=== PATIENT | male | born 1995 | race African-American/Black ===

== ENCOUNTER 2018-02-26 02:37 | Emergency (ER) | payer SELFPAY ==
[2018-02-26 03:43] LABS: Absolute Lymphocytes (CBC) 3.6 K/uL (0.7-4.9); Absolute Monocytes 0.6 K/uL (0.1-1.3); Absolute Neutrophil 3.8 K/uL (1.8-8.0); Basophils % 0.6 % (0-1.3); Eosinophils % 0.9 % (0-4.4); Hematocrit 41.8 % (39.6-49.0); Lymphocytes % 44.4 % (15.3-44.8); MCH 28.9 pg (27.0-35.0); MCV 88.2 fL (80-100); MPV 10.8 fL (7.6-11.3); Monocytes % 7.7 % (3.3-12.3); RBC Red Blood Cell Count 4.74 M/uL (4.33-5.43)
[2018-02-26 03:45] LABS: Protime INR 0.97
[2018-02-26 03:59] LABS: CKMB Creatine Kinase MB 0.9 ng/ml (0.3-4.0)
[2018-02-26 04:01] LABS: Bicarbonate 29 mEq/L (21-31); Potassium 3.8 mEq/L (3.6-5.0); Sodium Level 132 mEq/L (135-145)
[2018-02-26 04:02] LABS: Albumin 3.6 g/dL (3.2-5.5); Alkaline Phosphatase 112 IU/L (42-121); BUN Blood Urea Nitrogen 11 mg/dL (6-20); Bilirubin Direct 0.2 mg/dL (0-0.2); Magnesium 1.8 mg/dL (1.8-2.5); Protein, Total 7.4 g/dL (6.0-8.3)
[2018-02-26 04:03] LABS: ALT/SGPT 41 IU/L (10-60); AST/SGOT 24 IU/L (10-42); Creatine Phosphokinase 102 IU/L (22-269); Glucose Level 485 mg/dL (65-120)
[2018-02-26] MEDS ORDERED: INSULIN -REGULAR HUMAN 50 UNIT/0.5 ML ML ONE (04:18)
--- NOTE | 2018-02-26 06:17 | ER ---
Nurse's Notes [facility] Name: Enriqueta Hearn Age: 22 yrs Sex: Male : 1995 Arrival Date: 02/26/2018 Time: 02:38 Bed 5 Private MD: Diagnosis: Chest pain, unspecified;Chest pain on breathing Presentation: 02/26 02:39 Presenting complaint: Patient states: Chest pain to center of chest. pt c/o SOB, no ak1 resp distress noted in ER5. 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 pt stated chest pain started around 0100. Transition of care: patient was not received from another setting of care. Onset of symptoms was February 26, 2018. Initial Sepsis Screen: Does the patient meet any 2 criteria? No. Patient's initial sepsis screen is negative. Does the patient have a suspected source of infection? No. Patient's initial sepsis screen is negative. Care prior to arrival: None. 02:39 Method Of Arrival: EMS: [facility] ak1 02:39 Acuity: HARESH 3 ak1 Triage Assessment: 02:43 General: Appears in no apparent distress. Behavior is calm, cooperative. Pain: ak1 Complains of pain in chest. EENT: No signs and/or symptoms were reported regarding the EENT system. Neuro: No deficits noted. Cardiovascular: Reports chest pain, shortness of breath. Respiratory: Reports shortness of breath at rest Airway Breath sounds are clear. GI: No signs and/or symptoms were reported involving the gastrointestinal system. : No signs and/or symptoms were reported regarding the genitourinary system. Derm: No signs and/or symptoms reported regarding the dermatologic system. Musculoskeletal: No signs and/or symptoms reported regarding the musculoskeletal system. Historical: - Allergies: 02:43 No Known Allergies; ak1 - Home Meds: 02:43 Metformin Oral [Active]; lisinopril Oral [Active]; Glipizide Oral [Active]; ak1 - PMHx: 02:43 Diabetes - NIDDM; Hypertension; Seizures; ak1 - PSHx: 02:43 left foot sx hardware; ak1 - Immunization history:: Adult Immunizations unknown. - Social history:: Smoking status: Patient/guardian denies using tobacco, Patient/guardian denies using alcohol, street drugs, The patient lives with family. - Family history:: not pertinent. Screenin:45 Abuse screen: Denies threats or abuse. Denies injuries from another. Nutritional ak1 screening: No deficits noted. Tuberculosis screening: No symptoms or risk factors identified. Fall Risk None identified. Assessment: 02:45 Pain: Pain does not radiate. Pain began 2 hours ago. ak1 02:46 Reassessment: Patient appears in no apparent distress at this time. No changes from ak1 previously documented assessment. Patient is alert, oriented x 3, equal unlabored respirations, skin warm/dry/pink. see triage assessment. 04:56 Reassessment: Patient appears in no apparent distress at this time. pt appears to be ak1 sleeping, eyes closed, resp even and unlabored, skin warm and dry. will continue to monitor. 06:11 Reassessment: Patient appears in no apparent distress at this time. No changes from ak1 previously documented assessment. Vital Signs: 02:39 BP 128 / 78; Pulse 73; Resp 16; Temp 98.4(O); Pulse Ox 98% on R/A; Weight 129.27 kg ak1 (R); Height 6 ft. 1 in. (185.42 cm) (R); Pain 6/10; 04:55 BP 110 / 65; Pulse 70; Resp 16; Pulse Ox 99% on R/A; Pain 0/10; ak1 06:10 BP 107 / 61; Pulse 84; Resp 16; Pulse Ox 99% on R/A; Pain 0/10; ak1 02:39 Body Mass Index 37.60 (129.27 kg, 185.42 cm) ak1 ED Course: 02:38 Patient arrived in ED. ds1 02:39 Paola Carvalho, RN is Primary Nurse. ak1 02:39 Griselda Coker MD is Attending Physician. ma2 02:41 Triage completed. ak1 02:43 Arm band placed on Patient placed in an exam room, on a stretcher, on pulse oximetry, ak1 Patient notified of wait time. 02:44 No provider procedures requiring assistance completed. Inserted saline lock: 20 gauge ak1 in right antecubital area, using aseptic technique. ,using aseptic technique. placed by Fiona Rubalcava RN Blood collected. Patient maintains SpO2 saturation greater than 95% on room air. 02:45 Patient has correct armband on for positive identification. Placed in gown. Bed in low ak1 position. Call light in reach. Side rails up X 1. Pulse ox on. NIBP on. 02:55 X-ray completed. Portable x-ray completed in exam room. Patient tolerated procedure kw well. 02:55 XRAY Chest (1 view) In Process Unspecified. EDMS 04:03 Notified ED physician of a critical lab result(s). Glucose 485. lp1 05:48 Repeat lab(s) drawn. by me, sent to lab. ak1 06:30 IV discontinued, intact, bleeding controlled, No redness/swelling at site. Pressure ak1 dressing applied. Administered Medications: 04:19 Drug: Insulin Regular Human 8 units {Co-Signature: chuyita (Fiona Mcneil RN).} Route: IVP; ak1 Site: right antecubital; 04:52 Follow up: Response: No adverse reaction ak1 05:09 Follow up: Response: Blood sugar is lowered; Blood sugar is lowered, ERP notified ak1 Point of Care Testing: Blood Glucose: 02:46 Blood Glucose: 420 mg/dL; ak1 04:25 Blood Glucose: 420 mg/dL; lp1 04:55 Blood Glucose: 337 mg/dL; ak1 Ranges: Outcome: 06:16 Discharge ordered by . ma2 06:29 Discharged to home ambulatory. ak1 06:29 Condition: good 06:29 Discharge instructions given to patient, Instructed on discharge instructions, follow up and referral plans. no drinking with medication, no driving heavy equipment, medication usage, Demonstrated understanding of instructions, follow-up care, medications, Prescriptions given X 1. 06:36 Patient left the ED. ak1 Signatures: Dispatcher [employer] [facility] Alexa Yoo Lyndsay Trinh Laura, RN RN lp1 Paola Carvalho RN RN ro1 Griselda Coker MD MD ma2 Laura Pena RN lp1
--- NOTE | 2018-02-26 06:17 | EDPHYS ---
Physician Documentation [facility] Name: Enriqueta Hearn Age: 22 yrs Sex: Male : 1995 Arrival Date: 02/26/2018 Time: 02:38 Bed 5 Private MD: ED Physician Griselda Coker HPI: 02/26 03:30 This 22 yrs old Black Male presents to ER via EMS with complaints of Chest Pain. ma2 03:30 The patient or guardian reports chest pain that is located primarily in the substernal ma2 area. The pain radiates to Associated signs and symptoms: Pertinent positives: Pertinent negatives: abdominal pain, cough, diaphoresis, headache, shortness of breath, syncope, vomiting. Duration: The patient or guardian reports a single episode, that is now resolved. Severity of pain: At its worst the pain was mild. The patient has not experienced similar symptoms in the past. had hx of cardiomyopathy when he was 5 yrs old that is resolved here with chest pain x 2 hrs that is been constant and worse with deep breath . Historical: - Allergies: 02:43 No Known Allergies; ak1 - Home Meds: 02:43 Metformin Oral [Active]; lisinopril Oral [Active]; Glipizide Oral [Active]; ak1 - PMHx: 02:43 Diabetes - NIDDM; Hypertension; Seizures; ak1 - PSHx: 02:43 left foot sx hardware; ak1 - Immunization history:: Adult Immunizations unknown. - Social history:: Smoking status: Patient/guardian denies using tobacco, Patient/guardian denies using alcohol, street drugs, The patient lives with family. - Family history:: not pertinent. ROS: 03:30 Constitutional: Negative for fever, chills, and weight loss. ma2 03:30 Cardiovascular: Positive for chest pain. 03:30 All other systems are negative. Exam: 03:30 Constitutional: This is a well developed, well nourished patient who is awake, alert, ma2 and in no acute distress. Head/Face: Normocephalic, atraumatic. Chest/axilla: Normal chest wall appearance and motion. Nontender with no deformity. No lesions are appreciated. Cardiovascular: Regular rate and rhythm with a normal S1 and S2. No gallops, murmurs, or rubs. Normal PMI, no JVD. No pulse deficits. Respiratory: Lungs have equal breath sounds bilaterally, clear to auscultation and percussion. No rales, rhonchi or wheezes noted. No increased work of breathing, no retractions or nasal flaring. Abdomen/GI: Soft, non-tender, with normal bowel sounds. No distension or tympany. No guarding or rebound. No evidence of tenderness throughout. MS/ Extremity: Pulses equal, no cyanosis. Neurovascular intact. Full, normal range of motion. Neuro: Awake and alert, GCS 15, oriented to person, place, time, and situation. Cranial nerves II-XII grossly intact. Motor strength 5/5 in all extremities. Sensory grossly intact. Cerebellar exam normal. Normal gait. Vital Signs: 02:39 BP 128 / 78; Pulse 73; Resp 16; Temp 98.4(O); Pulse Ox 98% on R/A; Weight 129.27 kg ak1 (R); Height 6 ft. 1 in. (185.42 cm) (R); Pain 6/10; 04:55 BP 110 / 65; Pulse 70; Resp 16; Pulse Ox 99% on R/A; Pain 0/10; ak1 06:10 BP 107 / 61; Pulse 84; Resp 16; Pulse Ox 99% on R/A; Pain 0/10; ak1 02:39 Body Mass Index 37.60 (129.27 kg, 185.42 cm) ak1 MDM: 02:40 Patient medically screened. ma2 03:30 Differential diagnosis: anxiety, chest wall pain, costochondritis, gastroesophageal ma2 reflux disease (GERD), unlikely aortic dissection given CXR with no widend mediastinum and CP is pleuretic. 06:15 HEART Score: History: Slightly Suspicious (0), ECG: Non specific repolarization ma2 disturbance / LBTB / PM (1), Age: < or = 45 years (0), Troponin: < or = 1 x Normal Limit (0). MOHAMUD Risk Score: TOTAL SCORE = 1. Data reviewed: vital signs, nurses notes, EMS record, penitentiary records, lab test result(s), EKG, radiologic studies. Counseling: I had a detailed discussion with the patient and/or guardian regarding: the historical points, exam findings, and any diagnostic results supporting the discharge/admit diagnosis, the presence of at least one elevated blood pressure reading (>120/80) during this emergency department visit, the need for outpatient follow up. 02/26 02:40 Order name: Basic Metabolic Panel; Complete Time: 04:39 02/26 02:40 Order name: BNP; Complete Time: 04:39 02/26 02:40 Order name: CBC with Diff; Complete Time: 04:39 02/26 02:40 Order name: Ckmb; Complete Time: 04:39 02/26 02:40 Order name: CPK; Complete Time: 04:39 02/26 02:40 Order name: LFT's; Complete Time: 04:39 02/26 02:40 Order name: Magnesium; Complete Time: 04:39 02/26 02:40 Order name: PT-INR; Complete Time: 04:39 02/26 02:40 Order name: Ptt, Activated; Complete Time: 04:39 02/26 02:40 Order name: Troponin (emerg Dept Use Only); Complete Time: 04:39 02/26 02:40 Order name: XRAY Chest (1 view) 02/26 02:40 Order name: EKG; Complete Time: 02:41 02/26 05:10 Order name: Troponin (emerg Dept Use Only) [facility] 02/26 02:40 Order name: Cardiac monitoring; Complete Time: 02:51 02/26 02:40 Order name: EKG - Nurse/Tech; Complete Time: 03:00 02/26 02:40 Order name: IV Saline Lock; Complete Time: 02:51 02/26 02:40 Order name: Labs collected and sent; Complete Time: 02:51 02/26 02:40 Order name: O2 Per Protocol; Complete Time: 02:51 02/26 02:40 Order name: O2 Sat Monitoring; Complete Time: 02:51 ma Administered Medications: 04:19 Drug: Insulin Regular Human 8 units {Co-Signature: [email or web address] (Fiona Mcneil RN).} Route: IVP; ak1 Site: right antecubital; 04:52 Follow up: Response: No adverse reaction ak1 05:09 Follow up: Response: Blood sugar is lowered; Blood sugar is lowered, ERP notified ak1 Point of Care Testing: Blood Glucose: 02:46 Blood Glucose: 420 mg/dL; ak1 04:25 Blood Glucose: 420 mg/dL; lp1 04:55 Blood Glucose: 337 mg/dL; ak1 Ranges: Critical Glucose Levels:Adult <50 mg/dl or >400 mg/dl <40 mg/dl or >180 mg/dl Disposition: 02/26/18 06:16 Discharged to Home. Impression: Chest pain, unspecified, Chest pain on breathing. - Condition is Stable. - Prescriptions for Tylenol- Codeine #3 300-30 mg Oral Tablet - take 2 tablet by ORAL route every 6 hours As needed; 30 tablet. - Work release form, Medication Reconciliation Form, Thank You Letter, Antibiotic Education, Prescription Opioid Use form. - Follow up: Private Physician; When: Tomorrow; Reason: Continuance of care. - Problem is new. - Symptoms have improved. Signatures: Dispatcher [employer] Paola Garcia RN RN ak1 Griselda Coker MD MD ma2 Fiona Mcneil RN lp1 Corrections: (The following items were deleted from the chart) 06:29 02:40 Urine Dipstick-Ancillary ordered. [facility] ak1 06:36 06:16 02/26/2018 06:16 Discharged to Home. Impression: Chest pain, unspecified; Chest ak1 pain on breathing. Condition is Stable. Forms are Medication Reconciliation Form, Thank You Letter, Antibiotic Education, Prescription Opioid Use. Follow up: Private Physician; When: Tomorrow; Reason: Continuance of care. Problem is new. Symptoms have improved. ma2
--- NOTE | 2018-02-26 06:53 | EKG ---
Test Date: 2018-02-26 Test Time: 02:58:57 Chest Painting Leader: EFRAIN MEASUREMENT RESULTS: Intervals: Rate: 69 AL: 152 QRSD: 122 QT: 416 QTc: 445 [place]: P: 32 AL: 152 QRS: 80 T: 23 INTERPRETIVE STATEMENTS: Normal sinus rhythm Nonspecific intraventricular conduction delay Borderline ECG Compared to ECG 03/03/2016 01:44:45 Intraventricular conduction delay now present Incomplete right bundle-branch block no longer present ST (T wave) deviation no longer present Myocardial infarct finding no longer present Electronically Signed On 02-26-18 06:53:21 CDT by Balbir Wilkinson
--- NOTE | 2018-02-26 08:15 | RAD REPORT ---
EXAM DESCRIPTION: Jesus Single View02/26/2018 2:57 am CLINICAL HISTORY: Chest pain COMPARISON: 2016 FINDINGS: The lungs appear clear of acute infiltrate. The heart is normal size IMPRESSION: No acute abnormalities displayed
== END 2018-02-26 06:36 | disposition home or self-care (01) ==
LOC: ER 02:37
DX: R07.1 Chest pain on breathing (principal); I10 Essential (primary) hypertension; E11.9 Type 2 diabetes mellitus without complications; Z79.4 Long term (current) use of insulin
CPT/HCPCS: 36415; 71045; 80048; 80076; 82550; 82553; 82962; 83735; 83880; 84484; 85025; 85610; 85730; 93005; 96374; 99285

== ENCOUNTER 2018-09-16 18:41 | Emergency (ER) | payer SELFPAY ==
[2018-09-16] MEDS ORDERED: KETOROLAC 30 MG/ML INJ ONE (19:51)
[2018-09-16 20:24] LABS: Absolute Lymphocytes (CBC) 3.3 K/uL (0.7-4.9); Absolute Monocytes 0.9 K/uL (0.1-1.3); Absolute Neutrophil 5.9 K/uL (1.8-8.0); Eosinophils % 0.3 % (0-4.4); Hematocrit 41.7 % (39.6-49.0); Lymphocytes % 32.4 % (15.3-44.8); MCH 29.9 pg (27.0-35.0); MCV 87.5 fL (80-100); MPV 9.9 fL (7.6-11.3); Monocytes % 8.9 % (3.3-12.3); RBC Red Blood Cell Count 4.76 M/uL (4.33-5.43)
[2018-09-16 20:24] LABS: Urine Blood NEGATIVE (NEG); Urine Glucose 2+ (NEG); Urine Protein NEGATIVE (NEG); Urine pH 5.5 (5.0-7.0)
[2018-09-16] MEDS ORDERED: INSULIN -REGULAR HUMAN 50 UNIT/0.5 ML ML ONE (20:43)
[2018-09-16 20:47] LABS: BUN Blood Urea Nitrogen 12 mg/dL (7-18); Bicarbonate 27 mmol/L (21-32); Glucose Level 325 mg/dL (74-106); Potassium 4.6 mmol/L (3.5-5.1); Sodium Level 136 mmol/L (136-145)
[2018-09-16 21:04] LABS: Urine Bacteria <20 /HPF (NONE SEEN); Urine Culture Reflex Order NOT NEEDED; Urine RBC <5 /HPF (NONE SEEN)
--- NOTE | 2018-09-16 21:14 | ER ---
Nurse's Notes [facility] Name: Enriqueta Hearn Age: 22 yrs Sex: Male : 1995 Arrival Date: 09/16/2018 Time: 18:44 Bed 10 Private MD: None, None Diagnosis: Low back pain;Diabetes mellitus due to underlying condition with hyperglycemia Presentation: 09/16 19:03 Presenting complaint: Patient states: "For the past 2 days I've been having these deep aj1 pain in my back. I haven't had these in 3 years or so. If I move a certain way it comes back and it wont go away for hours" Denies injury. Transition of care: patient was not received from another setting of care. Onset of symptoms was September 14, 2018. Risk Assessment: Do you want to hurt yourself or someone else? Patient reports no desire to harm self or others. Initial Sepsis Screen: Does the patient meet any 2 criteria? No. Patient's initial sepsis screen is negative. Does the patient have a suspected source of infection? No. Patient's initial sepsis screen is negative. Care prior to arrival: None. 19:03 Method Of Arrival: Ambulatory aj1 19:03 Acuity: HARESH 4 aj1 Triage Assessment: 19:05 General: Appears in no apparent distress. uncomfortable, Behavior is calm, cooperative, aj1 appropriate for age. Pain: Complains of pain in back Pain currently is 7 out of 10 on a pain scale. Neuro: Level of Consciousness is awake, alert, obeys commands. Cardiovascular: Patient's skin is warm and dry. Respiratory: Airway is patent Respiratory effort is even, unlabored, Respiratory pattern is regular, symmetrical. Musculoskeletal: Range of motion: intact in all extremities. Historical: - Allergies: 19:05 No Known Allergies; aj1 - Home Meds: 19:05 None [Active]; aj1 - PMHx: 19:05 Diabetes - NIDDM; Hypertension; Seizures; aj1 - Immunization history:: Flu vaccine is up to date. - Social history:: Smoking status: Patient/guardian denies using tobacco. - Ebola Screening: : Patient denies travel to an Ebola-affected area in the 21 days before illness onset. Screenin:49 Abuse screen: none noted. Nutritional screening: No deficits noted. Tuberculosis jl3 screening: No symptoms or risk factors identified. Fall Risk None identified. Assessment: 19:39 General: Appears uncomfortable, Behavior is calm, cooperative. General: Pt states jlCecy played basketball earlier in the day, Was walking home and back started hurting with pain radiating to knees. Walked into ER. Pain: Complains of pain in back. Neuro: No deficits noted. Neuro: Level of Consciousness is awake, alert, obeys commands, Oriented to person, place, time, situation, Licensed Funeral Director are equal bilaterally Moves all extremities. Full function Gait is steady, Speech is normal, Facial symmetry appears normal, Pupils are PERRLA, Intact. Cardiovascular: No deficits noted. Respiratory: No deficits noted. GI: No deficits noted. EENT: No deficits noted. Vital Signs: 19:05 BP 135 / 90; Pulse 95; Resp 20; Temp 97.5; Pulse Ox 99% on R/A; Weight 106.59 kg (R); aj1 Height 6 ft. 1 in. (185.42 cm) (R); Pain 7/10; 19:34 BP 133 / 83; Pulse 78; Resp 18; Pulse Ox 98% on R/A; mt 20:42 BP 142 / 86; Pulse 78; Resp 18; Pulse Ox 98% on R/A; mt 19:05 Body Mass Index 31.00 (106.59 kg, 185.42 cm) aj1 ED Course: 18:44 Patient arrived in ED. mr 18:45 None, None is Private Physician. mr 19:04 Triage completed. aj1 19:05 Arm band placed on Patient placed in waiting room, Patient notified of wait time. aj1 19:24 Andre Tobias PA is PHCP. cp 19:24 Andre Shelley MD is Attending Physician. cp 19:39 Luis Todd, CRIS is Primary Nurse. jl3 20:10 Inserted saline lock: 20 gauge in right antecubital area, using aseptic technique. mt Blood collected. 22:49 No provider procedures requiring assistance completed. IV discontinued. jl3 22:50 Patient has correct armband on for positive identification. jl3 Administered Medications: 19:55 Drug: TORadol 60 mg Route: IM; Site: right gluteus; jl3 20:17 Follow up: Response: No adverse reaction; Pain is decreased jl3 20:39 Drug: NovoLIN R 10 units {Co-Signature: bb (Marya gNuyen RN).} {Note: Per FSBS 302.} jl3 Route: Sub-Q; Site: left upper arm; 22:51 Follow up: Response: No adverse reaction jl3 Point of Care Testing: Blood Glucose: 20:10 Blood Glucose: 302 mg/dL; tn Ranges: Outcome: 21:13 Discharge ordered by . jb 22:50 Discharged to home ambulatory. jl3 22:50 Condition: stable 22:50 Discharge instructions given to patient, Prescriptions given X 3. 22:51 Patient left the ED. jl3 Signatures: Susu Alvarez, RN RN aj1 Jaylon, Emy mr PeytonLuis RN RN jl3 Andre Tobias PA PA cp Thompson, Moriah tn Marya sosa
--- NOTE | 2018-09-16 21:14 | EDPHYS ---
Physician Documentation [facility] Name: Enriqueta Hearn Age: 22 yrs Sex: Male : 1995 Arrival Date: 09/16/2018 Time: 18:44 Bed 10 Private MD: None, None ED Physician Andre Shelley HPI: 09/16 19:35 This 22 yrs old Black Male presents to ER via Ambulatory with complaints of Back Pain. cp 19:35 The patient presents with pain that is acute, with no known mechanism of injury. The cp symptoms are located in the low back. Onset: The symptoms/episode began/occurred 2 day(s) ago. The pain does not radiate. Associated signs and symptoms: Pertinent negatives: abdominal pain, chest pain, constipation, dysuria, fever, hematuria, incontinence, numbness, tingling, urinary retention, weakness. The problem was sustained from unknown cause. Modifying factors: the patient symptoms are aggravated by movement. Severity of symptoms: in the emergency department the symptoms are unchanged, despite home interventions. The patient has experienced similar episodes in the past, a few times. Historical: - Allergies: 19:05 No Known Allergies; aj1 - Home Meds: 19:05 None [Active]; aj1 - PMHx: 19:05 Diabetes - NIDDM; Hypertension; Seizures; aj1 - Immunization history:: Flu vaccine is up to date. - Social history:: Smoking status: Patient/guardian denies using tobacco. - Ebola Screening: : Patient denies travel to an Ebola-affected area in the 21 days before illness onset. ROS: 19:40 Constitutional: Negative for body aches, chills, fever, poor PO intake. cp 19:40 Eyes: Negative for injury, pain, redness, and discharge. cp 19:40 ENT: Negative for ear pain, sore throat, difficulty swallowing, difficulty handling secretions. 19:40 Cardiovascular: Negative for chest pain, edema, palpitations. 19:40 Respiratory: Negative for cough, shortness of breath, wheezing. 19:40 Abdomen/GI: Negative for abdominal pain, nausea, vomiting, and diarrhea. 19:40 Back: Positive for pain with movement, of the low back area, Negative for injury or acute deformity, decreased range of motion, radiated pain. 19:40 : Negative for urinary symptoms, difficulty urinating, testicular pain 19:40 MS/extremity: Negative for injury or acute deformity, decreased range of motion, pain, paresthesias, swelling. 19:40 Skin: Negative for cellulitis, rash. 19:40 Neuro: Negative for dizziness, numbness, tingling, weakness. 19:40 All other systems are negative. Exam: 19:48 Constitutional: The patient appears in no acute distress, alert, awake, cp non-diaphoretic, non-toxic, well developed, well nourished, overweight 19:48 Head/Face: Normocephalic, atraumatic. cp 19:48 Eyes: Periorbital structures: appear normal, Conjunctiva: normal, no exudate, no injection, Sclera: no appreciated abnormality, Lids and lashes: appear normal, bilaterally. 19:48 ENT: External ear(s): are unremarkable, Nose: is normal, Mouth: is normal, Posterior pharynx: is normal, airway is patent, no erythema, no exudate. 19:48 Neck: ROM/movement: is normal, is supple, without pain, no range of motions limitations, no nuchal rigidity. 19:48 Chest/axilla: Inspection: normal, Palpation: is normal, no crepitus, no tenderness. 19:48 Cardiovascular: Rate: normal, Rhythm: regular, Heart sounds: murmur, not appreciated, Edema: is not appreciated. 19:48 Respiratory: the patient does not display signs of respiratory distress, Respirations: normal, no use of accessory muscles, no retractions, no splinting, no tachypnea, labored breathing, is not present, Breath sounds: are clear throughout, no decreased breath sounds, no stridor, no wheezing. 19:48 Abdomen/GI: Inspection: abdomen appears normal, Bowel sounds: active, all quadrants, Palpation: abdomen is soft and non-tender, in all quadrants. 19:48 Back: pain, that is mild, of the low back area, ROM is painful, with flexion, muscle spasm, is not present, Straight leg raises: of both lower extremities does not illicit pain. 19:48 Skin: cellulitis, is not appreciated, no rash present. 19:48 Neuro: Orientation: to person, place \T\ time. Mentation: is normal, Cerebellar function: is grossly normal, Motor: moves all fours, strength is normal, Sensation: is normal, Gait: is steady, Deep tendon reflexes are 2+ (normal) in the right patellar, right Achilles, left patellar and left Achilles. Vital Signs: 19:05 BP 135 / 90; Pulse 95; Resp 20; Temp 97.5; Pulse Ox 99% on R/A; Weight 106.59 kg (R); aj1 Height 6 ft. 1 in. (185.42 cm) (R); Pain 7/10; 19:34 BP 133 / 83; Pulse 78; Resp 18; Pulse Ox 98% on R/A; mt 20:42 BP 142 / 86; Pulse 78; Resp 18; Pulse Ox 98% on R/A; mt 19:05 Body Mass Index 31.00 (106.59 kg, 185.42 cm) aj1 MDM: 19:25 Patient medically screened. robert 20:00 Differential diagnosis: Cholelithiasis Pyelonephritis ruptured disc, sprain, cp Ureterolithiasis. 21:10 Data reviewed: vital signs, nurses notes, lab test result(s), and as a result, I will cp discharge patient. 21:10 Counseling: I had a detailed discussion with the patient and/or guardian regarding: the cp historical points, exam findings, and any diagnostic results supporting the discharge/admit diagnosis, lab results, the need for outpatient follow up, for definitive care, a family practitioner, to return to the emergency department if symptoms worsen or persist or if there are any questions or concerns that arise at home. Response to treatment: the patient's symptoms have markedly improved after treatment, VSS. Labs reviewed and discussed with patient concerning elevated glucose. Patient reports he has not been taking prescribed meds for diabetes. Will discharge to home for continued monitoring. 09/16 19: Order name: Urine Microscopic Only; Complete Time: 21:06 09/16 19:56 Order name: Urine Dipstick--Ancillary (enter results); Complete Time: 20:34 ar5 09/16 19:57 Order name: BMP; Complete Time: 21:06 09/16 21:06 Interpretation: Normal except: GLUC 325. 09/16 19:57 Order name: CBC with Diff; Complete Time: 20:34 09/16 19:25 Order name: Urine Dipstick-Ancillary (obtain specimen); Complete Time: 19:52 09/16 19:57 Order name: Accucheck Blood Glucose; Complete Time: 20:10 cp Administered Medications: 19:55 Drug: TORadol 60 mg Route: IM; Site: right gluteus; jl3 20:17 Follow up: Response: No adverse reaction; Pain is decreased jl3 20:39 Drug: NovoLIN R 10 units {Co-Signature: ian (Marya Nguyen RN).} {Note: Per FSBS 302.} jl3 Route: Sub-Q; Site: left upper arm; 22:51 Follow up: Response: No adverse reaction jl3 Point of Care Testing: Blood Glucose: 20:10 Blood Glucose: 302 mg/dL; mt Ranges: Critical Glucose Levels:Adult <50 mg/dl or >400 mg/dl <40 mg/dl or >180 mg/dl Disposition: 09/16/18 21:13 Discharged to Home. Impression: Low back pain, Diabetes mellitus due to underlying condition with hyperglycemia. - Condition is Stable. - Discharge Instructions: Form - Return To Work, Back Pain, Adult, Blood Glucose Monitoring, Adult, Diabetes Mellitus and Food, Back Exercises, [id number]. - Prescriptions for Anaprox DS 550 mg Oral Tablet - take 1 tablet by ORAL route every 12 hours As needed; 20 tablet. Metformin 500 mg Oral Tablet - take 1 tablet by ORAL route once daily for 7 days Then take 1 tablet with morning meals AND evening meals; 60 tablet. Cyclobenzaprine 10 mg Oral Tablet - take 1 tablet by ORAL route every 8 hours As needed no driving while taking medication; 20 tablet. - Family Work Release, Medication Reconciliation Form, Thank You Letter, Antibiotic Education, Prescription Opioid Use, Work release form form. - Follow up: Private Physician; When: 2 - 3 days; Reason: Recheck today's complaints. - Problem is new. - Symptoms have improved. Addendum: 09/18/2018 07:17 Co-signature as Attending Physician, Andre Shelley MD I agree with the assessment and c waldron plan of care. Signatures: Dispatcher [employer] Susu Enriquez RN RN aj1 Andre Shelley MD MD cha Lowman, John, RN RN jl3 Andre Tobias PA PA cp Marya sosa Corrections: (The following items were deleted from the chart) 09/16 22:51 21:13 09/16/2018 21:13 Discharged to Home. Impression: Low back pain; Diabetes mellitus jl3 due to underlying condition with hyperglycemia. Condition is Stable. Forms are Medication Reconciliation Form, Thank You Letter, Antibiotic Education, Prescription Opioid Use. Follow up: Private Physician; When: 2 - 3 days; Reason: Recheck today's complaints. Problem is new. Symptoms have improved. cp
== END 2018-09-16 22:51 | disposition home or self-care (01) ==
LOC: ER 18:41
DX: M54.5 Low back pain (principal); E11.65 Type 2 diabetes mellitus with hyperglycemia
CPT/HCPCS: 36415; 80048; 81003; 81015; 82962; 85025; 96372; 99284

== ENCOUNTER 2019-01-15 20:19 | Emergency (ER) | payer SELFPAY ==
--- NOTE | 2019-01-15 21:33 | EDPHYS ---
Physician Documentation [facility] Name: Enriqueta Hearn Age: 23 yrs Sex: Male : 1995 Arrival Date: 01/15/2019 Time: 20:24 Bed 14 Private MD: ED Physician Junaid Kilgore HPI: 01/15 21:25 This 23 yrs old Black Male presents to ER via Ambulatory with complaints of Eye pkl Swelling. 21:25 The patient is experiencing burning, redness, itching. Onset: The symptoms/episode pkl began/occurred 2 day(s) ago. Historical: - Allergies: 21:00 No Known Allergies; lp1 - Home Meds: 21:00 None [Active]; lp1 - PMHx: 21:00 Diabetes - NIDDM; Hypertension; Seizures; lp1 - PSHx: 21:00 None; lp1 - Immunization history:: Adult Immunizations up to date. - Social history:: Smoking status: Patient/guardian denies using tobacco. - Ebola Screening: : No symptoms or risks identified at this time. ROS: 21:25 ENT: Negative for injury, pain, and discharge. pkl 21:25 Eyes: Positive for itching, redness, swelling. 21:25 Neck: Negative for stiffness. 21:25 Cardiovascular: Negative for chest pain. 21:25 Respiratory: Negative for acute changes. 21:25 Abdomen/GI: Negative for abdominal pain, nausea, vomiting, and diarrhea. 21:25 Back: Negative for acute changes. 21:25 : Negative for urinary symptoms. 21:25 MS/extremity: Negative for acute changes. 21:25 Skin: Negative for rash. 21:25 Neuro: Negative for altered mental status. Exam: 21:28 Head/Face: Normocephalic, atraumatic. pkl 21:28 Eyes: Periorbital structures: swelling, that is mild, on the , Pupils: no acute changes, normal size, Conjunctiva: injected, in the right eye. 21:28 ENT: Exam is negative for acute changes. 21:28 Neck: Exam negative for acute changes. 21:28 Chest/axilla: Exam negative for acute changes. 21:28 Cardiovascular: Rate: normal, Rhythm: regular. 21:28 Respiratory: the patient does not display signs of respiratory distress, Respirations: normal, Breath sounds: are clear throughout. 21:28 Abdomen/GI: Exam negative for acute changes. 21:28 Back: Exam negative for acute changes. 21:28 : Exam negative for acute changes. 21:28 Musculoskeletal/extremity: Exam is negative for acute changes. 21:28 Skin: Exam negative for rash. 21:28 Neuro: Orientation: is normal, Mentation: is normal, Cranial nerves: grossly normal, Motor: is normal. Vital Signs: 20:59 BP 129 / 86; Pulse 80; Resp 18; Temp 98.5(O); Pulse Ox 98% on R/A; Weight 129.27 kg; lp1 Height 6 ft. 1 in. (185.42 cm); Pain 6/10; 20:59 Body Mass Index 37.60 (129.27 kg, 185.42 cm) lp1 Visual Acuity: 22:05 Left Eye Visual acuity 20/50, Pupil size 3 mm, Normal, React To Light, Reactive To jd3 Accomodation; Right Eye Visual acuity 20/50, Pupil size 3 mm, Normal, React To Light, Reactive To Accomodation; Both Eyes Visual acuity 20/25; Without Lenses; MDM: 21:17 Patient medically screened. pk 21:28 Data reviewed: vital signs, nurses notes. pkl 01/15 21:28 Order name: Visual Acuity; Complete Time: 22:07 pk Administered Medications: No medications were administered Disposition: 01/15/19 21:32 Discharged to Home. Impression: Conjunctivitis right eye. - Condition is Stable. - Medication Reconciliation Form, Thank You Letter, Antibiotic Education, Prescription Opioid Use, Work release form form. - Follow up: Ren Ashley MD; When: 2 - 3 days; Reason: Re-evaluation by your physician. - Problem is new. - Symptoms are unchanged. Signatures: Junaid Kilgore MD MD pkl Fiona Mcneil RN RN lp1 Lawrence Emerson, CRIS RN jd3 Corrections: (The following items were deleted from the chart) 22:07 21:32 01/15/2019 21:32 Discharged to Home. Impression: Conjunctivitis right eye. jd3 Condition is Stable. Forms are Medication Reconciliation Form, Thank You Letter, Antibiotic Education, Prescription Opioid Use. Follow up: Ren Ashley; When: 2 - 3 days; Reason: Re-evaluation by your physician. Problem is new. Symptoms are unchanged. pkl
--- NOTE | 2019-01-15 21:33 | ER ---
Nurse's Notes [facility] Name: Enriqueta Hearn Age: 23 yrs Sex: Male : 1995 Arrival Date: 01/15/2019 Time: 20:24 Bed 14 Private MD: Diagnosis: Conjunctivitis right eye Presentation: 01/15 20:59 Presenting complaint: Patient states: Redness to right eye for 2 days; Denies any lp1 trauma; Complaint of burning and itching to right eye. Transition of care: patient was not received from another setting of care. Onset of symptoms was January 14, 2019. Risk Assessment: Do you want to hurt yourself or someone else? Patient reports no desire to harm self or others. Initial Sepsis Screen: Does the patient meet any 2 criteria? No. Patient's initial sepsis screen is negative. Does the patient have a suspected source of infection? No. Patient's initial sepsis screen is negative. Care prior to arrival: None. 20:59 Method Of Arrival: Ambulatory lp1 20:59 Acuity: HARESH 5 lp1 Historical: - Allergies: 21:00 No Known Allergies; lp1 - Home Meds: 21:00 None [Active]; lp1 - PMHx: 21:00 Diabetes - NIDDM; Hypertension; Seizures; lp1 - PSHx: 21:00 None; lp1 - Immunization history:: Adult Immunizations up to date. - Social history:: Smoking status: Patient/guardian denies using tobacco. - Ebola Screening: : No symptoms or risks identified at this time. Screenin:00 Abuse screen: Denies threats or abuse. Denies injuries from another. Nutritional lp1 screening: No deficits noted. Tuberculosis screening: No symptoms or risk factors identified. Fall Risk None identified. Assessment: 21:13 General: Appears in no apparent distress. uncomfortable, Behavior is calm, cooperative, jd3 appropriate for age. Pain: Complains of pain in right eye Quality of pain is described as aching. Neuro: Level of Consciousness is awake, alert, obeys commands, Oriented to person, place, time, situation, Appropriate for age Pupils are PERRLA. Cardiovascular: Denies chest pain, Capillary refill < 3 seconds Patient's skin is warm and dry. Respiratory: Airway is patent Respiratory effort is even, unlabored, Respiratory pattern is regular, symmetrical. GI: No signs and/or symptoms were reported involving the gastrointestinal system. : No signs and/or symptoms were reported regarding the genitourinary system. EENT: Sclera/Cornea are reddened in right eye. Derm: Skin is intact, Skin is dry, Skin is normal, Skin temperature is warm. Musculoskeletal: Circulation, motion, and sensation intact. Range of motion: intact in all extremities. 22:05 Reassessment: Patient appears in no apparent distress at this time. Patient and/or jd3 family updated on plan of care and expected duration. Pain level reassessed. Patient is alert, oriented x 3, equal unlabored respirations, skin warm/dry/pink. Vital Signs: 20:59 BP 129 / 86; Pulse 80; Resp 18; Temp 98.5(O); Pulse Ox 98% on R/A; Weight 129.27 kg; lp1 Height 6 ft. 1 in. (185.42 cm); Pain 6/10; 20:59 Body Mass Index 37.60 (129.27 kg, 185.42 cm) lp1 Visual Acuity: 22:05 Left Eye Visual acuity 20/50, Pupil size 3 mm, Normal, React To Light, Reactive To jd3 Accomodation; Right Eye Visual acuity 20/50, Pupil size 3 mm, Normal, React To Light, Reactive To Accomodation; Both Eyes Visual acuity 20/25; Without Lenses; ED Course: 20:24 Patient arrived in ED. am2 20:59 Triage completed. lp1 21:00 Arm band placed on left wrist. lp1 21:11 Lawrence Emerson RN is Primary Nurse. jd3 21:14 Patient has correct armband on for positive identification. Bed in low position. Call jd3 light in reach. Side rails up X 1. 21:17 Junaid Kilgore MD is Attending Physician. pkl 21:31 Ren Ashley MD is Referral Physician. pkl 22:05 No provider procedures requiring assistance completed. Patient did not have IV access jd3 during this emergency room visit. Administered Medications: No medications were administered Outcome: 21:32 Discharge ordered by . pkl 22:06 Discharged to home ambulatory. jd3 22:06 Condition: stable 22:06 Discharge instructions given to patient, Instructed on discharge instructions, follow up and referral plans. Demonstrated understanding of instructions, follow-up care. 22:07 Patient left the ED. jd3 Signatures: Junaid Kilgore MD MD pkFiona Lilly RN RN lp1 Minal Real Jonathon, RN RN jd3
== END 2019-01-15 22:07 | disposition home or self-care (01) ==
LOC: ER 20:19
DX: H10.9 Unspecified conjunctivitis (principal); E11.9 Type 2 diabetes mellitus without complications; I10 Essential (primary) hypertension
CPT/HCPCS: 99282

== ENCOUNTER 2019-06-02 18:24 | Emergency (ER) | payer SELFPAY ==
[2019-06-02] MEDS ORDERED: DIPHENHYDRAMINE 50 MG/ML VIAL ONE (19:19)
[2019-06-02] MEDS ORDERED: METOCLOPRAMIDE 10 MG/2mL INJ ONE (19:19)
[2019-06-02] MEDS ORDERED: NA CHLORIDE 0.9% 1,000 ML ONE (19:19)
--- NOTE | 2019-06-02 21:16 | ER ---
Nurse's Notes [facility] Name: Enriqueta Hearn Age: 23 yrs Sex: Male : 1995 Arrival Date: 06/02/2019 Time: 18:26 Bed 19 Private MD: None, None Diagnosis: Migraine Presentation: 06/02 18:30 Presenting complaint: Patient states: for the last three days I have been getting la1 headaches and I have had one for the last 40 minutes. Transition of care: patient was not received from another setting of care. Onset of symptoms was June 02, 2019. Risk Assessment: Do you want to hurt yourself or someone else? Patient reports no desire to harm self or others. Initial Sepsis Screen: Does the patient meet any 2 criteria? No. Patient's initial sepsis screen is negative. Does the patient have a suspected source of infection? No. Patient's initial sepsis screen is negative. Care prior to arrival: None. 18:30 Method Of Arrival: Ambulatory la1 18:30 Acuity: HARESH 3 la1 Triage Assessment: 18:45 Headache History: The patient has had previous headaches and this one is similar to tr5 previous episodes. General: Appears uncomfortable, Behavior is calm, cooperative. Pain: Complains of pain in forehead Pain currently is 8 out of 10 on a pain scale. Quality of pain is described as sharp, Also complains of no other associated symptoms. Pain: Pain began gradually, Is continuous, Alleviated by rest, Aggravated by. EENT: No signs and/or symptoms were reported regarding the EENT system. Neuro: Level of Consciousness is awake, alert, Oriented to person, place, time, Superintendent Storage Area are equal bilaterally. Cardiovascular: Heart tones present Bruits absent Capillary refill < 3 seconds Pulses are all present. Edema is absent. Respiratory: Airway is patent Trachea midline Respiratory effort is even, unlabored, Respiratory pattern is regular, symmetrical, Breath sounds are clear bilaterally. GI: No signs and/or symptoms were reported involving the gastrointestinal system. : No signs and/or symptoms were reported regarding the genitourinary system. Derm: No signs and/or symptoms reported regarding the dermatologic system. Musculoskeletal: Capillary refill < 3 seconds, Range of motion: intact in all extremities. Historical: - Allergies: 18:31 No Known Allergies; la1 - PMHx: 18:31 Diabetes - NIDDM; Hypertension; Seizures; la1 - Immunization history:: Adult Immunizations up to date. - Social history:: Smoking status: Patient/guardian denies using tobacco. - Ebola Screening: : No symptoms or risks identified at this time. Screenin:37 Abuse screen: Denies threats or abuse. Nutritional screening: No deficits noted. em Tuberculosis screening: No symptoms or risk factors identified. Fall Risk None identified. Assessment: 18:45 General: Appears in no apparent distress. comfortable, Behavior is calm, cooperative, em Denies fever. Pain: Complains of pain in right side of face Pain currently is 8 out of 10 on a pain scale. Pain began 2-3 days ago. Neuro: Level of Consciousness is awake, alert, obeys commands, Oriented to person, place, time, situation, Reports blurred vision headache Denies weakness dizziness, headache. Cardiovascular: Capillary refill < 3 seconds Patient's skin is warm and dry. Respiratory: Airway is patent Respiratory effort is even, unlabored, Respiratory pattern is regular, symmetrical. GI: Patient currently denies nausea, vomiting. Derm: Skin is intact, is healthy with good turgor, Skin is pink, warm \T\ dry. Musculoskeletal: Capillary refill < 3 seconds, Range of motion: intact in all extremities. 19:28 Reassessment: Patient and/or family updated on plan of care and expected duration. Pain tr5 level reassessed. Patient is alert, oriented x 3, equal unlabored respirations, skin warm/dry/pink. 20:41 Reassessment: Patient and/or family updated on plan of care and expected duration. Pain tr5 level reassessed. Patient is alert, oriented x 3, equal unlabored respirations, skin warm/dry/pink. Patient states feeling better. 21:17 Reassessment: Patient and/or family updated on plan of care and expected duration. Pain tr5 level reassessed. Patient is alert, oriented x 3, equal unlabored respirations, skin warm/dry/pink. Patient states symptoms have improved. Vital Signs: 18:31 BP 128 / 75; Pulse 74; Resp 16; Temp 97.6; Pulse Ox 98% on R/A; Weight 129.27 kg; la1 Height 6 ft. 2 in. (187.96 cm); 19:28 BP 125 / 76; Pulse 70; Resp 16; Pulse Ox 100% on R/A; tr5 20:30 BP 128 / 74; Pulse 72; Resp 16; Pulse Ox 100% on R/A; tr5 18:31 Body Mass Index 36.59 (129.27 kg, 187.96 cm) la1 ED Course: 18:26 Patient arrived in ED. ag5 18:26 None, None is Private Physician. ag5 18:30 [facility] Rainey [facility] 18:30 Javier Abreu MD is Attending Physician. [facility] 18:31 Triage completed. la1 18:32 Arm band placed on right wrist. la1 18:37 Nikolai Hernandez LVN is Primary Nurse. em 18:37 Patient has correct armband on for positive identification. Bed in low position. Call em light in reach. 18:41 Andre Shelley MD is Attending Physician. jmm 19:15 Inserted saline lock: 22 gauge in right antecubital area, using aseptic technique. tr5 19:28 Door closed. Noise minimized. tr5 21:28 No provider procedures requiring assistance completed. IV discontinued. tr5 Administered Medications: 19:26 Drug: Reglan 10 mg Route: IVP; Site: right antecubital; tr5 20:41 Follow up: Response: No adverse reaction tr5 19:26 Drug: Benadryl 12.5 mg Route: IVP; Site: right antecubital; tr5 20:41 Follow up: Response: No adverse reaction tr5 19:27 Drug: NS 0.9% 1000 ml Route: IV; Rate: 1 bolus; Site: right antecubital; tr5 20:41 Follow up: Response: No adverse reaction; IV Status: Completed infusion; IV Intake: tr5 1000ml Intake: 20:41 IV: 1000ml; Total: 1000ml. tr5 Outcome: 21:15 Discharge ordered by . [facility] 21:28 Discharged to home ambulatory. tr5 21:28 Condition: stable 21:28 Discharge instructions given to patient, Instructed on discharge instructions, follow up and referral plans. medication usage, Demonstrated understanding of instructions, follow-up care, medications, Prescriptions given X 1. 21:29 Patient left the ED. tr5 Signatures: Oscar Rainey PA PA [facility] Nikolai Hernandez LVN [employer] Pravin Gardner, RN RN la1 Israel Lea5 Kenroy Greene, RN RN tr5
--- NOTE | 2019-06-02 21:16 | EDPHYS ---
Physician Documentation [facility] Name: Enriqueta Hearn Age: 23 yrs Sex: Male : 1995 Arrival Date: 06/02/2019 Time: 18:26 Bed 19 Private MD: None, None ED Physician Andre Shelley HPI: 06/02 18:41 This 23 yrs old Black Male presents to ER via Ambulatory with complaints of Headache. jmm 18:41 The patient complains of pain to the forehead and right adventist. Onset: The jmm symptoms/episode began/occurred gradually, 3 day(s) ago. Associated signs and symptoms: Pertinent negatives: fever, neck stiffness, paresthesias, sinus congestion, sinus tenderness, vision changes, vision loss, vomiting, weakness. Headache History: The patient has had previous headaches and this one is similar to previous episodes. This is a 23 year old male with a history of htn, DM, that presents to the ED with complaints of right sided headache beginning 3 days ago. Patient has similar headaches monthly. Patient has had ongoing headaches since the ago of 14 which have been similar. Patient unable to work due to pain and requests a work excuse. Denies any weakness or fever, . Historical: - Allergies: 18:31 No Known Allergies; la1 - PMHx: 18:31 Diabetes - NIDDM; Hypertension; Seizures; la1 - Immunization history:: Adult Immunizations up to date. - Social history:: Smoking status: Patient/guardian denies using tobacco. - Ebola Screening: : No symptoms or risks identified at this time. ROS: 18:41 Constitutional: Negative for fever, chills, and weight loss, Cardiovascular: Negative jmm for chest pain, palpitations, and edema, Respiratory: Negative for shortness of breath, cough, wheezing, and pleuritic chest pain, Abdomen/GI: Negative for abdominal pain, nausea, vomiting, diarrhea, and constipation. 18:41 Neuro: Positive for headache. 18:41 All other systems are negative. Exam: 18:41 Constitutional: This is a well developed, well nourished patient who is awake, alert, jmm and in no acute distress. Head/Face: atraumatic. Eyes: EOMI, no conjunctival erythema appreciated ENT: Moist Mucus Membranes Neck: Trachea midline, Supple Chest/axilla: Normal chest wall appearance and motion. Cardiovascular: Regular rate and rhythm. No edema appreciated Respiratory: Normal respirations, no respiratory distress appreciated Abdomen/GI: Non distended, soft Skin: General appearance color normal MS/ Extremity: Moves all extremities, no obvious deformities appreciated, no edema noted to the lower extremities 18:41 Neuro: Orientation: is normal, Mentation: is normal, Memory: is normal. 18:41 Psych: Behavior/mood is pleasant, cooperative. Vital Signs: 18:31 BP 128 / 75; Pulse 74; Resp 16; Temp 97.6; Pulse Ox 98% on R/A; Weight 129.27 kg; la1 Height 6 ft. 2 in. (187.96 cm); 19:28 BP 125 / 76; Pulse 70; Resp 16; Pulse Ox 100% on R/A; tr5 20:30 BP 128 / 74; Pulse 72; Resp 16; Pulse Ox 100% on R/A; tr5 18:31 Body Mass Index 36.59 (129.27 kg, 187.96 cm) la1 MDM: 18:41 Patient medically screened. [facility] 21:14 Data reviewed: vital signs, nurses notes. Counseling: I had a detailed discussion with mariah the patient and/or guardian regarding: the historical points, exam findings, and any diagnostic results supporting the discharge/admit diagnosis, the need for outpatient follow up, to return to the emergency department if symptoms worsen or persist or if there are any questions or concerns that arise at home. 21:14 ED course: Patient is alert and non toxic in appearance. No focal deficit appreciated. jmm I do not suspect SAH or meningitis. Similar headaches in the past. Gradual onset. Patient advised to follow up with pcp but otherwise given strict return precautions. Patient understood and agrees with the plan of care. . 06/02 18:48 Order name: Saline Lock; Complete Time: 19:27 [facility] Administered Medications: 19:26 Drug: Reglan 10 mg Route: IVP; Site: right antecubital; tr5 20:41 Follow up: Response: No adverse reaction tr5 :26 Drug: Benadryl 12.5 mg Route: IVP; Site: right antecubital; tr5 20:41 Follow up: Response: No adverse reaction tr5 19:27 Drug: NS 0.9% 1000 ml Route: IV; Rate: 1 bolus; Site: right antecubital; tr5 20:41 Follow up: Response: No adverse reaction; IV Status: Completed infusion; IV Intake: tr5 1000ml Disposition: 06/03 09:36 Co-signature as Attending Physician, Andre Shelley MD I agree with the assessment and [facility] plan of care. Disposition: 06/02/19 21:15 Discharged to Home. Impression: Migraine. - Condition is Stable. - Discharge Instructions: Migraine Headache. - Prescriptions for Fiorinal 50- 325-40 mg Oral Capsule - take 1 capsule by ORAL route every 4 hours As needed - not to exceed 6 capsules per day; 20 capsule. - Work release form, Medication Reconciliation Form, Thank You Letter, Antibiotic Education, Prescription Opioid Use form. - Follow up: Private Physician; When: 2 - 3 days; Reason: Recheck today's complaints, Continuance of care, Re-evaluation by your physician. Signatures: Andre Shelley MD MD cha Mickail, Joel, PA PA jmm Attema, Lee, RN RN laKenroy Laureano RN RN tr5 Corrections: (The following items were deleted from the chart) 06/02 21:29 21:15 06/02/2019 21:15 Discharged to Home. Impression: Migraine. Condition is Stable. tr5 Forms are Medication Reconciliation Form, Thank You Letter, Antibiotic Education, Prescription Opioid Use. Follow up: Private Physician; When: 2 - 3 days; Reason: Recheck today's complaints, Continuance of care, Re-evaluation by your physician. mariah
== END 2019-06-02 21:29 | disposition home or self-care (01) ==
LOC: ER 18:24
DX: G43.909 Migraine, unspecified, not intractable, without status migrainosus (principal); I10 Essential (primary) hypertension; E11.9 Type 2 diabetes mellitus without complications
CPT/HCPCS: 96361; 96374; 96375; 99283; J2765; J7030

== ENCOUNTER 2019-07-15 06:29 | Emergency (ER) | payer SELFPAY ==
--- NOTE | 2019-07-15 07:07 | ER ---
Nurse's Notes [facility] Name: Enriqueta Hearn Age: 23 yrs Sex: Male : 1995 Arrival Date: 07/15/2019 Time: 06:31 Bed 6 Private MD: Diagnosis: Dental caries Presentation: 07/15 06:52 Presenting complaint: Patient states: he has a toothache on right lower jaw since bb yesterday has not taken any medication. Transition of care: patient was not received from another setting of care. Onset of symptoms was July 14, 2019. Risk Assessment: Do you want to hurt yourself or someone else? Patient reports no desire to harm self or others. Initial Sepsis Screen: Does the patient meet any 2 criteria? No. Patient's initial sepsis screen is negative. Does the patient have a suspected source of infection? No. Patient's initial sepsis screen is negative. Care prior to arrival: None. 06:52 Method Of Arrival: Ambulatory bb 06:52 Acuity: HARESH 5 bb Triage Assessment: 06:54 General: Appears in no apparent distress. Pain: Complains of pain in right lower jaw bb Pain currently is 8 out of 10 on a pain scale. Pain began 1 day ago. EENT: Reports pain in right jaw. Neuro: Level of Consciousness is awake, alert, obeys commands, Oriented to person, place, time, situation. Cardiovascular: No deficits noted. Respiratory: Airway is patent Respiratory effort is even, unlabored. GI: No signs and/or symptoms were reported involving the gastrointestinal system. Derm: Skin is dry, Skin is normal, Skin temperature is warm. Musculoskeletal: Circulation, motion, and sensation intact. Historical: - Allergies: 06:54 No Known Allergies; bb - Home Meds: 06:54 None [Active]; bb - PMHx: 06:54 Diabetes - NIDDM; Hypertension; Seizures; bb - PSHx: 06:54 foot surgery; bb - Immunization history:: Adult Immunizations up to date. - Social history:: Smoking status: Patient/guardian denies using tobacco. - Ebola Screening: : No symptoms or risks identified at this time. Screenin:56 Abuse screen: Denies threats or abuse. Nutritional screening: No deficits noted. bb Tuberculosis screening: No symptoms or risk factors identified. Fall Risk None identified. Assessment: 06:56 Reassessment: No changes from previously documented assessment. see triage assessment. bb Vital Signs: 06:54 BP 120 / 87; Pulse 80; Resp 16 S; Temp 98.1(O); Pulse Ox 99% on R/A; Weight 129.27 kg bb (R); Height 6 ft. 1 in. (185.42 cm) (R); Pain 8/10; 06:54 Body Mass Index 37.60 (129.27 kg, 185.42 cm) bb ED Course: 06:31 Patient arrived in ED. ds1 06:32 Oscar Rainey PA is PHCP. [facility] 06:32 Andre Shelley MD is Attending Physician. [facility] 06:53 Triage completed. bb 06:54 Arm band placed on Patient placed in an exam room, on a stretcher, on pulse oximetry. bb 06:56 Patient has correct armband on for positive identification. Call light in reach. Pulse bb ox on. NIBP on. 06:56 No provider procedures requiring assistance completed. Patient did not have IV access bb during this emergency room visit. 07:10 Chantel Salazar, RN is Primary Nurse. jl7 Administered Medications: No medications were administered Outcome: 07:06 Discharge ordered by . [facility] 07:10 Discharged to home ambulatory, with family. sg 07:10 Condition: good 07:10 Discharge instructions given to patient, Instructed on discharge instructions, follow up and referral plans. safety practices, Demonstrated understanding of instructions, follow-up care, Prescriptions given X 2. 07:15 Patient left the ED. sg Signatures: Bridger Pulliam, RN RN Oscar Serna PA PA Alexa Saleem ds1 Marya Nguyen RN RN bb Chantel Salazar RN RN jl7
--- NOTE | 2019-07-15 07:08 | EDPHYS ---
Physician Documentation [facility] Name: Enriqueta Hearn Age: 23 yrs Sex: Male : 1995 Arrival Date: 07/15/2019 Time: 06:31 Bed 6 Private MD: ED Physician Andre Shelley HPI: 07/15 07:01 This 23 yrs old Black Male presents to ER via Ambulatory with complaints of Toothache. [facility] 07:01 The patient presents with pain. Onset: The symptoms/episode began/occurred gradually, jmm today. Duration: The symptoms are continuous. Modifying factors: The symptoms are alleviated by nothing, the symptoms are aggravated by nothing. Associated signs and symptoms: Pertinent negatives: fever. The patient has experienced a previous episode, approximately 3 weeks ago. This is a 23 year old male with a history of htn, DM, seizures that presents to the ED with complaints of left upper molar dental pain beginning earlier today. Patient states having a similar episode 3 weeks prior. Patient denies fever or chills. . Historical: - Allergies: 06:54 No Known Allergies; bb - Home Meds: 06:54 None [Active]; bb - PMHx: 06:54 Diabetes - NIDDM; Hypertension; Seizures; bb - PSHx: 06:54 foot surgery; bb - Immunization history:: Adult Immunizations up to date. - Social history:: Smoking status: Patient/guardian denies using tobacco. - Ebola Screening: : No symptoms or risks identified at this time. ROS: 07:01 Constitutional: Negative for fever, chills, and weight loss, Cardiovascular: Negative jm for chest pain, palpitations, and edema, Respiratory: Negative for shortness of breath, cough, wheezing, and pleuritic chest pain. 07:01 Back: Negative for injury and pain, MS/Extremity: Negative for injury and deformity. 07:01 ENT: Positive for dental pain. 07:01 All other systems are negative. Exam: 07:01 Constitutional: This is a well developed, well nourished patient who is awake, alert, jmm and in no acute distress. Head/Face: atraumatic. Eyes: EOMI, no conjunctival erythema appreciated 07:01 Neck: Trachea midline, Supple Chest/axilla: Normal chest wall appearance and motion. Cardiovascular: Regular rate and rhythm. No edema appreciated Respiratory: Normal respirations, no respiratory distress appreciated Abdomen/GI: Non distended, soft Back: Normal ROM Skin: General appearance color normal MS/ Extremity: Moves all extremities, no obvious deformities appreciated, no edema noted to the lower extremities Neuro: Awake and alert, normal gait Psych: Behavior is normal, Mood is normal, Patient is cooperative and pleasant 07:01 ENT: Dental exam: dental caries, that is moderate, specifically in the upper left second molar (#15). Vital Signs: 06:54 BP 120 / 87; Pulse 80; Resp 16 S; Temp 98.1(O); Pulse Ox 99% on R/A; Weight 129.27 kg bb (R); Height 6 ft. 1 in. (185.42 cm) (R); Pain 8/10; 06:54 Body Mass Index 37.60 (129.27 kg, 185.42 cm) bb MDM: 06:50 Patient medically screened. robert 07:01 Data reviewed: vital signs, nurses notes. Counseling: I had a detailed discussion with mariah the patient and/or guardian regarding: the historical points, exam findings, and any diagnostic results supporting the discharge/admit diagnosis, the need for outpatient follow up, to return to the emergency department if symptoms worsen or persist or if there are any questions or concerns that arise at home. ED course: Patient is alert and non toxic in appearance in the ED. Patient advised to follow up with dentist. Patient was otherwise given strict return precautions. Patient understood and agrees with the plan of re. . Administered Medications: No medications were administered Disposition: 09:16 Co-signature as Attending Physician, Andre Shleley MD I agree with the assessment and [facility] plan of care. Disposition: 07/15/19 07:06 Discharged to Home. Impression: Dental caries. - Condition is Stable. - Discharge Instructions: Dental Pain. - Prescriptions for Amoxicillin 875 mg Oral Tablet - take 1 tablet by ORAL route every 12 hours for 10 days; 20 tablet. Ibuprofen 800 mg Oral Tablet - take 1 tablet by ORAL route every 12 hours As needed take with food; 20 tablet. - Work release form, Medication Reconciliation Form, Thank You Letter, Antibiotic Education, Prescription Opioid Use form. - Follow up: Private Physician; When: 2 - 3 days; Reason: Recheck today's complaints, Continuance of care, Re-evaluation by your physician. Signatures: Bridger Pulliam RN RN Andre Morgan MD MD cha Mickail, Joel, PA PA jmm Ballard, Brenda, RN RN bb Corrections: (The following items were deleted from the chart) 07:15 07:06 07/15/2019 07:06 Discharged to Home. Impression: Dental caries. Condition is sg Stable. Forms are Medication Reconciliation Form, Thank You Letter, Antibiotic Education, Prescription Opioid Use. Follow up: Private Physician; When: 2 - 3 days; Reason: Recheck today's complaints, Continuance of care, Re-evaluation by your physician. mariah
[2019-07-15 07:20] VITALS: BP 120/87; TEMP 98.1; O2SAT 99
== END 2019-07-15 07:15 | disposition home or self-care (01) ==
LOC: ER 06:29
DX: K02.9 Dental caries, unspecified (principal); I10 Essential (primary) hypertension; E11.9 Type 2 diabetes mellitus without complications
CPT/HCPCS: 99283

== ENCOUNTER 2019-07-31 09:29 | Emergency (ER) | payer SELFPAY ==
--- NOTE | 2019-07-31 10:14 | ER ---
Nurse's Notes [facility] Name: Enriqueta Hearn Age: 23 yrs Sex: Male : 1995 Arrival Date: 07/31/2019 Time: 09:31 Bed 16 Private MD: Diagnosis: Dental caries Presentation: 07/31 09:39 Presenting complaint: Patient states: left side upper and lower tooth pain, swelling jl7 noted to left cheek. Transition of care: patient was not received from another setting of care. Onset of symptoms was July 29, 2019. Risk Assessment: Do you want to hurt yourself or someone else? Patient reports no desire to harm self or others. Initial Sepsis Screen: Does the patient meet any 2 criteria? No. Patient's initial sepsis screen is negative. Does the patient have a suspected source of infection? No. Patient's initial sepsis screen is negative. Care prior to arrival: None. 09:39 Method Of Arrival: Ambulatory jl7 09:39 Acuity: HARESH 4 jl7 Triage Assessment: 09:43 General: Appears in no apparent distress. uncomfortable, Behavior is calm, cooperative, jl7 appropriate for age. Pain: Complains of pain in left side of face/teeth Pain currently is 6 out of 10 on a pain scale. Quality of pain is described as throbbing, Pain began 2-3 days ago. Is continuous. EENT: Reports pain in mouth. Neuro: Level of Consciousness is awake, alert, obeys commands, Oriented to person, place, time, situation. Cardiovascular: Patient's skin is warm and dry. Respiratory: Airway is patent Respiratory effort is even, unlabored, Respiratory pattern is regular, symmetrical. Derm: Skin is dry, Skin is normal, Skin temperature is warm. Historical: - Allergies: 09:43 No Known Allergies; jl7 - Home Meds: :43 Metformin Oral [Active]; BP med [Active]; jl7 - PMHx: :43 Diabetes - NIDDM; Hypertension; Seizures; jl7 - PSHx: 09:43 foot surgery; jl7 - Immunization history:: Adult Immunizations unknown. - Social history:: Smoking status: Patient/guardian denies using tobacco. - Ebola Screening: : No symptoms or risks identified at this time. Screenin:00 Abuse screen: Denies threats or abuse. Denies injuries from another. Nutritional jl7 screening: No deficits noted. Tuberculosis screening: No symptoms or risk factors identified. Fall Risk None identified. Assessment: 10:00 General: see triage assessment. jl7 Vital Signs: 09:43 BP 123 / 83; Pulse 75; Resp 16 S; Temp 98.2(O); Pulse Ox 98% on R/A; Weight 129.27 kg jl7 (R); Height 6 ft. 1 in. (185.42 cm) (R); Pain 6/10; 10:24 BP 110 / 80; Pulse 74; Resp 16 S; Pulse Ox 100% on R/A; jl7 09:43 Body Mass Index 37.60 (129.27 kg, 185.42 cm) jl7 ED Course: 09:31 Patient arrived in ED. as 09:33 Chantel Salazar, RN is Primary Nurse. jl7 09:38 David Grant PA is PHCP. jr8 09:38 Andre Shelley MD is Attending Physician. jr8 09:40 Triage completed. jl7 09:43 Arm band placed on right wrist. jl7 10:00 Patient has correct armband on for positive identification. Bed in low position. Call jl7 light in reach. Side rails up X 1. Pulse ox on. NIBP on. 10:25 No provider procedures requiring assistance completed. Patient did not have IV access jl7 during this emergency room visit. Administered Medications: No medications were administered Outcome: 10:13 Discharge ordered by . jr8 10:25 Discharged to home ambulatory. jl7 10:25 Condition: stable 10:25 Discharge instructions given to patient, Instructed on discharge instructions, follow up and referral plans. medication usage, Demonstrated understanding of instructions, follow-up care, medications, Prescriptions given X 2. 10:25 Patient left the ED. jl7 Signatures: Nell Moyer as David Grant PA PA jr8 Chantel Salazar, RN RN jl7
--- NOTE | 2019-07-31 10:14 | EDPHYS ---
Physician Documentation [facility] Name: Enriqueta Hearn Age: 23 yrs Sex: Male : 1995 Arrival Date: 07/31/2019 Time: 09:31 Bed 16 Private MD: ED Physician Andre Shelley HPI: 07/31 10:15 This 23 yrs old Black Male presents to ER via Ambulatory with complaints of Toothache. jr8 10:15 The patient presents with broken tooth/teeth, pain. Onset: The symptoms/episode jr8 began/occurred 2 day(s) ago. Pt with ongoing dental pain, has had problem in the past, has plan to be seen at dental office. ABX have helped in the past. Historical: - Allergies: 09:43 No Known Allergies; jl7 - Home Meds: :43 Metformin Oral [Active]; BP med [Active]; jl7 - PMHx: 09:43 Diabetes - NIDDM; Hypertension; Seizures; jl7 - PSHx: 09:43 foot surgery; jl7 - Immunization history:: Adult Immunizations unknown. - Social history:: Smoking status: Patient/guardian denies using tobacco. - Ebola Screening: : No symptoms or risks identified at this time. ROS: 10:15 Constitutional: Negative for fever, chills, and weight loss, Eyes: Negative for injury, jr8 pain, redness, and discharge, Neck: Negative for injury, pain, and swelling, Cardiovascular: Negative for chest pain, palpitations, and edema, Respiratory: Negative for shortness of breath, cough, wheezing, and pleuritic chest pain, Abdomen/GI: Negative for abdominal pain, nausea, vomiting, diarrhea, and constipation, MS/Extremity: Negative for injury and deformity, Neuro: Negative for headache, weakness, numbness, tingling, and seizure. 10:15 ENT: Positive for dental pain. Exam: 10:16 Constitutional: This is a well developed, well nourished patient who is awake, alert, jr8 and in no acute distress. Head/Face: Normocephalic, atraumatic. Eyes: Pupils equal round and reactive to light, extra-ocular motions intact. Lids and lashes normal. Conjunctiva and sclera are non-icteric and not injected. Cornea within normal limits. Periorbital areas with no swelling, redness, or edema. Neck: Trachea midline, no thyromegaly or masses palpated, and no cervical lymphadenopathy. Supple, full range of motion without nuchal rigidity, or vertebral point tenderness. No Meningismus. Chest/axilla: Normal chest wall appearance and motion. Nontender with no deformity. No lesions are appreciated. Cardiovascular: Regular rate and rhythm with a normal S1 and S2. No gallops, murmurs, or rubs. Normal PMI, no JVD. No pulse deficits. Respiratory: Lungs have equal breath sounds bilaterally, clear to auscultation and percussion. No rales, rhonchi or wheezes noted. No increased work of breathing, no retractions or nasal flaring. Abdomen/GI: Soft, non-tender, with normal bowel sounds. No distension or tympany. No guarding or rebound. No evidence of tenderness throughout. MS/ Extremity: Pulses equal, no cyanosis. Neurovascular intact. Full, normal range of motion. Neuro: Awake and alert, GCS 15, oriented to person, place, time, and situation. Cranial nerves II-XII grossly intact. Motor strength 5/5 in all extremities. Sensory grossly intact. Cerebellar exam normal. Normal gait. 10:16 ENT: Dental exam: abscess, is not appreciated, cellulitis, is not appreciated, dental caries, that is mild, gum swelling, not appreciated. Vital Signs: 09:43 BP 123 / 83; Pulse 75; Resp 16 S; Temp 98.2(O); Pulse Ox 98% on R/A; Weight 129.27 kg jl7 (R); Height 6 ft. 1 in. (185.42 cm) (R); Pain 6/10; 10:24 BP 110 / 80; Pulse 74; Resp 16 S; Pulse Ox 100% on R/A; jl7 09:43 Body Mass Index 37.60 (129.27 kg, 185.42 cm) jl7 MDM: 09:39 Patient medically screened. robert 10:12 Data reviewed: vital signs, nurses notes. Data interpreted: Pulse oximetry: on room air jr8 is 98 %. Interpretation: normal. Counseling: I had a detailed discussion with the patient and/or guardian regarding: the historical points, exam findings, and any diagnostic results supporting the discharge/admit diagnosis. ED course: Pt to see dentist, given info for dental school. Will be placed on amoxicillin and anti-inflammatories. . Administered Medications: No medications were administered Disposition: 08/01 06:48 Co-signature as Attending Physician, Andre Shelley MD I agree with the assessment and [facility] plan of care. Disposition: 07/31/19 10:13 Discharged to Home. Impression: Dental caries. - Condition is Stable. - Discharge Instructions: Dental Caries, Adult. - Prescriptions for Amoxicillin 875 mg Oral Tablet - take 1 tablet by ORAL route every 12 hours for 7 days; 14 tablet. Ibuprofen 600 mg Oral Tablet - take 1 tablet by ORAL route every 6 hours As needed take with food; 30 tablet. - Medication Reconciliation Form, Thank You Letter, Antibiotic Education, Work release form form. - Follow up: Private Physician; When: As needed; Reason: Recheck today's complaints, Re-evaluation by your physician. - Problem is new. - Symptoms are unchanged. Signatures: Andre Shelley MD MD cha Roszak, Josh, PA PA jr8 Chantel Salazar RN RN jl7 Corrections: (The following items were deleted from the chart) 07/31 10:25 10:13 07/31/2019 10:13 Discharged to Home. Impression: Dental caries. Condition is jl7 Stable. Forms are Medication Reconciliation Form, Thank You Letter, Antibiotic Education, Prescription Opioid Use. Follow up: Private Physician; When: As needed; Reason: Recheck today's complaints, Re-evaluation by your physician. Problem is new. Symptoms are unchanged. jr8
[2019-07-31 10:30] VITALS: TEMP 98.2
[2019-07-31 10:31] VITALS: BP 110/80; O2SAT 100
== END 2019-07-31 10:25 | disposition home or self-care (01) ==
LOC: ER 09:29
DX: K02.9 Dental caries, unspecified (principal); E11.9 Type 2 diabetes mellitus without complications
CPT/HCPCS: 99283

== ENCOUNTER 2019-10-29 16:57 | Emergency (ER) | payer SELFPAY ==
--- NOTE | 2019-10-29 17:48 | ER ---
Nurse's Notes [facility] Name: Enriqueta Hearn Age: 24 yrs Sex: Male : 1995 Arrival Date: 10/29/2019 Time: 17:01 Bed 12 Private MD: None, None Diagnosis: Dental caries Presentation: 10/29 17:16 Presenting complaint: Patient states: pain to left upper molar that began yesterday. aa5 Transition of care: patient was not received from another setting of care. Onset of symptoms was October 2019. Risk Assessment: Do you want to hurt yourself or someone else? Patient reports no desire to harm self or others. Initial Sepsis Screen: Does the patient meet any 2 criteria? No. Patient's initial sepsis screen is negative. Does the patient have a suspected source of infection? No. Patient's initial sepsis screen is negative. Care prior to arrival: None. 17:16 Acuity: HARESH 5 aa5 17:16 Method Of Arrival: Ambulatory aa5 Historical: - Allergies: 17:17 No Known Allergies; aa5 - PMHx: 17:17 Diabetes - NIDDM; Hypertension; Seizures; aa5 - PSHx: 17:17 foot surgery; aa5 - Immunization history:: Adult Immunizations up to date. - Social history:: Smoking status: Patient/guardian denies using tobacco. - Ebola Screening: : No symptoms or risks identified at this time. Screenin:20 Abuse screen: Denies threats or abuse. Nutritional screening: No deficits noted. aa5 Tuberculosis screening: No symptoms or risk factors identified. Fall Risk None identified. Assessment: 17:20 General: Appears comfortable, Behavior is calm, cooperative. Pain: Complains of pain in aa5 upper left second molar (#15). Neuro: Level of Consciousness is awake, alert, obeys commands, Oriented to person, place, time, situation. Cardiovascular: Patient's skin is warm and dry. Respiratory: Airway is patent Respiratory effort is even, unlabored, Respiratory pattern is regular, symmetrical. GI: No signs and/or symptoms were reported involving the gastrointestinal system. : No signs and/or symptoms were reported regarding the genitourinary system. EENT: Reports pain in upper left second molar (#15). Derm: Skin is dry, Skin is normal, Skin temperature is warm. Musculoskeletal: Range of motion: intact in all extremities. Vital Signs: 17:17 BP 122 / 78; Pulse 72; Resp 16 S; Temp 98.0(TE); Pulse Ox 100% on R/A; Weight 117.93 kg aa5 (R); Height 6 ft. 1 in. (185.42 cm) (R); Pain 6/10; 17:17 Body Mass Index 34.30 (117.93 kg, 185.42 cm) aa5 ED Course: 17:01 Patient arrived in ED. mr 17:01 None, None is Private Physician. mr 17:17 Triage completed. aa5 17:17 Arm band placed on. aa5 17:17 Patient has correct armband on for positive identification. aa5 17:18 [facility] 17:18 Cosmo Khan MD is Attending Physician. [facility] 17:52 No provider procedures requiring assistance completed. Patient did not have IV access aa5 during this emergency room visit. Administered Medications: No medications were administered Outcome: 17:47 Discharge ordered by MD. [facility] 17:52 Discharged to home ambulatory. aa5 17:52 Condition: stable 17:52 Discharge instructions given to patient, Instructed on discharge instructions, follow up and referral plans. medication usage, Demonstrated understanding of instructions, follow-up care, medications, Prescriptions given X 1. 17:53 Patient left the ED. iw Signatures: Oscar Rainey PA PA jmm Rivera, Mary Roxann Kaiser, RN CRIS Lynn Koroma RN RN aa5
--- NOTE | 2019-10-29 17:49 | EDPHYS ---
Physician Documentation [facility] Name: Enriqueta Hearn Age: 24 yrs Sex: Male : 1995 Arrival Date: 10/29/2019 Time: 17:01 Bed 12 Private MD: None, None ED Physician Cosmo Khan HPI: 10/29 17:41 This 24 yrs old Black Male presents to ER via Ambulatory with complaints of Toothache. jmm 17:41 The patient presents with pain. Onset: The symptoms/episode began/occurred gradually, 1 jmm month(s) ago. Duration: The symptoms are continuous. Modifying factors: The symptoms are alleviated by nothing, the symptoms are aggravated by chewing, cold fluids, food. Associated signs and symptoms: Pertinent negatives: chills, dysphagia, redness in area, swelling. The patient has experienced similar episodes in the past. Historical: - Allergies: 17:17 No Known Allergies; aa5 - PMHx: 17:17 Diabetes - NIDDM; Hypertension; Seizures; aa5 - PSHx: 17:17 foot surgery; aa5 - Immunization history:: Adult Immunizations up to date. - Social history:: Smoking status: Patient/guardian denies using tobacco. - Ebola Screening: : No symptoms or risks identified at this time. ROS: 17:41 Constitutional: Negative for fever, chills, and weight loss, Cardiovascular: Negative jmm for chest pain, palpitations, and edema, Respiratory: Negative for shortness of breath, cough, wheezing, and pleuritic chest pain. 17:41 ENT: Positive for dental pain. 17:41 All other systems are negative. Exam: 17:41 Constitutional: This is a well developed, well nourished patient who is awake, alert, jmm and in no acute distress. Head/Face: atraumatic. Eyes: EOMI, no conjunctival erythema appreciated 17:41 Neck: Trachea midline, Supple Chest/axilla: Normal chest wall appearance and motion. Cardiovascular: Regular rate and rhythm. No edema appreciated Respiratory: Normal respirations, no respiratory distress appreciated Abdomen/GI: Non distended, soft Back: Normal ROM Skin: General appearance color normal MS/ Extremity: Moves all extremities, no obvious deformities appreciated, no edema noted to the lower extremities Neuro: Awake and alert, normal gait Psych: Behavior is normal, Mood is normal, Patient is cooperative and pleasant 17:41 ENT: Dental exam: dental caries, that is moderate, specifically in the upper left second molar (#15). Vital Signs: 17:17 BP 122 / 78; Pulse 72; Resp 16 S; Temp 98.0(TE); Pulse Ox 100% on R/A; Weight 117.93 kg aa5 (R); Height 6 ft. 1 in. (185.42 cm) (R); Pain 6/10; 17:17 Body Mass Index 34.30 (117.93 kg, 185.42 cm) aa5 MDM: 17:40 Patient medically screened. [facility] 17:47 Data reviewed: vital signs, nurses notes. Counseling: I had a detailed discussion with mariah the patient and/or guardian regarding: the historical points, exam findings, and any diagnostic results supporting the discharge/admit diagnosis, the need for outpatient follow up, to return to the emergency department if symptoms worsen or persist or if there are any questions or concerns that arise at home. Administered Medications: No medications were administered Disposition: 10/30 06:44 Co-signature as Attending Physician, Cosmo Khan MD I agree with the assessment and tw4 plan of care. Disposition: 10/29/19 17:47 Discharged to Home. Impression: Dental caries. - Condition is Stable. - Discharge Instructions: Dental Pain. - Prescriptions for Amoxicillin 875 mg Oral Tablet - take 1 tablet by ORAL route every 12 hours for 10 days; 20 tablet. - Work release form, Medication Reconciliation Form, Thank You Letter, Antibiotic Education, Prescription Opioid Use form. - Follow up: Private Physician; When: 2 - 3 days; Reason: Recheck today's complaints, Continuance of care, Re-evaluation by your physician. Signatures: Oscar Rainey PA PA [facility] Roxann Kaiser RN RN Lynn Koroma RN RN aa5 Cosmo Khan MD MD tw4 Corrections: (The following items were deleted from the chart) 10/29 17:53 17:47 10/29/2019 17:47 Discharged to Home. Impression: Dental caries. Condition is iw Stable. Forms are Medication Reconciliation Form, Thank You Letter, Antibiotic Education, Prescription Opioid Use. Follow up: Private Physician; When: 2 - 3 days; Reason: Recheck today's complaints, Continuance of care, Re-evaluation by your physician. mariah
[2019-10-29 18:18] VITALS: BP 122/78; TEMP 98; O2SAT 100
== END 2019-10-29 17:53 | disposition home or self-care (01) ==
LOC: ER 16:57
DX: K02.9 Dental caries, unspecified (principal)
CPT/HCPCS: 99282

== ENCOUNTER 2019-11-17 18:42 | Emergency (ER) | payer SELFPAY ==
[2019-11-17] MEDS ORDERED: NA CHLORIDE 0.9% 1,000 ML ONE (19:52)
[2019-11-17 20:17] LABS: Absolute Lymphocytes (CBC) 3.2 K/uL (0.7-4.9); Basophils % 1.1 % (0-1.3); Hematocrit 44.5 % (39.6-49.0); Lymphocytes % 30.6 % (15.3-44.8); MPV 9.8 fL (7.6-11.3); RBC Red Blood Cell Count 5.04 M/uL (4.33-5.43)
[2019-11-17 20:35] LABS: ALT/SGPT 37 U/L (12-78); AST/SGOT 19 U/L (15-37); Albumin 3.6 g/dL (3.4-5.0); Alkaline Phosphatase 94 U/L (45-117); BUN Blood Urea Nitrogen 11 mg/dL (7-18); Bicarbonate 28 mmol/L (21-32); Bilirubin Direct < 0.1 mg/dL (0-0.2); Bilirubin Total 0.6 mg/dL (0.2-1.0); Glucose Level 325 mg/dL (74-106); Protein, Total 7.9 g/dL (6.4-8.2); Sodium Level 138 mmol/L (136-145)
--- NOTE | 2019-11-17 21:22 | ER ---
Nurse's Notes [facility] Name: Enriqueta Hearn Age: 24 yrs Sex: Male : 1995 Arrival Date: 11/17/2019 Time: 18:46 Bed 14 Private MD: Diagnosis: Hyperglycemia, unspecified Presentation: 11/17 19:28 Presenting complaint: Patient states: i have headache today, blurred vision 2 days ago. mg2 my BGL 2 days ago was above 300. Transition of care: patient was not received from another setting of care. Onset of symptoms was November 15, 2019. Risk Assessment: Do you want to hurt yourself or someone else? Patient reports no desire to harm self or others. Initial Sepsis Screen: Does the patient meet any 2 criteria? No. Patient's initial sepsis screen is negative. Does the patient have a suspected source of infection? No. Patient's initial sepsis screen is negative. Care prior to arrival: None. 19:28 Method Of Arrival: Ambulatory mg2 19:28 Acuity: HARESH 3 mg2 Historical: - Allergies: 19:31 No Known Allergies; mg2 - Home Meds: 19:31 Metformin Oral [Active]; mg2 - PMHx: 19:31 Diabetes - NIDDM; Hypertension; Seizures; mg2 - PSHx: 19:31 foor surgery; mg2 - Immunization history:: Flu vaccine is up to date. - Coronavirus screen:: The patient has NOT traveled to [place], [place], or [place] in the past 14 days. Proceed with normal triage process as indicated. The patient has NOT had contact with known/suspected case of Coronavirus? Proceed with normal triage procedures. - Social history:: Smoking status: Patient denies any tobacco usage or history of. Patient/guardian denies using alcohol, street drugs, IV drugs. - Ebola Screening: : No symptoms or risks identified at this time. Screenin:58 Abuse screen: Denies threats or abuse. Denies injuries from another. Nutritional mg2 screening: No deficits noted. Tuberculosis screening: No symptoms or risk factors identified. Fall Risk IV access (20 points). Assessment: 20:30 General: Appears in no apparent distress. comfortable, Behavior is calm, cooperative. mg2 Pain: Complains of pain in head-occipital. Neuro: Level of Consciousness is awake, alert, obeys commands, Oriented to person, place, time, situation, Reports blurred vision headache. Cardiovascular: No deficits noted. Respiratory: Airway is patent Respiratory effort is even, unlabored, Respiratory pattern is regular, symmetrical. GI: No signs and/or symptoms were reported involving the gastrointestinal system. : No signs and/or symptoms were reported regarding the genitourinary system. EENT: No signs and/or symptoms were reported regarding the EENT system. Derm: Skin is intact, is healthy with good turgor, Skin is pink, warm \T\ dry. normal. Musculoskeletal: Circulation, motion, and sensation intact. Capillary refill < 3 seconds. 21:00 Reassessment: Patient appears in no apparent distress at this time. Patient and/or mg2 family updated on plan of care and expected duration. Pain level reassessed. Patient is alert, oriented x 3, equal unlabored respirations, skin warm/dry/pink. Vital Signs: 19:29 BP 121 / 81; Pulse 83; Resp 18; Temp 98; Pulse Ox 100% on R/A; Weight 121.11 kg; Height mg2 6 ft. 1 in. (185.42 cm); Pain 6/10; 20:56 BP 119 / 76; Pulse 80; Resp 18; Temp 98; Pulse Ox 100% on R/A; mg2 19:29 Body Mass Index 35.23 (121.11 kg, 185.42 cm) mg2 ED Course: 18:46 Patient arrived in ED. ag5 19:28 Dario Del Angel, CRIS is Primary Nurse. mg2 19:29 Triage completed. mg2 19:32 Arm band placed on. mg2 19:35 Claus Corbin NP is PHCP. pm1 19:36 Augustin King MD is Attending Physician. pm1 19:50 Inserted saline lock: 20 gauge in right forearm, using aseptic technique. Blood mg2 collected. 20:59 Patient has correct armband on for positive identification. Door closed. Warm blanket mg2 given. 20:59 No provider procedures requiring assistance completed. mg2 21:37 IV discontinued, intact, bleeding controlled, No redness/swelling at site. Pressure mg2 dressing applied. Administered Medications: 19:50 Drug: NS 0.9% 1000 ml Route: IV; Rate: 1000 ml; Site: right forearm; mg2 20:56 Follow up: Response: No adverse reaction; IV Status: Completed infusion; IV Intake: mg2 1000ml Intake: 20:56 IV: 1000ml; Total: 1000ml. mg2 Outcome: 21:21 Discharge ordered by . pm1 21:37 Discharged to home ambulatory, with family. mg2 21:37 Condition: stable 21:37 Discharge instructions given to patient, family, Instructed on discharge instructions, follow up and referral plans. Demonstrated understanding of instructions, follow-up care. 21:39 Patient left the ED. mg2 Signatures: Claus Corbin NP ORGANIZATIONAL DEVELOPMENT CONSULTANT pm1 Dario Del Angel RN RN mg2 Israel Lea ag5
--- NOTE | 2019-11-17 21:22 | EDPHYS ---
Physician Documentation [facility] Name: Enriqueta Hearn Age: 24 yrs Sex: Male : 1995 Arrival Date: 11/17/2019 Time: 18:46 Bed 14 Private MD: ED Physician Augustin King HPI: 11/17 19:45 This 24 yrs old Black Male presents to ER via Ambulatory with complaints of High Blood pm1 Pressure, High Blood Sugar. 19:45 The patient has elevated blood pressure and discovered this at home. Onset: The pm1 symptoms/episode began/occurred 2 day(s) ago. Modifying factors:. Associated signs and symptoms: Pertinent positives: headache, hyperglycemia and blurred vision, Pertinent negatives: chest pain, dizziness, nausea, vomiting. Severity of symptoms: in the emergency department the blood pressure is improved. The patient has not experienced similar symptoms in the past. The patient has not recently seen a physician. Patient reports high blood sugar 2 days ago with blurred vision. Patient does not check his sugars regularly. Presenting today with complaints of headache and high blood pressure that have improved. Patient currently does not have any blurry vision. Resolved 2 days ago. Historical: - Allergies: 19:31 No Known Allergies; mg2 - Home Meds: 19:31 Metformin Oral [Active]; mg2 - PMHx: 19:31 Diabetes - NIDDM; Hypertension; Seizures; mg2 - PSHx: 19:31 foor surgery; mg2 - Immunization history:: Flu vaccine is up to date. - Coronavirus screen:: The patient has NOT traveled to [place], [place], or [place] in the past 14 days. Proceed with normal triage process as indicated. The patient has NOT had contact with known/suspected case of Coronavirus? Proceed with normal triage procedures. - Social history:: Smoking status: Patient denies any tobacco usage or history of. Patient/guardian denies using alcohol, street drugs, IV drugs. - Ebola Screening: : No symptoms or risks identified at this time. ROS: 19:45 Constitutional: Negative for fever, chills, and weight loss. pm1 19:45 ENT: Negative for injury, pain, and discharge, Neck: Negative for injury, pain, and swelling, Cardiovascular: Negative for chest pain, palpitations, and edema, Respiratory: Negative for shortness of breath, cough, wheezing, and pleuritic chest pain, Abdomen/GI: Negative for abdominal pain, nausea, vomiting, diarrhea, and constipation, Back: Negative for injury and pain, MS/Extremity: Negative for injury and deformity, Skin: Negative for injury, rash, and discoloration. 19:45 Eyes: Positive for blurry vision, resolved, Negative for itching, pain. 19:45 Neuro: Positive for headache, Negative for altered mental status, dizziness, numbness, tingling, weakness. Exam: 19:45 Constitutional: This is a well developed, well nourished patient who is awake, alert, pm1 and in no acute distress. Head/Face: Normocephalic, atraumatic. Eyes: Pupils equal round and reactive to light, extra-ocular motions intact. Lids and lashes normal. Conjunctiva and sclera are non-icteric and not injected. Cornea within normal limits. Periorbital areas with no swelling, redness, or edema. ENT: Nares patent. No nasal discharge, no septal abnormalities noted. Tympanic membranes are normal and external auditory canals are clear. Oropharynx with no redness, swelling, or masses, exudates, or evidence of obstruction, uvula midline. Mucous membranes moist. Neck: Trachea midline, no thyromegaly or masses palpated, and no cervical lymphadenopathy. Supple, full range of motion without nuchal rigidity, or vertebral point tenderness. No Meningismus. Chest/axilla: Normal chest wall appearance and motion. Nontender with no deformity. No lesions are appreciated. Cardiovascular: Regular rate and rhythm with a normal S1 and S2. No gallops, murmurs, or rubs. Normal PMI, no JVD. No pulse deficits. Respiratory: Lungs have equal breath sounds bilaterally, clear to auscultation and percussion. No rales, rhonchi or wheezes noted. No increased work of breathing, no retractions or nasal flaring. 19:45 Back: No spinal tenderness. No costovertebral tenderness. Full range of motion. Skin: Warm, dry with normal turgor. Normal color with no rashes, no lesions, and no evidence of cellulitis. MS/ Extremity: Pulses equal, no cyanosis. Neurovascular intact. Full, normal range of motion. 19:45 Abdomen/GI: Inspection: obese Bowel sounds: normal, Palpation: abdomen is soft and non-tender, in all quadrants. 19:45 Neuro: Orientation: is normal, Mentation: is normal, Motor: is normal, moves all fours. Vital Signs: 19:29 BP 121 / 81; Pulse 83; Resp 18; Temp 98; Pulse Ox 100% on R/A; Weight 121.11 kg; Height mg2 6 ft. 1 in. (185.42 cm); Pain 6/10; 20:56 BP 119 / 76; Pulse 80; Resp 18; Temp 98; Pulse Ox 100% on R/A; mg2 19:29 Body Mass Index 35.23 (121.11 kg, 185.42 cm) mg2 MDM: 19:54 Patient medically screened. pm1 21:20 Data reviewed: vital signs. Data interpreted: Pulse oximetry: on room air is 100 %. pm1 Interpretation: normal. Counseling: I had a detailed discussion with the patient and/or guardian regarding: the historical points, exam findings, and any diagnostic results supporting the discharge/admit diagnosis, lab results, the need for outpatient follow up, a family practitioner, diabetes education and management, to return to the emergency department if symptoms worsen or persist or if there are any questions or concerns that arise at home. 11/17 19:39 Order name: Basic Metabolic Panel; Complete Time: 20:38 pm1 11/17 19:39 Order name: CBC with Diff; Complete Time: 20:38 pm1 11/17 19:39 Order name: Hepatic Function; Complete Time: 20:38 pm1 11/17 19:49 Order name: Glucose, Ancillary Testing; Complete Time: 19:57 EDMS 11/17 21:31 Order name: Glucose, Ancillary Testing; Complete Time: 22:35 EDMS 11/17 19:39 Order name: IV Saline Lock; Complete Time: 19:50 pm1 11/17 19:39 Order name: Labs collected and sent; Complete Time: 19:50 pm1 11/17 21:19 Order name: Finger Stick; Complete Time: 21:20 pm1 Administered Medications: 19:50 Drug: NS 0.9% 1000 ml Route: IV; Rate: 1000 ml; Site: right forearm; mg2 20:56 Follow up: Response: No adverse reaction; IV Status: Completed infusion; IV Intake: mg2 1000ml Disposition: 11/18 02:44 Co-signature as Attending Physician, Augustin King MD. rn Disposition: 11/17/19 21:21 Discharged to Home. Impression: Hyperglycemia, unspecified. - Condition is Stable. - Discharge Instructions: Hyperglycemia, Blood Glucose Monitoring, Adult. - Medication Reconciliation Form, Thank You Letter, Antibiotic Education, Prescription Opioid Use, Work release form form. - Follow up: Emergency Department; When: As needed; Reason: Worsening of condition. Follow up: Private Physician; When: 2 - 3 days; Reason: Recheck today's complaints, Continuance of care, Re-evaluation by your physician. - Problem is new. - Symptoms have improved. Signatures: Dispatcher [employer] EDMS Augustin King MD MD rn Claus Corbin, GRAPHIC ILLUSTRATOR GRAPHIC ILLUSTRATOR pm1 Dario Del Angel RN RN mg2 Corrections: (The following items were deleted from the chart) 11/17 21:39 21:21 11/17/2019 21:21 Discharged to Home. Impression: Hyperglycemia, unspecified. mg2 Condition is Stable. Forms are Medication Reconciliation Form, Thank You Letter, Antibiotic Education, Prescription Opioid Use. Follow up: Emergency Department; When: As needed; Reason: Worsening of condition. Follow up: Private Physician; When: 2 - 3 days; Reason: Recheck today's complaints, Continuance of care, Re-evaluation by your physician. Problem is new. Symptoms have improved. pm1
[2019-11-17 21:50] VITALS: TEMP 98; O2SAT 100
[2019-11-17 21:52] VITALS: BP 119/76
== END 2019-11-17 21:39 | disposition home or self-care (01) ==
LOC: ER 18:42
DX: E11.65 Type 2 diabetes mellitus with hyperglycemia (principal)
CPT/HCPCS: 36415; 80048; 80076; 82947; 85025; 96360; 99283; J7030

== ENCOUNTER 2019-12-15 21:44 | Emergency (ER) | payer SELFPAY ==
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
== END 2019-12-15 23:14 | disposition home or self-care (01) ==
LOC: ER 21:44
DX: Z04.1 Encounter for examination and observation following transport accident (principal); V59.40XA Driver of pick-up truck or van injured in collision with unspecified motor vehicles in traffic accident, initial encounter
CPT/HCPCS: 99281

== ENCOUNTER 2019-12-30 22:00 | Emergency (ER) | payer SELFPAY ==
[2019-12-30] MEDS ORDERED: ASPIRIN 81 MG CHEWABLE TABLET ONE (23:48)
[2019-12-30 23:53] LABS: Absolute Lymphocytes (CBC) 3.6 K/uL (0.7-4.9); Basophils % 0.7 % (0-1.3); Lymphocytes % 42.8 % (15.3-44.8); MPV 9.9 fL (7.6-11.3); RBC Red Blood Cell Count 4.89 M/uL (4.33-5.43)
[2019-12-30 23:56] LABS: Protime INR 1.04
[2019-12-31 00:39] LABS: Barbiturates NEGATIVE (NEGATIVE); Benzodiazepines NEGATIVE (NEGATIVE); Cocaine NEGATIVE (NEGATIVE); METHAMPHETAM NEGATIVE (NEGATIVE); Methadone NEGATIVE (NEGATIVE); Opiates NEGATIVE (NEGATIVE); Phencyclidine NEGATIVE (NEGATIVE); THC Cannibis NEGATIVE (NEGATIVE)
[2019-12-31 00:49] LABS: Urine Blood NEGATIVE (NEG); Urine Glucose 2+ (NEG); Urine Protein NEGATIVE (NEG); Urine pH 5.5 (5.0-7.0)
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
--- NOTE | 2019-12-31 01:27 | EDPHYS ---
Physician Documentation [facility] Name: Enriqueta Hearn Age: 24 yrs Sex: Male : 1995 Arrival Date: 12/30/2019 Time: 22:07 Bed 6 Private MD: ED Physician Cosmo Khan HPI: 12/29 23:10 This 24 yrs old Black Male presents to ER via Ambulatory with complaints of Chest Pain. snw 23:10 Onset: The symptoms/episode began/occurred suddenly, this am. Associated signs and snw symptoms: Pertinent negatives: abdominal pain, congestion, cough, fever, vomiting, diaphoresis. The patient has experienced similar episodes in the past, multiple times, and the symptoms today are exactly the same, to when the patient was apparently diagnosed with anxiety attack. The patient has not recently seen a physician. Historical: - Allergies: 22:39 No Known Allergies; bb - Home Meds: 22:39 None [Active]; bb - PMHx: 22:39 Diabetes - NIDDM; Hypertension; Seizures; bb - PSHx: 22:39 None; bb - Immunization history:: Adult Immunizations up to date. - Social history:: Smoking status: Patient denies any tobacco usage or history of. ROS: 23:09 Constitutional: Negative for fever, chills, and weight loss, Eyes: Negative for injury, snw pain, redness, and discharge, ENT: Negative for injury, pain, and discharge, Neck: Negative for injury, pain, and swelling, Respiratory: Negative for shortness of breath, cough, wheezing, and pleuritic chest pain, Abdomen/GI: Negative for abdominal pain, nausea, vomiting, diarrhea, and constipation, Back: Negative for injury and pain, : Negative for injury, bleeding, discharge, and swelling, MS/Extremity: Negative for injury and deformity, Skin: Negative for injury, rash, and discoloration, Neuro: Negative for headache, weakness, numbness, tingling, and seizure. 23:09 Cardiovascular: Positive for chest pain, Negative for edema, orthopnea, paroxysmal nocturnal dyspnea, acute changes. 23:09 Psych: Positive for anxiety, pt thinks he just had anxiety. Has had similar s/s x multiple episodes, none in about a year so pt was frightened.. Exam: 23:09 Constitutional: This is a well developed, well nourished patient who is awake, alert, snw and in no acute distress. Head/Face: Normocephalic, atraumatic. Eyes: Pupils equal round and reactive to light, extra-ocular motions intact. Lids and lashes normal. Conjunctiva and sclera are non-icteric and not injected. Cornea within normal limits. Periorbital areas with no swelling, redness, or edema. ENT: Nares patent. No nasal discharge, no septal abnormalities noted. Tympanic membranes are normal and external auditory canals are clear. Oropharynx with no redness, swelling, or masses, exudates, or evidence of obstruction, uvula midline. Mucous membranes moist. Neck: Trachea midline, no thyromegaly or masses palpated, and no cervical lymphadenopathy. Supple, full range of motion without nuchal rigidity, or vertebral point tenderness. No Meningismus. Chest/axilla: Normal chest wall appearance and motion. Nontender with no deformity. No lesions are appreciated. Cardiovascular: Regular rate and rhythm with a normal S1 and S2. No gallops, murmurs, or rubs. Normal PMI, no JVD. No pulse deficits. Respiratory: Lungs have equal breath sounds bilaterally, clear to auscultation and percussion. No rales, rhonchi or wheezes noted. No increased work of breathing, no retractions or nasal flaring. Abdomen/GI: Soft, non-tender, with normal bowel sounds. No distension or tympany. No guarding or rebound. No evidence of tenderness throughout. Back: No spinal tenderness. No costovertebral tenderness. Full range of motion. Skin: Warm, dry with normal turgor. Normal color with no rashes, no lesions, and no evidence of cellulitis. MS/ Extremity: Pulses equal, no cyanosis. Neurovascular intact. Full, normal range of motion. Neuro: Awake and alert, GCS 15, oriented to person, place, time, and situation. Cranial nerves II-XII grossly intact. Motor strength 5/5 in all extremities. Sensory grossly intact. Cerebellar exam normal. Normal gait. Psych: Awake, alert, with orientation to person, place and time. Behavior, mood, and affect are within normal limits. 23:20 ECG was reviewed by the Attending Physician. snw Vital Signs: 22:36 BP 121 / 78; Pulse 83; Resp 16 S; Temp 98.4(O); Pulse Ox 99% on R/A; Weight 125.19 kg bb (R); Height 6 ft. 1 in. (185.42 cm) (R); Pain 05/01; 22:50 BP 122 / 77; Pulse 66; Resp 17; Temp 97.7; Pulse Ox 100% on R/A; sg 12/30 00:00 BP 126 / 72; Pulse 68; Resp 17; Pulse Ox 100% on R/A; sg 01:43 BP 121 / 78; Pulse 68; Resp 18; Pulse Ox 100% on R/A; tl2 12/29 22:36 Body Mass Index 36.41 (125.19 kg, 185.42 cm) bb MDM: 12/29 23:04 Patient medically screened. snw 23:23 Data reviewed: vital signs, nurses notes. Data interpreted: Pulse oximetry: on room air snw is 99 %. Interpretation: normal. Counseling: I had a detailed discussion with the patient and/or guardian regarding: the historical points, exam findings, and any diagnostic results supporting the discharge/admit diagnosis. 12/30 01:09 Response to treatment: pt remains in no distress, lab has requested repeated lab draws snw x 2, pt without complaint, VSS. Last EKG at this facility very similar to today's EKG morphology. 12/29 23:24 Order name: CBC with Diff; Complete Time: 23:59 snw 12/29 23:24 Order name: PT-INR; Complete Time: 23:59 snw 12/29 22:41 Order name: Chest Pa And Lat (2 Views) XRAY snw 12/29 23:08 Order name: EKG; Complete Time: 23:09 snw 12/29 23:08 Order name: EKG - Nurse/Tech; Complete Time: 23:12 snw 12/29 23:24 Order name: UDS; Complete Time: 00:41 snw 12/30 00:18 Order name: Urine Dipstick--Ancillary (enter results); Complete Time: 00:54 mt 12/30 01:37 Order name: Troponin (Emerg Dept Use Only) EDMS 12/29 23:24 Order name: Cardiac monitoring; Complete Time: 23:26 snw 12/29 23:24 Order name: IV Saline Lock; Complete Time: 23:38 snw 12/29 23:24 Order name: Labs collected and sent; Complete Time: 23:38 snw 12/29 23:24 Order name: O2 Per Protocol; Complete Time: 23:26 snw 12/29 23:24 Order name: O2 Sat Monitoring; Complete Time: 23:27 snw Administered Medications: 12/29 23:45 Drug: Aspirin Chewable Tablet 324 mg Route: PO; Disposition: 12/30 07:04 Co-signature as Attending Physician, Cosmo Khan MD I agree with the assessment and tw4 plan of care. Disposition: 12/31/19 01:26 Discharged to Home. Impression: Chest pain, unspecified, Anxiety disorder, unspecified. - Condition is Stable. - Discharge Instructions: Panic Attacks, Nonspecific Chest Pain, Aspirin and Your Heart, Generalized Anxiety Disorder, Fat and Cholesterol Restricted Diet, [id number]. - Prescriptions for Protonix 40 mg Oral Tablet - take 1 tablet by ORAL route once daily; 30 tablet. - Work release form, Medication Reconciliation Form, Thank You Letter, Antibiotic Education, Prescription Opioid Use form. - Follow up: Emergency Department; When: As needed; Reason: Worsening of condition. Follow up: Private Physician; When: 1 - 2 days; Reason: Recheck today's complaints, Continuance of care, Re-evaluation by your physician. Signatures: Dispatcher [employer] [facility] Bridger Pulliam RN RN sg Alexia Vincent, HAND BUFFER-C HAND BUFFER-Csnw Marya Nguyen RN RN bb Knox, Taylor, RN RN tl2 Cosmo Khan MD MD tw4 Corrections: (The following items were deleted from the chart) 01:37 12/29 23:25 TROPONIN (EMERG DEPT USE ONLY)+[id number].[email or web address].BRZ ordered. [facility] 12/30 01:47 01:26 12/31/2019 01:26 Discharged to Home. Impression: Chest pain, unspecified; Anxiety tl2 disorder, unspecified. Condition is Stable. Forms are Medication Reconciliation Form, Thank You Letter, Antibiotic Education, Prescription Opioid Use. Follow up: Emergency Department; When: As needed; Reason: Worsening of condition. Follow up: Private Physician; When: 1 - 2 days; Reason: Recheck today's complaints, Continuance of care, Re-evaluation by your physician. snw
[2019-12-31 02:25] VITALS: BP 121/78; TEMP 98.4
[2019-12-31 02:27] VITALS: O2SAT 100
--- NOTE | 2019-12-31 07:59 | RAD REPORT ---
EXAM DESCRIPTION: Jesus Matthews (2 Views)12/30/2019 10:52 pm CLINICAL HISTORY: Cough COMPARISON: 2018 FINDINGS: The lungs appear clear of acute infiltrate. The heart is normal size IMPRESSION: No acute abnormalities displayed
--- NOTE | 2019-12-31 12:13 | EKG ---
Test Date: 2019-12-30 Test Time: 22:21:08 Telemarketer Supervisor: GITA MEASUREMENT RESULTS: Intervals: Rate: 73 NH: 142 QRSD: 112 QT: 398 QTc: 438 Morton: P: 41 NH: 142 QRS: 67 T: 10 INTERPRETIVE STATEMENTS: Normal sinus rhythm Incomplete right bundle branch block early repolarization Abnormal ECG Compared to ECG 02/26/2018 02:58:57 [facility] Electronically Signed On 12-31-19 12:13:17 CDT by Balbir Wilkinson
== END 2019-12-31 01:47 | disposition home or self-care (01) ==
LOC: ER 22:00
DX: R07.9 Chest pain, unspecified (principal); F41.9 Anxiety disorder, unspecified
CPT/HCPCS: 71046; 80307; 81003; 84484; 85025; 85610; 93005; 99284

== ENCOUNTER 2020-01-28 14:33 | Emergency (ER) | payer SELFPAY ==
[2020-01-28 16:39] VITALS: BP 139/84; TEMP 98.4; O2SAT 97
== END 2020-01-28 16:33 | disposition left against medical advice (07) ==
LOC: ER 14:33
DX: E11.65 Type 2 diabetes mellitus with hyperglycemia (principal); I10 Essential (primary) hypertension
CPT/HCPCS: 81003; 82947; 93005; 99281

== ENCOUNTER 2020-10-16 12:27 | Emergency (ER) | payer SELFPAY ==
--- OUTSIDE RECORDS SUMMARY | 2020-10-16 12:28 | XMS REPORT | Continuity of Care Document ---
:1995 Author Organization [facility] t Address [address] [place] [address] Care Team Providers Name Role Phone Aviva Solomon Attending Clinician Problems This patient has no known problems. Allergies, Adverse Reactions, Alerts This patient has no known allergies or adverse reactions. Medications This patient has no known medications. Procedures This patient has no known procedures. Encounters Start End Encounter Admission Attending Care Care Encounter Source Date/Time Date/Time Type Type Clinicians Facility Department ID 2019-05-30 2019-05-30 Emergency Azalea Johnson [facility] [id number] 16:02:51 17:01:00 [facility] Wing [id number] [place] [id number] [place] [phone] [id number] Results This patient has no known results.
[2020-10-16] MEDS ORDERED: FLUORESCEIN SODIUM 1 MG/WRAP ONE (13:57)
[2020-10-16] MEDS ORDERED: TETRACAINE HCL 0.5% 4ML OPTH ONE (13:57)
--- NOTE | 2020-10-16 14:12 | ER ---
Nurse's Notes [facility] Name: Enriqueta Hearn Age: 25 yrs Sex: Male : 1995 Arrival Date: 10/16/2020 Time: 12:27 Bed 20 Private MD: Diagnosis: Injury of conjunctiva and corneal abrasion without foreign body, left eye Presentation: 10/16 13:20 Chief complaint: Patient states: Left eye irritation for 1 day. Had migraine yesterday ll1 that resolved today. No fever. Coronavirus screen: Client denies travel out of the [place] in the last 14 days. At this time, the client does not indicate any symptoms associated with coronavirus-19. Ebola Screen: Patient denies travel to an Ebola-affected area in the 21 days before illness onset. Initial Sepsis Screen: Does the patient meet any 2 criteria? No. Patient's initial sepsis screen is negative. Does the patient have a suspected source of infection? Yes: Other: eye pain. Risk Assessment: Do you want to hurt yourself or someone else? Patient reports no desire to harm self or others. Onset of symptoms was October 16, 2020. 13:20 Method Of Arrival: Ambulatory ll1 13:20 Acuity: HARESH 4 ll1 Historical: - Allergies: 13:20 No Known Allergies; ll1 - PMHx: 13:20 Diabetes - NIDDM; Hypertension; Seizures; ll1 - PSHx: 13:20 None; ll1 - Immunization history:: Flu vaccine is not up to date. - Social history:: Smoking status: Patient denies any tobacco usage or history of. Screenin:30 Abuse screen: Denies threats or abuse. Nutritional screening: No deficits noted. aa5 Tuberculosis screening: No symptoms or risk factors identified. Fall Risk None identified. Assessment: 13:30 General: Appears comfortable, Behavior is calm, cooperative. Pain: Denies pain. Neuro: aa5 Level of Consciousness is awake, alert, obeys commands, Oriented to person, place, time, situation. Cardiovascular: Patient's skin is warm and dry. Respiratory: Airway is patent Respiratory effort is even, unlabored, Respiratory pattern is regular, symmetrical. GI: No signs and/or symptoms were reported involving the gastrointestinal system. : No signs and/or symptoms were reported regarding the genitourinary system. EENT: Reports irritation to left eye . Derm: Skin is dry, Skin is normal, Skin temperature is warm. Musculoskeletal: Range of motion: intact in all extremities. 14:20 Reassessment: Awaiting Ofloxacin from the pharmacy. . aa5 14:20 Neuro: Level of Consciousness is awake, alert, obeys commands, Oriented to person, aa5 place, time, situation. Respiratory: Airway is patent Respiratory effort is even, unlabored, Respiratory pattern is regular, symmetrical. Derm: Skin is dry, Skin is normal, Skin temperature is warm. Vital Signs: 13:20 BP 141 / 97; Pulse 82; Resp 17; Temp 98.3; Pulse Ox 100% ; Weight 129.27 kg; Height 6 ll1 ft. 1 in. (185.42 cm); Pain 9/10; 13:20 Body Mass Index 37.60 (129.27 kg, 185.42 cm) ll1 Visual Acuity: 13:49 Left Eye Visual acuity 20/50, ; Right Eye Visual acuity 20/20, ; Both Eyes Visual ll1 acuity 20/20; Without Lenses; ED Course: 12:27 Patient arrived in ED. ag5 13:19 Arm band placed on Patient placed in an exam room, on a stretcher. ll1 13:22 Triage completed. ll1 13:23 Lynn Koroma, RN is Primary Nurse. aa5 13:30 Patient has correct armband on for positive identification. Bed in low position. Call aa5 light in reach. Adult w/ patient. 13:32 Claus Corbin NP is PHCP. pm1 13:32 Varun Jordan MD is Attending Physician. pm1 14:05 Assist provider with eye exam of left eye. using fluorescein stain, Performed by aa5 Claus Corbin NP Patient tolerated well. 14:35 Patient did not have IV access during this emergency room visit. aa5 Administered Medications: 14:00 Drug: Tetracaine Drops 0.5 % 1 drops {Note: administered by HOME SCHOOL LIAISON OFFICER.} Route: Ophthalmic; aa5 Site: left eye; 14:15 CANCELLED (Physician Discretion): Tobramycin Drops (0.3 %) 2 drops Ophthalmic once pm1 14:20 Not Given (Physician Discretion): Vigamox 0.5 % 1 drops Ophthalmic once pm1 14:30 Drug: [place] 5 mg-325 mg 1 tabs Route: PO; aa5 14:35 Follow up: Response: No adverse reaction aa5 14:35 Drug: Ofloxacin Drops 0.3 % 1 drops Route: Ophthalmic; Site: left eye; aa5 Outcome: 14:12 Discharge ordered by . pm1 14:40 Discharged to home ambulatory, with family. aa5 14:40 Condition: stable 14:40 Discharge instructions given to patient, Instructed on discharge instructions, follow up and referral plans. medication usage, Demonstrated understanding of instructions, follow-up care, medications, Prescriptions given X 2. 14:42 Patient left the ED. aa5 Signatures: Lynn Koroma, RN RN aa5 Claus Corbin NP HOME SCHOOL LIAISON OFFICER pm1 Israel Lea ag5 Nishi Mendiola, RN RN ll1 Corrections: (The following items were deleted from the chart) 14:11 14:00 Assist provider with eye exam of left eye. using fluorescein stain, Performed by aa5 Claus Corbin NP Patient tolerated well. aa5 19:31 14:48 Patient left the ED. aa5 aa5
--- NOTE | 2020-10-16 14:13 | EDPHYS ---
Physician Documentation [facility] Name: Enriqueta Hearn Age: 25 yrs Sex: Male : 1995 Arrival Date: 10/16/2020 Time: 12:27 Bed 20 Private MD: ED Physician Varun Jordan HPI: 10/16 13:40 This 25 yrs old Black Male presents to ER via Ambulatory with complaints of Left Eye pm1 Swelling. 13:40 The patient is experiencing pain, redness, Swelling eyelids, to the left eye, caused by pm1 rubbing. Onset: The symptoms/episode began/occurred yesterday. Duration: the symptoms are continuous. Aggravated by nothing. Alleviated by closing eye. Associated signs and symptoms: Pertinent negatives: inability to see. Patient does not utilize any form of vision correction. Severity of symptoms: in the emergency department the symptoms are worse. The patient has not experienced similar symptoms in the past. Patient with left sided migraine yesterday. He was rubbing his left eye yesterday when he had the left sided migraine. His migraine resolved and then his eye pain started. Historical: - Allergies: 13:20 No Known Allergies; ll1 - PMHx: 13:20 Diabetes - NIDDM; Hypertension; Seizures; ll1 - PSHx: 13:20 None; ll1 - Immunization history:: Flu vaccine is not up to date. - Social history:: Smoking status: Patient denies any tobacco usage or history of. ROS: 14:11 Constitutional: Negative for fever, chills, and weight loss. pm1 14:11 Cardiovascular: Negative for chest pain, palpitations, and edema, Respiratory: Negative for shortness of breath, cough, wheezing, and pleuritic chest pain, Skin: Negative for injury, rash, and discoloration, Neuro: Negative for headache, weakness, numbness, tingling, and seizure. 14:11 Eyes: Positive for pain, tearing, Negative for discharge, foreign body sensation, vision loss. Exam: 14:11 Constitutional: This is a well developed, well nourished patient who is awake, alert, pm1 and in no acute distress. Head/Face: Normocephalic, atraumatic. 14:11 Skin: Warm, dry with normal turgor. Normal color with no rashes, no lesions, and no evidence of cellulitis. MS/ Extremity: Pulses equal, no cyanosis. Neurovascular intact. Full, normal range of motion. 14:11 Eyes: Periorbital structures: appear normal, Pupils: no acute changes, Extraocular movements: intact throughout, Conjunctiva: injected, Corneas: abrasion, that is small, at 12 o'clock, foreign body, is not appreciated, a fluorescein strip employed to appreciate the findings, Anterior chamber: no acute changes, Lids and lashes: appear normal. 14:11 Cardiovascular: Exam negative for acute changes, Rate: normal, Rhythm: regular, Pulses: no pulse deficits are appreciated. 14:11 Respiratory: Exam negative for acute changes, respiratory distress, shortness of breath. 14:11 Neuro: Exam negative for acute changes, Orientation: is normal, Mentation: is normal, Motor: is normal, moves all fours. Vital Signs: 13:20 BP 141 / 97; Pulse 82; Resp 17; Temp 98.3; Pulse Ox 100% ; Weight 129.27 kg; Height 6 ll1 ft. 1 in. (185.42 cm); Pain 9/10; 13:20 Body Mass Index 37.60 (129.27 kg, 185.42 cm) ll1 Visual Acuity: 13:49 Left Eye Visual acuity 20/50, ; Right Eye Visual acuity 20/20, ; Both Eyes Visual ll1 acuity 20/20; Without Lenses; MDM: 13:32 Patient medically screened. pm1 13:39 Data reviewed: vital signs. Data interpreted: Pulse oximetry: on room air is 100 %. pm1 Interpretation: normal. 14:11 Counseling: I had a detailed discussion with the patient and/or guardian regarding: the pm1 historical points, exam findings, and any diagnostic results supporting the discharge/admit diagnosis, the need for outpatient follow up, an opthalmologist, to return to the emergency department if symptoms worsen or persist or if there are any questions or concerns that arise at home. 10/16 13:38 Order name: Visual Acuity; Complete Time: 13:49 pm1 10/16 13:38 Order name: Eye Tray; Complete Time: 13:44 pm1 10/16 13:38 Order name: Fluoresene Opth strip; Complete Time: 13:44 pm1 Administered Medications: 14:00 Drug: Tetracaine Drops 0.5 % 1 drops {Note: administered by PUPPET MASTER.} Route: Ophthalmic; aa5 Site: left eye; 14:15 CANCELLED (Physician Discretion): Tobramycin Drops (0.3 %) 2 drops Ophthalmic once pm1 14:20 Not Given (Physician Discretion): Vigamox 0.5 % 1 drops Ophthalmic once pm1 14:30 Drug: [place] 5 mg-325 mg 1 tabs Route: PO; aa5 14:35 Follow up: Response: No adverse reaction aa5 14:35 Drug: Ofloxacin Drops 0.3 % 1 drops Route: Ophthalmic; Site: left eye; aa5 Disposition: 18:05 Co-signature as Attending Physician, Varun Jordan MD I agree with the assessment and kdr plan of care. Disposition: 10/16/20 14:12 Discharged to Home. Impression: Injury of conjunctiva and corneal abrasion without foreign body, left eye. - Condition is Stable. - Discharge Instructions: Corneal Abrasion. - Prescriptions for Tylenol- Codeine #3 300-30 mg Oral Tablet - take 2 tablets by ORAL route every 6 hours As needed; 20 tablet. ofloxacin 0.3 % Ophthalmic drops - instill 2 drop by OPHTHALMIC route 4 times per day for 7 days; 1 unit. - Work release form, Medication Reconciliation Form, Thank You Letter, Antibiotic Education, Prescription Opioid Use form. - Follow up: Emergency Department; When: As needed; Reason: Worsening of condition. Follow up: Private Physician; When: 2 - 3 days; Reason: Recheck today's complaints, Continuance of care, Re-evaluation by your physician. - Problem is new. - Symptoms have improved. Signatures: Varun Jordan MD MD [facility] Lynn Koroma RN RN aa5 Claus Corbin NP PUPPET MASTER pm1 Nishi Mendiola, CRIS RN ll1 Corrections: (The following items were deleted from the chart) 14:15 14:13 Tobramycin Drops (0.3 %) 2 drops Ophthalmic once ordered. pm1 pm1 14:48 14:12 10/16/2020 14:12 Discharged to Home. Impression: Injury of conjunctiva and aa5 corneal abrasion without foreign body, left eye. Condition is Stable. Forms are Medication Reconciliation Form, Thank You Letter, Antibiotic Education, Prescription Opioid Use. Follow up: Emergency Department; When: As needed; Reason: Worsening of condition. Follow up: Private Physician; When: 2 - 3 days; Reason: Recheck today's complaints, Continuance of care, Re-evaluation by your physician. Problem is new. Symptoms have improved. pm1
[2020-10-16] MEDS ORDERED: OFLOXACIN OPH 0.3%-5 ML BTL OTIC ONE (14:30)
[2020-10-16] MEDS ORDERED: HYDROCODONE/APAP 5/325 MG TAB ONE (14:38)
[2020-10-16 14:53] VITALS: BP 141/97; TEMP 98.3; O2SAT 100
== END 2020-10-16 14:48 | disposition home or self-care (01) ==
LOC: ER 12:27
DX: S05.02XA Injury of conjunctiva and corneal abrasion without foreign body, left eye, initial encounter (principal); I10 Essential (primary) hypertension
CPT/HCPCS: 99283

== ENCOUNTER 2021-02-08 18:07 | Emergency (ER) | payer SELFPAY ==
--- OUTSIDE RECORDS SUMMARY | 2021-02-08 18:10 | XMS REPORT | Continuity of Care Document ---
:1995 Author Organization [facility] t Address [address] [place] [address] Care Team Providers Name Role Phone Aviva [...] Department ID 2019-05-30 2019-05-30 Emergency Azalea Johnson [facility] [id number] 16:02:51 17:01:00 [facility] Wing [id number] [place] [id number] [place] [phone] [id number] Results This patient has no known results.
--- NOTE | 2021-02-08 18:31 | ER ---
Nurse's Notes [facility] Name: Enriqueta Hearn Age: 25 yrs Sex: Male : 1995 Arrival Date: 02/08/2021 Time: 18:08 Bed Waiting Private MD: Diagnosis: Cracked tooth;DNETAL PAIN Presentation: 02/08 18:20 Chief complaint: Patient states: L upper jaw tooth pain for 1 day. Needs a note for ll1 work. No fever. Coronavirus screen: Client denies travel out of the [place] in the last 14 days. At this time, the client does not indicate any symptoms associated with coronavirus-19. Ebola Screen: Patient denies travel to an Ebola-affected area in the 21 days before illness onset. Initial Sepsis Screen: Does the patient meet any 2 criteria? No. Patient's initial sepsis screen is negative. Does the patient have a suspected source of infection? Yes: Other: tooth. Risk Assessment: Do you want to hurt yourself or someone else? Patient reports no desire to harm self or others. Onset of symptoms was February 08, 2021. 18:20 Method Of Arrival: Ambulatory ll1 18:20 Acuity: HARESH 4 ll1 Triage Assessment: 18:24 General: Appears in no apparent distress. Behavior is calm, cooperative, appropriate ll1 for age. General: had Left upper jaw tooth pain earlier today. Had to leave work and would like a work excuse. . Pain: Denies pain. EENT: non tender jaw area. Reports pain since L upper jaw. Neuro: No deficits noted. Cardiovascular: No deficits noted. Respiratory: No deficits noted. Historical: - Allergies: 18:21 No Known Allergies; ll1 - PMHx: 18:21 Diabetes - NIDDM; Hypertension; Seizures; ll1 - PSHx: 18:21 None; ll1 - Immunization history:: Flu vaccine is up to date. - Social history:: Smoking status: Patient denies any tobacco usage or history of. Screenin:25 Abuse screen: Denies threats or abuse. Nutritional screening: No deficits noted. ll1 Tuberculosis screening: No symptoms or risk factors identified. Fall Risk None identified. Total Hawthorne Fall Scale indicates No Risk (0-24 pts). Vital Signs: 18:20 BP 124 / 74; Pulse 92; Resp 17; Temp 98.2; Pulse Ox 98% ; Pain 0/10; ll1 ED Course: 18:08 Patient arrived in ED. ds1 18:21 Triage completed. ll1 18:21 Arm band placed on. ll1 18:25 Cosmo Khan MD is Attending Physician. tw4 18:26 Patient has correct armband on for positive identification. Bed in low position. Call ll1 light in reach. Cardiac monitoring not applicable on this patient. 18:26 No provider procedures requiring assistance completed. Patient did not have IV access ll1 during this emergency room visit. Administered Medications: No medications were administered Outcome: 18:26 Medical screen evaluation completed per provider. Patient declined treatment. ll1 18:26 Condition: stable 18:26 Instructed on follow up and referral plans. 18:30 Discharge ordered by . tw4 18:35 Patient left the ED. ll1 Signatures: Alexa Yoo ds1 Cosmo Khan MD MD tw4 Nishi Mendiola, RN RN 1
--- NOTE | 2021-02-08 18:31 | EDPHYS ---
Physician Documentation [facility] Name: Enriqueta Hearn Age: 25 yrs Sex: Male : 1995 Arrival Date: 02/08/2021 Time: 18:08 Bed Waiting Private MD: TOÑO Physician Cosmo Khan HPI: 02/08 18:25 This 25 yrs old Black Male presents to ER via Ambulatory with complaints of Toothache. tw4 18:25 The patient presents with pain. The problem is located in the upper left first molar, tw4 upper left second molar and upper left third molar. Onset: The symptoms/episode began/occurred today. Duration: The symptoms are intermittent. Modifying factors: The symptoms are alleviated by nothing, the symptoms are aggravated by nothing. The patient has not experienced similar symptoms in the past. Historical: - Allergies: 18:21 No Known Allergies; ll1 - PMHx: 18:21 Diabetes - NIDDM; Hypertension; Seizures; ll1 - PSHx: 18:21 None; ll1 - Immunization history:: Flu vaccine is up to date. - Social history:: Smoking status: Patient denies any tobacco usage or history of. ROS: 18:25 Constitutional: Negative for fever, chills, and weight loss, Eyes: Negative for injury, tw4 pain, redness, and discharge. 18:25 Cardiovascular: Negative for chest pain, palpitations, and edema, Respiratory: Negative for shortness of breath, cough, wheezing, and pleuritic chest pain, Abdomen/GI: Negative for abdominal pain, nausea, vomiting, diarrhea, and constipation, Back: Negative for injury and pain. 18:25 ENT: Positive for dental pain, Negative for foreign body sensation. Exam: 18:25 Constitutional: This is a well developed, well nourished patient who is awake, alert, tw4 and in no acute distress. Head/Face: Normocephalic, atraumatic. Eyes: Pupils equal round and reactive to light, extra-ocular motions intact. Lids and lashes normal. Conjunctiva and sclera are non-icteric and not injected. Cornea within normal limits. Periorbital areas with no swelling, redness, or edema. 18:25 ENT: Posterior pharynx: is normal, Dental exam: dental caries. Vital Signs: 18:20 BP 124 / 74; Pulse 92; Resp 17; Temp 98.2; Pulse Ox 98% ; Pain 0/10; ll1 MDM: 18:25 Differential diagnosis: dental caries. Data reviewed: vital signs, nurses notes. tw4 Counseling: I had a detailed discussion with the patient and/or guardian regarding: the historical points, exam findings, and any diagnostic results supporting the discharge/admit diagnosis. Medical screen evaluation completed. EMTALA emergency medical condition absent. Special discussion: I discussed with the patient/guardian in detail that at this point there is no indication for admission to the hospital. It is understood, however, that if the symptoms persist or worsen the patient needs to return immediately for re-evaluation. 18:30 Patient medically screened. tw4 Administered Medications: No medications were administered Disposition: 02/08/21 18:30 Discharged to Home. Impression: Cracked tooth, DNETAL PAIN. - Condition is Stable. - Medication Reconciliation Form, Thank You Letter, Antibiotic Education, Prescription Opioid Use, Work release form form. - Follow up: Private Physician; When: Upon discharge from the Emergency Department; Reason: Recheck today's complaints, Continuance of care, Re-evaluation by your physician. - Problem is new. - Symptoms have improved. Signatures: Cosmo Khan MD MD tw4 Nishi Mendiola RN RN ll1 Corrections: (The following items were deleted from the chart) 18:35 18:30 02/08/2021 18:30 Discharged to Home. Impression: Cracked tooth; DNETAL PAIN. ll1 Condition is Stable. Forms are Work release form, Medication Reconciliation Form, Thank You Letter, Antibiotic Education, Prescription Opioid Use. Follow up: Private Physician; When: Upon discharge from the Emergency Department; Reason: Recheck today's complaints, Continuance of care, Re-evaluation by your physician. Problem is new. Symptoms have improved. tw4
[2021-02-08 18:41] VITALS: BP 124/74; TEMP 98.2; O2SAT 98
== END 2021-02-08 18:35 | disposition home or self-care (01) ==
LOC: ER 18:07
DX: K03.81 Cracked tooth (principal); I10 Essential (primary) hypertension
CPT/HCPCS: 99281

== ENCOUNTER 2021-03-09 14:11 | Emergency (ER) | payer SELFPAY ==
--- OUTSIDE RECORDS SUMMARY | 2021-03-09 14:14 | XMS REPORT | Continuity of Care Document ---
:1995 Author Organization [facility] t Address [address] [place] [address] Care Team Providers Name Role Phone Aviva [...] Department ID 2019-05-30 2019-05-30 Emergency Azalea Johnson [facility] [id number] 16:02:51 17:01:00 [facility] [id number] [place] [id number] [place] [phone] [id number] Results This patient has no known results.
[2021-03-09] MEDS ORDERED: NA CHLORIDE 0.9% 1,000 ML ONE (14:37)
[2021-03-09 14:40] LABS: Absolute Lymphocytes (CBC) 2.8 K/uL (0.7-4.9); Basophils % 0.9 % (0-1.3); Hematocrit 43.2 % (39.6-49.0); Lymphocytes % 30.7 % (15.3-44.8); MPV 10.5 fL (7.6-11.3); RBC Red Blood Cell Count 4.93 M/uL (4.33-5.43)
[2021-03-09 14:44] LABS: Protime INR 1.03
[2021-03-09 15:09] LABS: ALT/SGPT 42 U/L (12-78); Albumin 3.6 g/dL (3.4-5.0); Alkaline Phosphatase 124 U/L (45-117); BUN Blood Urea Nitrogen 12 mg/dL (7-18); Bicarbonate 27 mmol/L (21-32); Bilirubin Direct < 0.1 mg/dL (0-0.2); Bilirubin Total 0.6 mg/dL (0.2-1.0); Creatine Phosphokinase 158 U/L (39-308); NT PRO-BNP < 5 pg/mL (<125); Protein, Total 8.3 g/dL (6.4-8.2); Sodium Level 132 mmol/L (136-145); Troponin (Emerg Dept Use Only) < 0.02 ng/mL (0.0-0.045)
[2021-03-09 15:10] LABS: AST/SGOT 25 U/L (15-37); Potassium 4.7 mmol/L (3.5-5.1)
[2021-03-09 15:11] LABS: Glucose Level 533 mg/dL (74-106)
[2021-03-09 15:19] LABS: Arterial Blood Carboxyhemoglob 0.8 % (0-1.5); Blood Gas Oxyhemoglobin 94.5 % (94-97); Blood O2 Saturation 96.2 % (92-98.5)
[2021-03-09 15:46] LABS: Urine Blood Trace-intact (Negative); Urine Glucose 2+ (Negative); Urine Protein Negative (Negative); Urine Specific Gravity 1.015 (1.005-1.030); Urine pH 5.5 (5.0-7.0)
[2021-03-09] MEDS ORDERED: INSULIN -REGULAR HUMAN 50 UNIT/0.5 ML ML ONE (15:47)
--- NOTE | 2021-03-09 16:24 | ER ---
Nurse's Notes [facility] Name: Enriqueta Hearn Age: 25 yrs Sex: Male : 1995 Arrival Date: 03/09/2021 Time: 14:12 Bed 2 Private MD: Diagnosis: Hyperglycemia, unspecified;Vomiting Presentation: 03/09 14:12 Chief complaint: EMS states: was at work and started having n/v. On EMS arrival 20G R sv AC, LR 500 mls bolus, Zofran 4mg IVP, EKG-SR, BS-HIGH. Pt stated he ran out of his Metformin 2 days ago. Coronavirus screen: Client denies travel out of the [place] in the last 14 days. At this time, the client does not indicate any symptoms associated with coronavirus-19. Ebola Screen: No symptoms or risks identified at this time. Risk Assessment: Do you want to hurt yourself or someone else? Patient reports no desire to harm self or others. Onset of symptoms was March 09, 2021. 14:12 Method Of Arrival: EMS: [facility] sv 14:12 Acuity: HARESH 2 sv 14:23 Initial Sepsis Screen: Does the patient meet any 2 criteria? No. Patient's initial tw2 sepsis screen is negative. Does the patient have a suspected source of infection? No. Patient's initial sepsis screen is negative. Triage Assessment: 14:22 General: Appears in no apparent distress. obese, Behavior is calm, cooperative, tw2 appropriate for age. Pain: Denies pain. EENT: No signs and/or symptoms were reported regarding the EENT system. Neuro: Level of Consciousness is awake, alert, obeys commands, Oriented to person, place, time, situation. Cardiovascular: Patient's skin is warm and dry. Respiratory: Airway is patent Respiratory effort is even, unlabored, Respiratory pattern is regular, symmetrical. GI: Reports nausea, vomiting. : No signs and/or symptoms were reported regarding the genitourinary system. Derm: Skin is intact, is healthy with good turgor, Skin is clammy. Musculoskeletal: Range of motion: intact in all extremities. Historical: - Allergies: 14:19 No Known Allergies; sv - PMHx: 14:19 Diabetes - NIDDM; Hypertension; Seizures; sv - PSHx: 14:19 None; sv - Immunization history:: Client reports receiving the 2nd dose of the Covid vaccine, Client reports receiving the 1st dose of the Covid vaccine. - Social history:: Smoking status: Patient denies any tobacco usage or history of. Screenin:21 Abuse screen: Denies threats or abuse. Nutritional screening: No deficits noted. tw2 Tuberculosis screening: No symptoms or risk factors identified. Fall Risk None identified. Assessment: 14:23 Reassessment: see triage assessment. tw2 15:47 Reassessment: Patient appears in no apparent distress at this time. Patient and/or hb family updated on plan of care and expected duration. Pain level reassessed. Patient is alert, oriented x 3, equal unlabored respirations, skin warm/dry/pink. 16:39 Reassessment: Patient appears in no apparent distress at this time. Patient and/or tw2 family updated on plan of care and expected duration. Pain level reassessed. Patient is alert, oriented x 3, equal unlabored respirations, skin warm/dry/pink. Patient states feeling better. Vital Signs: 14:12 Weight 129.27 kg; Height 6 ft. 1 in. (185.42 cm); Pain 0/10; sv 14:21 BP 138 / 88; Pulse 20; Resp 18; Temp 97.9(TE); Pulse Ox 99% on R/A; tw2 15:44 BP 118 / 86; Pulse 95; Resp 15; Pulse Ox 98% on R/A; tw2 16:39 BP 101 / 89; Pulse 90; Resp 17; Pulse Ox 100% on R/A; tw2 14:12 Body Mass Index 37.60 (129.27 kg, 185.42 cm) sv ED Course: 14:12 Patient arrived in ED. sv 14:12 Oscar Rainey PA is PHCP. jm 14:12 Augustin King MD is Attending Physician. [facility] 14:12 Bed in low position. Call light in reach. Side rails up X2. court recording monitor on. Pulse tw2 ox on. NIBP on. Warm blanket given. 14:13 Triage completed. sv 14:21 Arm band placed on. tw2 14:23 Maintain EMS IV. Dressing intact. Good blood return noted. Site clean \T\ dry. Gauge \T\ tw 2 site: 20 g RIGHT ac. 14:57 CPK Sent. sv 14:57 Ketone, Serum Sent. sv 14:57 Troponin (emerg Dept Use Only) Sent. sv 14:58 PT-INR Sent. sv 14:58 NT PRO-BNP Sent. sv 14:58 Magnesium Sent. sv 14:58 LFT's Sent. sv 14:58 CBC with Diff Sent. sv 14:58 Basic Metabolic Panel Sent. sv 15:24 Kandace Fna, RN is Primary Nurse. hb 16:40 No provider procedures requiring assistance completed. IV discontinued, intact, tw2 bleeding controlled, No redness/swelling at site. Pressure dressing applied. Administered Medications: 14:21 Drug: NS 0.9% 1000 ml Route: IV; Rate: 1 bolus; Site: right antecubital; tw2 16:41 Follow up: IV Status: Order to discontinue infusion; IV Intake: 700ml tw2 15:35 Drug: Insulin Regular Human 5 units {Co-Signature: tw2 (Yesi Jurado RN).} Route: Sub-Q; hb Site: right upper arm; 16:40 Follow up: Response: No adverse reaction; Blood sugar is lowered tw2 15:36 Drug: Insulin Regular Human 5 units {Co-Signature: tw2 (Yesi Juraod RN).} Route: IVP; hb Site: right antecubital; 16:41 Follow up: Response: No adverse reaction tw2 Point of Care Testing: Blood Glucose: 16:35 Blood Glucose: 352 mg/dL; tw2 16:35 provider notified. tw2 Ranges: Intake: 16:41 IV: 700ml; Total: 700ml. tw2 Outcome: 16:23 Discharge ordered by MD. lemus 16:40 Discharged to home ambulatory. tw2 16:40 Condition: stable 16:40 Discharge instructions given to patient, Instructed on discharge instructions, follow up and referral plans. Demonstrated understanding of instructions, follow-up care. 16:41 Patient left the ED. tw2 Signatures: Heavenly Rush, RN Oscar Mary PA PA jmm Baxter, Heather, RN Yesi Lowery RN RN tw2 Yesi Jurado RN tw2 Corrections: (The following items were deleted from the chart) 14:19 14:12 Chief complaint: EMS states: was at work and started having n/v. On EMS arrival sv 20G R AC, LR 500 mls bolus, Zofran 4mg IVP, EKG-SR, BS-HIGH sv
--- NOTE | 2021-03-09 16:24 | EDPHYS ---
Physician Documentation [facility] Name: Enriqueta Hearn Age: 25 yrs Sex: Male : 1995 Arrival Date: 03/09/2021 Time: 14:12 Bed 2 Private MD: ED Physician Augustin King HPI: 03/09 14:12 This 25 yrs old Black Male presents to ER via EMS with complaints of Nausea/Vomiting, jmm High Blood Sugar. 14:12 The patient presents to the emergency department with nausea, vomiting. Onset: The jmm symptoms/episode began/occurred acutely, just prior to arrival. Possible causes: elevated blood glucose, heat exhaustion. The symptoms are aggravated by nothing. The symptoms are alleviated by. Associated signs and symptoms: Pertinent negatives: fever. This is a 25 year old male with a history of htn, epilepsy that presents to the ED with complaints of vomiting. Patient was at work when this developed. Patient states he has taken his metformin in 2 days and normally has a bgl around 300. Denies chest pain, abdominal pain. . Historical: - Allergies: 14:19 No Known Allergies; sv - PMHx: 14:19 Diabetes - NIDDM; Hypertension; Seizures; sv - PSHx: 14:19 None; sv - Immunization history:: Client reports receiving the 2nd dose of the Covid vaccine, Client reports receiving the 1st dose of the Covid vaccine. - Social history:: Smoking status: Patient denies any tobacco usage or history of. ROS: 14:12 Constitutional: Negative for fever, chills, and weight loss, Cardiovascular: Negative jmm for chest pain, palpitations, and edema, Respiratory: Negative for shortness of breath, cough, wheezing, and pleuritic chest pain. 14:12 Abdomen/GI: Positive for vomiting. 14:12 All other systems are negative. Exam: 14:12 Constitutional: This is a well developed, well nourished patient who is awake, alert, jmm and in no acute distress. Head/Face: atraumatic. Eyes: EOMI, no conjunctival erythema appreciated ENT: Moist Mucus Membranes Neck: Trachea midline, Supple Chest/axilla: Normal chest wall appearance and motion. Cardiovascular: Regular rate and rhythm. No edema appreciated Respiratory: Normal respirations, no respiratory distress appreciated Abdomen/GI: Non distended, soft Back: Normal ROM Skin: General appearance color normal MS/ Extremity: Moves all extremities, no obvious deformities appreciated, no edema noted to the lower extremities Neuro: Awake and alert, normal gait Psych: Behavior is normal, Mood is normal, Patient is cooperative and pleasant 14:32 ECG was reviewed by the Attending Physician. [facility] Vital Signs: 14:12 Weight 129.27 kg; Height 6 ft. 1 in. (185.42 cm); Pain 0/10; sv 14:21 BP 138 / 88; Pulse 20; Resp 18; Temp 97.9(TE); Pulse Ox 99% on R/A; tw2 15:44 BP 118 / 86; Pulse 95; Resp 15; Pulse Ox 98% on R/A; tw2 16:39 BP 101 / 89; Pulse 90; Resp 17; Pulse Ox 100% on R/A; tw2 14:12 Body Mass Index 37.60 (129.27 kg, 185.42 cm) sv MDM: 14:12 Patient medically screened. [facility] 16:21 Data reviewed: vital signs, nurses notes. Counseling: I had a detailed discussion with [facility] the patient and/or guardian regarding: the historical points, exam findings, and any diagnostic results supporting the discharge/admit diagnosis, lab results, the need for outpatient follow up, to return to the emergency department if symptoms worsen or persist or if there are any questions or concerns that arise at home. ED course: I do not suspect dka, patient is advised to follow up with pcp and otherwise given strict return precautions. patient understood and agrees with the plan of care. . 03/09 14:13 Order name: Basic Metabolic Panel [facility] 03/09 14:13 Order name: CBC with Diff [facility] 03/09 14:13 Order name: LFT's [facility] 03/09 14:13 Order name: Magnesium [facility] 03/09 14:13 Order name: NT PRO-BNP [facility] 03/09 14:13 Order name: PT-INR [facility] 03/09 14:13 Order name: Troponin (emerg Dept Use Only) [facility] 03/09 14:13 Order name: Ketone, Serum [facility] 03/09 14:13 Order name: CPK [facility] 03/09 14:27 Order name: Glucose, Ancillary Testing; Complete Time: 14:28 [facility] 03/09 14:41 Order name: CBC with Automated Diff; Complete Time: 14:42 EDMS 03/09 14:45 Order name: Protime (+INR); Complete Time: 14:46 EDMS 03/09 14:52 Order name: Acetone Level; Complete Time: 15:14 EDMS 03/09 14:59 Order name: ABG [facility] 03/09 14:13 Order name: EKG; Complete Time: 14:14 [facility] 03/09 14:13 Order name: Cardiac monitoring; Complete Time: 14:20 [facility] 03/09 14:13 Order name: EKG - Nurse/Tech; Complete Time: 14:22 [facility] 03/09 14:13 Order name: IV Saline Lock; Complete Time: 14:20 [facility] 03/09 14:13 Order name: Labs collected and sent; Complete Time: 14:20 [facility] 03/09 15:12 Order name: Basic Metabolic Panel; Complete Time: 15:14 EDMS 03/09 15:12 Order name: Liver (Hepatic) Function; Complete Time: 15:14 EDMS 03/09 15:12 Order name: Creatine Phosphokinase; Complete Time: 15:14 EDMS 03/09 15:12 Order name: Troponin (Emerg Dept Use Only); Complete Time: 15:14 EDMS 03/09 15:12 Order name: NT PRO-BNP; Complete Time: 15:14 EDMS 03/09 15:12 Order name: Magnesium; Complete Time: 15:14 EDMS 03/09 15:46 Order name: Urine Dipstick-Ancillary; Complete Time: 15:55 EDMS 03/09 16:32 Order name: ABG Arterial Blood Gas; Complete Time: 16:35 EDMN 03/09 14:13 Order name: O2 Per Protocol; Complete Time: 14:20 [facility] 03/09 14:13 Order name: O2 Sat Monitoring; Complete Time: 14:20 [facility] 03/09 14:13 Order name: Urine Dipstick-Ancillary (obtain specimen); Complete Time: 15:45 m 03/09 16:35 Order name: Blood Glucose Level; Complete Time: 16:35 tw2 EC:32 Rate is 89 beats/min. Rhythm is regular. QRS Gila is Normal. FL interval is normal. QRS jmm interval is normal. QT interval is normal. No Q waves. T waves are Flattened in lead aVF. No ST changes noted. Reviewed by me. Administered Medications: 14:21 Drug: NS 0.9% 1000 ml Route: IV; Rate: 1 bolus; Site: right antecubital; tw2 16:41 Follow up: IV Status: Order to discontinue infusion; IV Intake: 700ml tw2 15:35 Drug: Insulin Regular Human 5 units {Co-Signature: tw2 (Yesi Jurado RN).} Route: Sub-Q; hb Site: right upper arm; 16:40 Follow up: Response: No adverse reaction; Blood sugar is lowered tw2 15:36 Drug: Insulin Regular Human 5 units {Co-Signature: tw2 (Yesi Jurado RN).} Route: IVP; hb Site: right antecubital; 16:41 Follow up: Response: No adverse reaction tw2 Point of Care Testing: Blood Glucose: 16:35 Blood Glucose: 352 mg/dL; tw2 16:35 provider notified. tw2 Ranges: Critical Glucose Levels:Adult <50 mg/dl or >400 mg/dl <40 mg/dl or >180 mg/dl Disposition: 16:50 Co-signature as Attending Physician, Augustin King MD. rn Disposition: 03/09/21 16:23 Discharged to Home. Impression: Hyperglycemia, unspecified, Vomiting. - Condition is Stable. - Discharge Instructions: Hyperglycemia, Nausea and Vomiting, Adult. - Medication Reconciliation Form, Thank You Letter, Antibiotic Education, Prescription Opioid Use, Work release form form. - Follow up: Private Physician; When: 2 - 3 days; Reason: Recheck today's complaints, Continuance of care, Re-evaluation by your physician. Signatures: Dispatcher [employer] Heavenly Oviedo, RN RN Oscar Downing PA PA jmm Nieto, Roman, MD MD rn Baxter, Heather, RN RN hb Wise, Tara, RN RN tw2 Yesi Jurado RN tw2 Corrections: (The following items were deleted from the chart) 16:41 16:23 03/09/2021 16:23 Discharged to Home. Impression: Hyperglycemia, unspecified; tw2 Vomiting. Condition is Stable. Forms are Work release form, Medication Reconciliation Form, Thank You Letter, Antibiotic Education, Prescription Opioid Use. Follow up: Private Physician; When: 2 - 3 days; Reason: Recheck today's complaints, Continuance of care, Re-evaluation by your physician. robem
--- NOTE | 2021-03-10 08:44 | EKG ---
Test Date: 2021-03-09 Test Time: 14:22:29 Coal Screener: HB MEASUREMENT RESULTS: Intervals: Rate: 89 HI: 136 QRSD: 104 QT: 370 QTc: 450 Darby: P: 45 HI: 136 QRS: 89 T: 6 INTERPRETIVE STATEMENTS: Normal sinus rhythm Nonspecific T wave abnormality Abnormal ECG Compared to ECG 01/28/2020 16:09:37 T-wave abnormality now present Electronically Signed On 03-10-21 08:41:39 CDT by Balbir Wilkinson
== END 2021-03-09 16:41 | disposition home or self-care (01) ==
LOC: ER 14:11
DX: E11.65 Type 2 diabetes mellitus with hyperglycemia (principal); I10 Essential (primary) hypertension
CPT/HCPCS: 36415; 80048; 80076; 81003; 82010; 82550; 82805; 82947; 83735; 83880; 84484; 85025; 85610; 93005; 96361; 96372; 96374; 99284; J7030

== ENCOUNTER 2021-03-30 19:33 | Emergency (ER) | payer SELFPAY ==
--- OUTSIDE RECORDS SUMMARY | 2021-03-30 19:35 | XMS REPORT | Continuity of Care Document ---
:1995 Author Organization [facility] t Address [address] [place] [address] Care Team Providers Name Role Phone Aviva [...] Department ID 2019-05-30 2019-05-30 Emergency Azalea Johnson [facility] [id number] 16:02:51 17:01:00 [facility] [id number] [place] [id number] [place] [phone] [id number] Results This patient has no known results.
--- NOTE | 2021-03-30 20:43 | EDPHYS ---
Physician Documentation [facility] Name: Enriqueta Hearn Age: 25 yrs Sex: Male : 1995 Arrival Date: 03/30/2021 Time: 19:35 Bed 30 Private MD: ED Physician Nicholas Benson HPI: 03/30 22:43 This 25 yrs old Black Male presents to ER via Ambulatory with complaints of Work kb Release. 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 kb Came here and was evaluated, sent home and told he could return to work. States his job put him on a 2 week medical leave to get his conditions under control and now that its over they want a new note saying he can return. Pt has no complaints. . Onset: The symptoms/episode began/occurred 3 week(s) ago. Severity of symptoms: At their worst the symptoms were moderate in the emergency department the symptoms have resolved. The patient has not experienced similar symptoms in the past. The patient has not recently seen a physician. Historical: - Allergies: 19:56 No Known Allergies; ca1 - PMHx: 19:56 Diabetes - NIDDM; Hypertension; Seizures; Diabetes - IDDM; ca1 - PSHx: 19:56 None; ca1 - Immunization history:: Client reports receiving the 2nd dose of the Covid vaccine, Client reports receiving the 1st dose of the Covid vaccine, Flu vaccine is up to date. - Social history:: Smoking status: Patient denies any tobacco usage or history of. ROS: 22:42 Constitutional: Negative for fever, chills, and weight loss, ENT: Negative for injury, kb pain, and discharge, Cardiovascular: Negative for chest pain, palpitations, and edema, Respiratory: Negative for shortness of breath, cough, wheezing, and pleuritic chest pain, Abdomen/GI: Negative for abdominal pain, nausea, vomiting, diarrhea, and constipation, MS/Extremity: Negative for injury and deformity, Skin: Negative for injury, rash, and discoloration, Neuro: Negative for headache, weakness, numbness, tingling, and seizure. Exam: 22:42 Constitutional: This is a well developed, well nourished patient who is awake, alert, kb and in no acute distress. ENT: Moist Mucous membranes Respiratory: Respirations even and unlabored. No increased work of breathing, no retractions or nasal flaring. Skin: Warm, dry with normal turgor. Normal color. MS/ Extremity: Pulses equal, no cyanosis. Neurovascular intact. Full, normal range of motion. Neuro: Awake and alert, GCS 15, oriented to person, place, time, and situation. Moves all extremities. Normal gait. Psych: Awake, alert, with orientation to person, place and time. Behavior, mood, and affect are within normal limits. Vital Signs: 19:50 BP 127 / 84; Pulse 92; Resp 18 S; Temp 98.7(TE); Pulse Ox 98% on R/A; Weight 121.56 kg ca1 (R); Height 6 ft. 1 in. (185.42 cm) (R); Pain 0/10; 19:50 Body Mass Index 35.36 (121.56 kg, 185.42 cm) ca1 MDM: 20:09 Patient medically screened. kb 22:42 Data reviewed: vital signs, nurses notes. Data interpreted: Pulse oximetry: on room air kb is 98 %. Interpretation: normal. Counseling: I had a detailed discussion with the patient and/or guardian regarding: the historical points, exam findings, and any diagnostic results supporting the discharge/admit diagnosis, the need for outpatient follow up, a family practitioner, to return to the emergency department if symptoms worsen or persist or if there are any questions or concerns that arise at home. Administered Medications: No medications were administered Disposition: 03/31 01:01 Co-signature as Attending Physician, Nicholas Benson MD. 7 Disposition: 03/30/21 20:42 Discharged to Home. Impression: Encounter for issue of medical certificate. - Condition is Stable. - Work release form, Medication Reconciliation Form, Thank You Letter, Antibiotic Education, Prescription Opioid Use form. - Follow up: Private Physician; When: 2 - 3 days; Reason: Recheck today's complaints, Continuance of care, Re-evaluation by your physician. Follow up: Emergency Department; When: As needed; Reason: Worsening of condition. Signatures: Erin Pitts FNP-C FNP-Minal Rose RN RN ap3 Sole Washington RN RN ca1 Holmes, Maurice, MD MD 7 Corrections: (The following items were deleted from the chart) 06/08 20:52 20:42 03/30/2021 20:42 Discharged to Home. Impression: Encounter for issue of medical ap3 certificate. Condition is Stable. Forms are Medication Reconciliation Form, Thank You Letter, Antibiotic Education, Prescription Opioid Use. Follow up: Private Physician; When: 2 - 3 days; Reason: Recheck today's complaints, Continuance of care, Re-evaluation by your physician. Follow up: Emergency Department; When: As needed; Reason: Worsening of condition. 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 Came here and was evaluated, sent home and told he could return to work. States his job put him on a 2 week medical leave to get his conditions under control and now that its over they want a new note saying he can return.. kb
--- NOTE | 2021-03-30 20:43 | ER ---
Nurse's Notes [facility] Name: Enriqueta Hearn Age: 25 yrs Sex: Male : 1995 Arrival Date: 03/30/2021 Time: 19:35 Bed 30 Private MD: Diagnosis: Encounter for issue of medical certificate Presentation: 03/30 19:50 Chief complaint: Patient states: I need a work note to go back to work. They put me on ca1 2 week-leave because my blood sugar was high. Now I have brought it down to the 200s and I just need a note for work. I don't have a PCP so I come here. No complains at this time. Coronavirus screen: Client denies travel out of the [place] in the last 14 days. At this time, the client does not indicate any symptoms associated with coronavirus-19. Ebola Screen: Patient negative for fever greater than or equal to 101.5 degrees Fahrenheit, and additional compatible Ebola Virus Disease symptoms Patient denies exposure to infectious person. Patient denies travel to an Ebola-affected area in the 21 days before illness onset. No symptoms or risks identified at this time. Initial Sepsis Screen: Does the patient meet any 2 criteria? No. Patient's initial sepsis screen is negative. Does the patient have a suspected source of infection? No. Patient's initial sepsis screen is negative. Risk Assessment: Do you want to hurt yourself or someone else? Patient reports no desire to harm self or others. Onset of symptoms was March 30, 2021. 19:50 Method Of Arrival: Ambulatory ca1 19:50 Acuity: HARESH 4 ca1 Historical: - Allergies: 19:56 No Known Allergies; ca1 - PMHx: 19:56 Diabetes - NIDDM; Hypertension; Seizures; Diabetes - IDDM; ca1 - PSHx: 19:56 None; ca1 - Immunization history:: Client reports receiving the 2nd dose of the Covid vaccine, Client reports receiving the 1st dose of the Covid vaccine, Flu vaccine is up to date. - Social history:: Smoking status: Patient denies any tobacco usage or history of. Screenin:29 Abuse screen: Denies threats or abuse. Nutritional screening: No deficits noted. ap3 Tuberculosis screening: No symptoms or risk factors identified. Fall Risk None identified. Assessment: 20:28 General: Appears in no apparent distress. comfortable, Behavior is calm, cooperative, ap3 appropriate for age. Pain: Denies pain. Neuro: Level of Consciousness is awake, alert, obeys commands, Oriented to person, place, time, situation. Cardiovascular: Denies chest pain, Capillary refill < 3 seconds. Respiratory: Airway is patent Respiratory effort is even, unlabored, Respiratory pattern is regular, symmetrical. GI: No signs and/or symptoms were reported involving the gastrointestinal system. : No signs and/or symptoms were reported regarding the genitourinary system. EENT: No signs and/or symptoms were reported regarding the EENT system. Derm: No signs and/or symptoms reported regarding the dermatologic system. Musculoskeletal: No signs and/or symptoms reported regarding the musculoskeletal system. Vital Signs: 19:50 BP 127 / 84; Pulse 92; Resp 18 S; Temp 98.7(TE); Pulse Ox 98% on R/A; Weight 121.56 kg ca1 (R); Height 6 ft. 1 in. (185.42 cm) (R); Pain 0/10; 19:50 Body Mass Index 35.36 (121.56 kg, 185.42 cm) ca1 ED Course: 19:35 Patient arrived in ED. do 19:55 Triage completed. ca1 19:56 Arm band placed on right wrist. ca1 20:08 [facility]C [facility] kb 20:09 Nicholas Benson MD is Attending Physician. kb 20:10 Minal Oliver, CRIS is Primary Nurse. ap3 20:29 Patient has correct armband on for positive identification. Call light in reach. Door ap3 closed. Noise minimized. 20:52 No provider procedures requiring assistance completed. Patient did not have IV access ap3 during this emergency room visit. Administered Medications: No medications were administered Outcome: 20:42 Discharge ordered by . kb 20:52 Discharged to home ambulatory. ap3 20:52 Condition: good 20:52 Discharge instructions given to patient, Instructed on discharge instructions, Demonstrated understanding of instructions. 20:52 Patient left the ED. ap3 Signatures: Erin Pitts FNP-C FNP-Megan Chery Amanda, RN RN ap3 Sole Washington RN RN ca1
[2021-03-30 21:10] VITALS: BP 127/84; TEMP 98.7; O2SAT 98
== END 2021-03-30 20:52 | disposition home or self-care (01) ==
LOC: ER 19:33
DX: Z02.79 Encounter for issue of other medical certificate (principal)
CPT/HCPCS: 99281

== ENCOUNTER 2021-11-06 23:00 | Emergency (ER) | payer SELFPAY ==
--- OUTSIDE RECORDS SUMMARY | 2021-11-06 23:03 | XMS REPORT | Continuity of Care Document ---
:1995 Author Organization [facility] t Address [address] [place] [address] Care Team Providers Name Role Phone Pcp, Does Not Have A Primary Care Physician Cynthia Rao MD Attending Clinician Aviva Solomon Attending Clinician Problems Condition Condition Condition Status Onset Resolution Last Treating Co mments Source Name Details Category Date Date Treatment Clinician Date No known No known Disease Unive rs active active ity of problems problems [facility] Allergies, Adverse Reactions, Alerts Allergy Allergy Status Severity Reaction(s) Onset Inactive Treating Comm ents Source Name Type Date Date Clinician NO KNOWN Drug Active Univers ALLERGIE Class ity of S [facility] Social History Social Habit Start Date Stop Date Quantity Comments Source Exposure to Yes [facility] SARS-CoV-2 (event) Medica l Branch Sex Assigned At [birth year] [facility] 00:00:00 00:00:00 [facility] Smoking Status Start Date Stop Date Source Unknown if ever smoked [facility] Medications Ordered Filled Start Stop Current Ordering Indication Dosage Frequency Signature Comments Components Source Medication Medication Date Date Medication? Clinician (SIG) Name Name insulin 2020- No 10U 10 Units, Univ ers regular 06-22 Subcutaneo ity o f human 04:00: 04:00 , [facility], [place] (HUMULIN R) 00 :00 1 dose, Medic al injection Mon Branch 10 Units 06/21/21 at 2300, JEMIMA casirivimab 2020- No 1200mg 1,200 mg, Univers -imdevimab 06-22 IV ity of 1200 mg in 04:00: 03:40 [place], [place] 60 mL NS 00 :00 ONCE, Medical MINI-BAG Administer Branc h over 20 Minutes, 06/21/21 at 2300, For 1 dose
Ad timber spotter as an IV infusion via pump or gravity through an intravenou s line containing a sterile, in-line or add-on 0.2-micron polyethers ulfone (PES) filter. Stable 36 hours refrigerat ed; 4 hours at room temperatur e.
insulin 2020- No 10U 10 Units, Univ ers regular 06-22 Subcutaneo ity o f human 04:00: 04:00 , ONCE, [place] (HUMULIN R) 00 :00 1 dose, Medic al injection [facility] 10 Units 06/21/21 at 2300, [facility] casirivimab 2020- No 1200mg 1,200 mg, Univers -imdevimab 06-22 IV ity of 1200 mg in 04:00: 03:40 Infusion, [place] 60 mL NS 00 :00 ONCE, Medical MINI-BAG Administer Branc h over 20 Minutes, 06/21/21 at 2300, For 1 dose
Ad timber spotter as an IV infusion via pump or gravity through an intravenou s line containing a sterile, in-line or add-on 0.2-micron polyethers ulfone (PES) filter. Stable 36 hours refrigerat ed; 4 hours at room temperatur e.
METFORMIN 2020- No Take by Uni vers HCL 06-22 mouth. ity of (METFORMIN 03:49: 00:00 [place] ORAL) 43 :00 [facility] METFORMIN 2020- No Take by Uni vers HCL 06-22 mouth. ity of (METFORMIN 03:49: 00:00 [place] ORAL) 43 :00 [facility] acetaminoph 2020- No 1000mg 1,000 mg, Univers en 06-22 Oral, ity of (TYLENOL) 00:45: 00:53 [place]CE[place] tablet [place] :[place] dose, Mon Medical 1,000 mg 06/21/21 at [place] h 1945, JEMIMA acetaminoph 2020- No 1000mg 1,000 mg, Univers en 06-22 Oral, ity of (TYLENOL) 00:45: 00:53 [place]CE[place] dose, Mon Medical 1,000 mg 06/21/21 at [facility] h 1945, JEMIMA albuterol 0 Yes [id number] 2{puff} Inhale 2 Univers 90 8-30 Puffs ity of mcg/actuati 00:00: every 4 [place] as on inhaler 00 (four) Medical hours as Branch needed for Wheezing or Shortness of Breath. benzonatate Yes [id number] 100mg Take 1 Univers 100 mg 8-30 capsule by ity of capsule 00:00: mouth 3 (three) Medical times Branch daily as needed for Cough. metFORMIN Yes [id number] 1000mg Take 1 Univers 1,000 mg 8-30 tablet by ity of tablet 00:00: mouth 2 (two) Medical times Branch daily with meals. albuterol Yes [id number] 2{puff} Inhale 2 Univers 90 8-30 Puffs ity of mcg/actuati 00:00: every 4 [place] as on inhaler 00 (four) Medical hours as Branch needed for Wheezing or Shortness of Breath. benzonatate Yes [id number] 100mg Take 1 Univers 100 mg 8-30 capsule by ity of capsule 00:00: mouth 3 (three) Medical times Branch daily as needed for Cough. metFORMIN Yes [id number] 1000mg Take 1 Univers 1,000 mg 8-30 tablet by ity of tablet 00:00: mouth 2 00 (two) Medical times Branch daily with meals. ibuprofen Yes [id number] 600mg Take 1 Univers 600 mg 8-08 [id number] tablet by ity of tablet 00:00: mouth [place] 00 every 6 Medical (six) Branch hours as needed for Pain (scale 4-6). ibuprofen Yes [id number] 600mg Take 1 Univers 600 mg 8-08 [id number] tablet by ity of tablet 00:00: mouth [place] 00 every 6 Medical (six) Branch hours as needed for Pain (scale 4-6). ibuprofen Yes [id number] 600mg Take 1 Univers 600 mg 05-30 [id number] tablet by ity of tablet 00:00: mouth [place] 00 every 6 Medical (six) Branch hours as needed for Pain (scale 4-6). GLYBURIDE Yes Take by [facility] ers ORAL 7-12 mouth. ity of 04:06: [address] LISINOPRIL Yes Take by Uni vers ORAL 7-12 mouth. ity of 04:06: [address] METFORMIN Yes Take by [facility] ers HCL 7-12 mouth. ity of (METFORMIN 04:06: [address] GLYBURIDE Yes Take by [facility] ers ORAL 7-12 mouth. ity of 04:06: [address] LISINOPRIL Yes Take by Uni vers ORAL 7-12 mouth. ity of 04:06: [address] GLYBURIDE Yes Take by [facility] ers ORAL 7-12 mouth. ity of 04:06: [address] LISINOPRIL Yes Take by Uni vers ORAL 7-12 mouth. ity of 04:06: [address] Vital Signs Vital Name Observation Time Observation Value Comments Source Systolic blood 2021-06-22 03:00:00 119 mm[Hg] [facility] Diastolic blood 2021-06-22 03:00:00 77 mm[Hg] [facility] Heart rate 2021-06-22 03:00:00 83 /min [facility] Body temperature 2021-06-22 03:00:00 37.28 Diana [facility] Respiratory rate 2021-06-22 03:00:00 18 /min [facility] Oxygen saturation in 2021-06-22 03:00:00 96 /min [facility] Arterial blood by [facility] Pulse oximetry Branch Body weight 2021-06-22 00:09:00 124.739 kg [facility] BMI 2021-06-22 00:09:00 35.31 kg/m2 [facility] Systolic blood 2019-05-30 21:01:00 141 mm[Hg] Univer sity of pressure [place] [facility] Diastolic blood 2019-05-30 21:01:00 84 mm[Hg] Unive rsity of pressure [facility] Branch Heart rate 2019-05-30 21:01:00 84 /min [facility]i ty [facility] [place] [facility] Respiratory rate 2019-05-30 21:01:00 18 /min [facility] Body height 2019-05-30 21:01:00 188 cm [facility]i ty [facility] [place] [facility] Body weight 2019-05-30 21:01:00 129.275 kg [facility] [place] [facility] BMI 2019-05-30 21:01:00 36.59 kg/m2 Universi ty [facility] Oxygen saturation in 2019-05-30 21:01:00 98 /min University of Arterial blood by [facility] Pulse oximetry Branch Systolic blood 2019-05-30 21:01:00 141 mm[Hg] Univer sity of pressure [facility] Diastolic blood 2019-05-30 21:01:00 84 mm[Hg] Unive rsity of pressure [facility] Heart rate 2019-05-30 21:01:00 84 /min [facility] [place] [facility] Respiratory rate 2019-05-30 21:01:00 18 /min Univ [facility] Body height 2019-05-30 21:01:00 188 cm [facility] [place] [facility] Body weight 2019-05-30 21:01:00 129.275 kg Universi ty [facility] Medical [place] BMI 2019-05-30 21:01:00 36.59 kg/m2 Universi ty [facility] Oxygen saturation in 2019-05-30 21:01:00 98 /min University of Arterial blood by [facility] Pulse oximetry Branch Procedures Procedure Date / Time Performing Clinician Source Performed XR CHEST 1 VW 2021-06-22 02:44:13 Javier Rao [facility] CBC WITH DIFF 2021-06-22 00:53:00 Javier Rao [facility] GLYCOSYLATED HEMOGLOBIN 2021-06-22 00:53:00 Javier Rao [facility] (A1C) Medical Branch COVID-19 (ID NOW RAPID 2021-06-22 00:53:00 Javier Rao [facility] TESTING) Medical Branch BASIC METABOLIC PANEL 2021-06-22 00:52:00 Javier Rao [facility] (NA, K, CL, CO2, Medical Branch GLUCOSE, BUN, CREATININE, CA) CONSENT/REFUSAL FOR 2021-06-22 00:09:58 Doctor Unassigned, No [facility] DI[facility]AT[facility] Name Medical Branch NOTICE OF PRIVACY 2019-05-30 20:50:54 Doctor Unassigned, No [facility] PRACTICES Name Medical Branch CONSENT/REFUSAL FOR 2019-05-30 20:50:26 Doctor Unassigned, No Un [facility] [place] DIAGNOSIS AND TREATMENT Name Medical Branch Encounters Start End Encounter Admission Attending Care Care Encounter Source Date/Time Date/Time Type Type Clinicians Facility Department ID 2021-06-21 2021-06-21 Emergency Maira, TRAUMA [id number] Univers 19:10:00 23:04:00 Javier Marie [place] [id number] ity [facility][id number] [facility] [id number] [facility] 014 Branch 2021-06-21 2021-06-21 Emergency X [place] ERT [id number] Univers 18:59:00 18:59:00 ity of [facility] 2019-05-30 2019-05-30 Emergency Alex Azalea [facility] [id number] 16:02:51 17:01:00 [facility] [id number] [place] [id number] [place] [id number] 082019-05-30 2019-05-30 Emergency Alex Azalea [facility] [id number] Univers 16:02:51 17:01:00 Aviva Wing [id number] i ty of [place] [id number] [facility] [id number] [address] Results Test Description Test Time Test Comments Results Result Comments Source GLYCOSYLATED HEMOGLOBIN (A1C) 2021-06-22 02:42:50 Test Item Value Reference Range Interpretation Comme nts HGB A1C (test code = 4548-4) >14.0 4.0-5.7 H CARLY (test code = CARLY) Reference RangesNormal: <5.7%Prediabetes: 5.7 - 6.4%Diabetes: > 6.5% Lab Interpretation (test code = Abnormal 53640-9) [facility]2021-06-22 02:42:50 Test Item Value Reference Range Interpretation Comments HGB A1C (test code = 4548-4) >14.0 4.0-5.7 H CARLY (test code = CARLY) Lab Interpretation (test code = Abnormal 43306-1) [facility] [id number] 01:54:55 Test Item Value Reference Range Interpretation Comments WBC (test code = See_Comment [Automated 6690-2) message] The sy stem which generated this result transmitted reference range : 4.20 - 10.70 10*3/?L. The reference range was not used to interpret this result as normal/abnormal . RBC (test code = See_Comment [Automated 789-8) message] The sy stem which generated this result transmitted reference range : 4.26 - 5.52 10*6/?L. The reference range was not used to interpret this result as normal/abnormal . HGB (test code = 14.4 g/dL 12.2-16.4 718-7) HCT (test code = 42.1 % 38.4-49.3 4544-3) MCV (test code = 85.6 fL 81.7-95.6 787-2) MCH (test code = 29.3 pg 26.1-32.7 785-6) MCHC (test code = 34.2 g/dL 31.2-35.0 786-4) RDW-SD (test code = 37.8 fL 38.5-51.6 L 52316-6) RDW-CV (test code = 12.1 % 12.1-15.4 788-0) PLT (test code = See_Comment L [Automated 777-3) message] The sy stem which generated this result transmitted reference range : 150 - 328 10*3/ ?L. The reference r sienna was not used to interpret this result as normal/abnormal . MPV (test code = 11.9 fL 9.8-13.0 33731-0) NRBC/100 WBC (test See_Comment [Automat ed code = 8590110694) message] The system which generated this result transmitted reference range : 0.0 - 10.0 /100 WBCs. The refer ence range was not u sed to interpret th is result as normal/abnormal . NRBC x10^3 (test code <0.01 See_Comment [Auto mated = 2584080398) message] The s ystem which generated this result transmitted reference range : 10*3/?L. The reference range was not used to interpret this result as normal/abnormal . GRAN MAT (NEUT) % 67.9 % (test code = 770-8) IMM GRAN % (test code 0.40 % = 7694354518) LYMPH % (test code = 24.6 % 736-9) MONO % (test code = 7.0 % 5905-5) EOS % (test code = 0.0 % 713-8) BASO % (test code = 0.1 % 706-2) GRAN MAT x10^3(ANC) 4.59 10*3/uL 1.99-6.95 (test code = 4164495076) IMM GRAN x10^3 (test 0.03 10*3/uL 0.00-0.06 code = 2503662355) LYMPH x10^3 (test code 1.66 10*3/uL 1.09-3.23 = 731-0) MONO x10^3 (test code 0.47 10*3/uL 0.36-1.02 = 742-7) EOS x10^3 (test code = <0.03 0.06-0.53 L 711-2) BASO x10^3 (test code <0.03 0.01-0.09 = 704-7) REACT LYMPHS (test Rare code = 6979498744) Lab Interpretation Abnormal (test code = 33493-9) [facility] WITH [id number] 01:54:55 Test Item Value Reference Range Interpretation Comments WBC (test code = See_Comment [Automated 8690-2) message] The sy stem which generated this result transmitted reference range : 4.20 - 10.70 10*3/?L. The reference range was not used to interpret this result as normal/abnormal . RBC (test code = See_Comment [Automated 789-8) message] The sy stem which generated this result transmitted reference range : 4.26 - 5.52 10*6/?L. The reference range was not used to interpret this result as normal/abnormal . HGB (test code = 14.4 g/dL 12.2-16.4 718-7) HCT (test code = 42.1 % 38.4-49.3 4544-3) MCV (test code = 85.6 fL 81.7-95.6 787-2) MCH (test code = 29.3 pg 26.1-32.7 785-6) MCHC (test code = 34.2 g/dL 31.2-35.0 786-4) RDW-SD (test code = 37.8 fL 38.5-51.6 L 18119-2) RDW-CV (test code = 12.1 % 12.1-15.4 788-0) PLT (test code = See_Comment L [Automated 777-3) message] The sy stem which generated this result transmitted reference range : 150 - 328 10*3/ ?L. The reference r sienna was not used to interpret this result as normal/abnormal . MPV (test code = 11.9 fL 9.8-13.0 96256-0) NRBC/100 WBC (test See_Comment [Automat ed code = 6333078605) message] The system which generated this result transmitted reference range : 0.0 - 10.0 /100 WBCs. The refer ence range was not u sed to interpret th is result as normal/abnormal . NRBC x10^3 (test code <0.01 See_Comment [Auto mated = 0355141626) message] The s ystem which generated this result transmitted reference range : 10*3/?L. The reference range was not used to interpret this result as normal/abnormal . GRAN MAT (NEUT) % 67.9 % (test code = 770-8) IMM GRAN % (test code 0.40 % = 4443069826) LYMPH % (test code = 24.6 % 736-9) MONO % (test code = 7.0 % 5905-5) EOS % (test code = 0.0 % 713-8) BASO % (test code = 0.1 % 706-2) GRAN MAT x10^3(ANC) 4.59 10*3/uL 1.99-6.95 (test code = 7650482623) IMM GRAN x10^3 (test 0.03 10*3/uL 0.00-0.06 code = 0553363314) LYMPH x10^3 (test code 1.66 10*3/uL 1.09-3.23 = 731-0) MONO x10^3 (test code 0.47 10*3/uL 0.36-1.02 = 742-7) EOS x10^3 (test code = <0.03 0.06-0.53 L 711-2) BASO x10^3 (test code <0.03 0.01-0.09 = 704-7) REACT LYMPHS (test Rare code = 8301142331) Lab Interpretation Abnormal (test code = 14058-0) [facility] METABOLIC PANEL (NA, K, CL, CO2, GLUCOSE, BUN, CREATININE, CA)2021-06-22 01:17:05 Test Item Value Reference Range Interpretation Comments NA (test code = 129 mmol/L 135-145 L 9599528729) K (test code = 4.1 mmol/L 3.5-5.0 3654197002) CL (test code = 93 mmol/L 98-108 L 6034551683) CO2 TOTAL (test code = 27 mmol/L 23-31 8822821800) AGAP (test code = 2-16 0459551438) BUN (test code = 7 mg/dL 7-23 3099383464) GLUCOSE (test code = 341 mg/dL 70-110 H 8616353016) CREATININE (test code = 0.76 mg/dL 0.60-1.25 3289212223) CALCIUM (test code = 8.7 mg/dL 8.6-10.6 5373871123) eGFR (test code = mL/min/1.73m2 5383133052) CARLY (test code = CARLY) Association of Glomerular Filtration Rate (GFR) and Staging of Kidney Disease* + --+ --+ ------+| GFR (mL/min/1.73 m2) ?| With Kidney Damage ?| ?Without Kidney Damage+ --------+ --------+ +| ?>90 ?| ?Stage one ?| ? Normal ?+ ---+ ---+ -------+| ?60-89 ?| ?Stage two ?| ? Decreased GFR ? + --+ --+ ------+| ?30-59 ?| ?Stage three ?| ? Stage three ? + --+ --+ ------+| ?15-29 ?| ?Stage four ? | ? Stage four ?+ ---+ ---+ -------+| ?<15 (or dialysis) ? ?| ?Stage five ? | ? Stage five ?+ ---+ ---+ -------+ *Each stage assumes the associated GFR level has been in effect for at least three months. ?Stages 1 to 5, with or without kidney disease, indicate chronic kidney disease. Notes: Determination of stages one and two (with eGFR >59mL/min/1.73 m2) requires estimation of kidney damage for at least three months as defined by structural or functional abnormalities of the kidney, manifested by either:Pathological abnormalities or Markers of kidney damage (including abnormalities in the composition of the blood or urine or abnormalities in imaging tests). Lab Interpretation Abnormal (test code = 01587-5) [facility] METABOLIC PANEL (NA, K, CL, CO2, GLUCOSE, BUN, CREATININE, CA)2021-06-22 01:17:05 Test Item Value Reference Range Interpretation Comments NA (test code = 2140435471) 129 mmol/L 135-145 L K (test code = 0863667681) 4.1 mmol/L 3.5-5.0 CL (test code = 8238112937) 93 mmol/L 98-108 L CO2 TOTAL (test code = 4022506572) 27 mmol/L 23-31 AGAP (test code = 8099837941) 2-16 BUN (test code = 1998613975) 7 mg/dL 7-23 GLUCOSE (test code = 6524894235) 341 mg/dL 70-110 H CREATININE (test code = 0.76 mg/dL 0.60-1.25 9992357040) CALCIUM (test code = 4092290962) 8.7 mg/dL 8.6-10.6 eGFR (test code = 3759062860) mL/min/1.73m2 CARLY (test code = CARLY) Lab Interpretation (test code = Abnormal 91358-0) [facility] NOW RAPID TESTING)2021-06-22 01:15:24 Test Item Value Reference Range Interpretation Comments SARS-CoV-2 Rapid ID NOW Positive Not Detected A (test code = 86135-2) CARLY (test code = CARLY) ID NOW COVID-19 Assay is an isothermal nucleic acid amplification test intended for the qualitative detection of nucleic acid from SARS-CoV-2 viral RNA in nasopharyngeal (NETWORK [employer]ATE) specimens. It is used under Emergency Use Authorization (EUA) by FDA. The limit of detection (LOD) of the assay is 125 Genome Equivalents/mL. A positive result is indicative of the presence of SARS-CoV-2 RNA. ?Clinical correlation with patient history and other diagnostic information is necessary to determine patient infection status. A negative (Not Detected) result does not preclude SARS-CoV-2 infection. In patients with clinical symptoms and other tests that are consistent with SARS-CoV-2 infection, negative results should be treated as presumptive negative and a new specimen should be tested with alternative PCR molecular test. Invalid: Please collect a new specimen for repeat patient testing if clinically indicated. Lab Interpretation Abnormal (test code = 40506-3) [facility] NOW [facility]APID TESTING)2021-06-22 01:15:24 Test Item Value Reference Range Interpretation Comments SARS-CoV-2 Rapid ID NOW (test code = Positive Not Detected A 45004-4) CARLY (test code = CARLY) Lab Interpretation (test code = Abnormal 57609-5) [facility]"
[2021-11-07 02:43] LABS: Absolute Lymphocytes (CBC) 3.4 K/uL (0.7-4.9); Lymphocytes % 47.9 % (15.3-44.8); MPV 9.4 fL (7.6-11.3); RBC Red Blood Cell Count 5.22 M/uL (4.33-5.43)
[2021-11-07 02:47] LABS: Protime INR 0.99
[2021-11-07 03:04] LABS: Barbiturates NEGATIVE (NEGATIVE); Benzodiazepines NEGATIVE (NEGATIVE); Cocaine NEGATIVE (NEGATIVE); METHAMPHETAM NEGATIVE (NEGATIVE); Methadone NEGATIVE (NEGATIVE); Opiates NEGATIVE (NEGATIVE); Phencyclidine NEGATIVE (NEGATIVE); THC Cannibis NEGATIVE (NEGATIVE)
[2021-11-07 03:05] LABS: ALT/SGPT 43 U/L (12-78); Albumin 3.2 g/dL (3.4-5.0); Alkaline Phosphatase 87 U/L (45-117); BUN Blood Urea Nitrogen 11 mg/dL (7-18); Bicarbonate 24 mmol/L (21-32); Bilirubin Direct < 0.1 mg/dL (0-0.2); Bilirubin Total 0.5 mg/dL (0.2-1.0); Creatine Phosphokinase 99 U/L (39-308); Glucose Level 270 mg/dL (74-106); Protein, Total 7.7 g/dL (6.4-8.2); Sodium Level 137 mmol/L (136-145)
[2021-11-07 03:06] LABS: AST/SGOT 23 U/L (15-37); Magnesium 1.9 mg/dL (1.8-2.4); NT PRO-BNP < 5 pg/mL (<125); Potassium 4.3 mmol/L (3.5-5.1)
[2021-11-07] MEDS ORDERED: NA CHLORIDE 0.9% 1,000 ML ONE (03:41)
[2021-11-07 04:27] LABS: Urine Blood Negative (Negative); Urine Glucose 3+ (Negative); Urine Protein Negative (Negative); Urine Specific Gravity 1.025 (1.005-1.030); Urine pH 6.5 (5.0-7.0)
[2021-11-07 04:30] LABS: Urine Appearance CLEAR (Clear); Urine Bilirubin NEGATIVE (Negative); Urine Blood NEGATIVE (Negative); Urine Color YELLOW (Yellow); Urine Glucose 3+ (Negative); Urine Protein NEGATIVE (Negative); Urine Specific Gravity >=1.030 (1.005-1.030); Urine pH 6.5 (5.0-7.0)
[2021-11-07 04:39] LABS: Urine Microscopic Reflex NO UMIC
--- NOTE | 2021-11-07 04:39 | ER ---
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 Hx of mk 'enlarged heart a couple years ago that john went away'. Coronavirus screen: Vaccine status: Patient reports receiving the 1st dose of the Covid vaccine. Ebola Screen: Patient negative for fever greater than or equal to 101.5 degrees Fahrenheit, and additional compatible Ebola Virus Disease symptoms. Initial Sepsis Screen: Does the patient meet any 2 criteria? No. Patient's initial sepsis screen is negative. Does the patient have a suspected source of infection? No. Patient's initial sepsis screen is negative. Risk Assessment: Do you want to hurt yourself or someone else? Patient reports no desire to harm self or others. Onset of symptoms was November 06, 2021 at 22:30. 23:14 Method Of Arrival: Ambulatory 23:14 Acuity: HARESH 3 Triage Assessment: 23:35 General: Appears in no apparent distress. Behavior is cooperative. 23:35 Respiratory: Reports shortness of breath Onset: The symptoms/episode began/occurred the patient has mild shortness of breath. Historical: - Allergies: 11/07 05:30 No Known Allergies; mk - PMHx: 05:30 Diabetes - IDDM; Hypertension; mk - Immunization history:: Adult Immunizations up to date. - Social history:: Smoking status: Reported history of juuling and/or vaping. Screenin/15 23:34 Abuse screen: Denies threats or abuse. Nutritional screening: No deficits noted. Tuberculosis screening: No symptoms or risk factors identified. Fall Risk None identified. Assessment: 23:34 Pain: Complains of pain in chest Pain does not radiate. Pain currently is 8 out of 10 mk on a pain scale. Cardiovascular: Heart tones S1 S2 Capillary refill < 3 seconds JVD is absent Patient's skin is warm and dry. Rhythm is sinus rhythm. Respiratory: Airway is patent Respiratory effort is even, unlabored, Breath sounds are clear. 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 Gait is steady, Speech is normal, Facial symmetry appears normal, Pupils are PERRLA, Pupil Size: 4 mm bilaterally Intact. GI: Abdomen is flat, non-distended, Bowel sounds present X 4 quads. Abd is soft and non tender X 4 quads. : No signs and/or symptoms were reported regarding the genitourinary system. Derm: Skin is intact, is healthy with good turgor, Skin is dry, Skin is pink, warm \T\ dry. Skin temperature is warm. Musculoskeletal: Circulation, motion, and sensation intact. Capillary refill < 3 seconds, in bilateral fingers. toes. Range of motion: intact in all extremities. 11/07 00:34 Reassessment: Patient appears in no apparent distress at this time. No changes from mk previously documented assessment. Patient and/or family updated on plan of care and expected duration. Pain level reassessed. 01:35 Reassessment: Patient appears in no apparent distress at this time. No changes from mk previously documented assessment. Patient and/or family updated on plan of care and expected duration. Pain level reassessed. 02:30 Reassessment: Patient appears in no apparent distress at this time. No changes from mk previously documented assessment. Patient and/or family updated on plan of care and expected duration. Pain level reassessed. 03:29 Reassessment: Patient appears in no apparent distress at this time. No changes from mk previously documented assessment. Patient and/or family updated on plan of care and expected duration. Pain level reassessed. 04:30 Reassessment: Patient appears in no apparent distress at this time. No changes from mk previously documented assessment. Patient and/or family updated on plan of care and expected duration. Pain level reassessed. 05:28 Reassessment: Patient appears in no apparent distress at this time. No changes from mk previously documented assessment. Patient and/or family updated on plan of care and expected duration. Pain level reassessed. Vital Signs: 11/06 23:14 Weight 119 kg; Height 6 ft. 1 in. (185.42 cm); mk 23:14 BP 140 / 89; Pulse 78; Resp 18; Temp 98.1; Pulse Ox 100% on R/A; Height 6 ft. 1 in. (185.42 cm); 11/07 02:30 Pulse 74; Resp 18; Pulse Ox 98% on R/A; mk 03:30 Pulse 74; Resp 18; Pulse Ox 98% on R/A; mk 04:30 BP 141 / 105; Pulse 76; Resp 13; Pulse Ox 98% on R/A; mk 05:29 BP 138 / 85; Pulse 85; Resp 18; Temp 98.4; Pulse Ox 99% on R/A; mk 11/06 23:14 Body Mass Index 34.61 (119.00 kg, 185.42 cm) [place] Coma Score: 02:30 Eye Response: spontaneous(4). Verbal Response: oriented(5). Motor Response: obeys commands(6). Total: 15. 03:30 Eye Response: spontaneous(4). Verbal Response: oriented(5). Motor Response: obeys mk commands(6). Total: 15. 04:30 Eye Response: spontaneous(4). Verbal Response: oriented(5). Motor Response: obeys mk commands(6). Total: 15. 05:29 Eye Response: spontaneous(4). Verbal Response: oriented(5). Motor Response: obeys mk commands(6). Total: 15. ED Course: 11/06 23:03 Patient arrived in ED. wm 23:34 Triage completed. mk 23:35 Arm band placed on. mk 23:35 EKG completed in triage. Results shown to MD. mk 11/07 00:30 Patient has correct armband on for positive identification. Allergy band placed. Fall mk risk band placed. Bed in low position. Call light in reach. Side rails up X 1. 00:30 campus monitor on. Pulse ox on. NIBP on. mk 00:30 Inserted saline lock: 18 gauge in left forearm, using aseptic technique. mk 01:49 Nicholas Benson MD is Attending Physician. mh7 02:10 Rosa Isela Azevedo, RN is Primary Nurse. mk 05:30 No provider procedures requiring assistance completed. IV discontinued, intact, mk bleeding controlled, No redness/swelling at site. Pressure dressing applied. Administered Medications: 03:40 Drug: NS 0.9% 1000 ml Route: IV; Rate: 1000 ml; Site: left forearm; mk 05:32 Follow up: Response: No adverse reaction; IV Status: Completed infusion; IV Intake: mk 1000ml Intake: 05:32 IV: 1000ml; Total: 1000ml. Outcome: 04:38 Discharge ordered by MD. ponce 05:30 Discharged to home 05:30 Condition: stable 05:30 Discharge instructions given to patient, Instructed on discharge instructions, medication usage, Prescriptions given X 1. 05:32 Patient left the ED. Signatures: Nicholas Benson MD MD Latesha King Madeline, RN RN Corrections: (The following items were deleted from the chart) 03:35 11/06 23:14 BP 140 / 89; Pulse 18bpm; Resp 78bpm; Pulse Ox 100% RA; Temp 98.1F; Height mk 6 ft. 1 in.; 11/07 05:31 05:30 PMHx: Diabetes - NIDDM; [facility] 05:31 05:30 PMHx: Seizures; [facility]
--- NOTE | 2021-11-07 04:39 | EDPHYS ---
Physician Documentation [facility] Name: Enriqueta Hearn Age: 26 yrs Sex: Male : 1995 Arrival Date: 11/06/2021 Time: 23:03 Bed 13 Private MD: ED Physician Nicholas Benson HPI: 11/07 02:15 This 26 yrs old Black Male presents to ER via Ambulatory with complaints of Breathing mh7 Difficulty. 02:15 The patient has shortness of breath at rest. Onset: The symptoms/episode began/occurred mh7 last night, at 22:00. Duration: The symptoms are continuous, but are markedly better than the original presentation. The patient's shortness of breath is aggravated by supine position, is alleviated by sitting up. Associated signs and symptoms: Pertinent positives: chest pain, Tightness, wheezing, Pertinent negatives: non-productive cough, productive cough, diaphoresis, dizziness, fever, hemoptysis, loss of consciousness, nausea, numbness in extremities, visual changes, vomiting. Severity of symptoms: At their worst the symptoms were moderate last night, in the emergency department the symptoms have improved markedly. Historical: - Allergies: 05:30 No Known Allergies; mk - PMHx: 05:30 Diabetes - IDDM; Hypertension; mk - Immunization history:: Adult Immunizations up to date. - Social history:: Smoking status: Reported history of juuling and/or vaping. ROS: 02:15 Constitutional: Negative for fever, chills, and weight loss, Eyes: Negative for injury, mh7 pain, redness, and discharge, ENT: Negative for injury, pain, and discharge, Neck: Negative for injury, pain, and swelling, Abdomen/GI: Negative for abdominal pain, nausea, vomiting, diarrhea, and constipation, Back: Negative for injury and pain, : Negative for injury, bleeding, discharge, and swelling, MS/Extremity: Negative for injury and deformity, Skin: Negative for injury, rash, and discoloration, Neuro: Negative for headache, weakness, numbness, tingling, and seizure, Psych: Negative for depression, anxiety, suicide ideation, homicidal ideation, and hallucinations, Allergy/Immunology: Negative for hives, rash, and allergies, Endocrine: Negative for neck swelling, polydipsia, polyuria, polyphagia, and marked weight changes, Hematologic/Lymphatic: Negative for swollen nodes, abnormal bleeding, and unusual bruising. Exam: 02:15 Constitutional: This is a well developed, well nourished patient who is awake, alert, mh7 and in no acute distress. Head/Face: Normocephalic, atraumatic. Eyes: Pupils equal round and reactive to light, extra-ocular motions intact. Lids and lashes normal. Conjunctiva and sclera are non-icteric and not injected. Cornea within normal limits. Periorbital areas with no swelling, redness, or edema. Neck: Trachea midline, no thyromegaly or masses palpated, and no cervical lymphadenopathy. Supple, full range of motion without nuchal rigidity, or vertebral point tenderness. No Meningismus. 02:15 Cardiovascular: Regular rate and rhythm with a normal S1 and S2. No gallops, murmurs, or rubs. Normal PMI, no JVD. No pulse deficits. Respiratory: Lungs have equal breath sounds bilaterally, clear to auscultation and percussion. No rales, rhonchi or wheezes noted. No increased work of breathing, no retractions or nasal flaring. Abdomen/GI: Soft, non-tender, with normal bowel sounds. No distension or tympany. No guarding or rebound. No evidence of tenderness throughout. Back: No spinal tenderness. No costovertebral tenderness. Full range of motion. Skin: Warm, dry with normal turgor. Normal color with no rashes, no lesions, and no evidence of cellulitis. MS/ Extremity: Pulses equal, no cyanosis. Neurovascular intact. Full, normal range of motion. Neuro: Awake and alert, GCS 15, oriented to person, place, time, and situation. Cranial nerves II-XII grossly intact. Motor strength 5/5 in all extremities. Sensory grossly intact. Cerebellar exam normal. Normal gait. Psych: Awake, alert, with orientation to person, place and time. Behavior, mood, and affect are within normal limits. 02:15 Chest/axilla: Inspection: normal, Palpation: tenderness, that is moderate, of the mid-sternal area, that totally reproduces the patient's complaints, Axilla: are normal, Lymph nodes: lymphadenopathy is not appreciated. Vital Signs: 11/06 23:14 Weight 119 kg; Height 6 ft. 1 in. (185.42 cm); mk 23:14 BP 140 / 89; Pulse 78; Resp 18; Temp 98.1; Pulse Ox 100% on R/A; Height 6 ft. 1 in. (185.42 cm); 11/07 02:30 Pulse 74; Resp 18; Pulse Ox 98% on R/A; mk 03:30 Pulse 74; Resp 18; Pulse Ox 98% on R/A; mk 04:30 BP 141 / 105; Pulse 76; Resp 13; Pulse Ox 98% on R/A; mk 05:29 BP 138 / 85; Pulse 85; Resp 18; Temp 98.4; Pulse Ox 99% on R/A; mk 11/06 23:14 Body Mass Index 34.61 (119.00 kg, 185.42 cm) [place] Coma Score: 02:30 Eye Response: spontaneous(4). Verbal Response: oriented(5). Motor Response: obeys mk commands(6). Total: 15. 03:30 Eye Response: spontaneous(4). Verbal Response: oriented(5). Motor Response: obeys mk commands(6). Total: 15. 04:30 Eye Response: spontaneous(4). Verbal Response: oriented(5). Motor Response: obeys mk commands(6). Total: 15. 05:29 Eye Response: spontaneous(4). Verbal Response: oriented(5). Motor Response: obeys mk commands(6). Total: 15. MDM: 04:36 Differential diagnosis: Anemia Anxiety Reaction asthma, Bronchitis CHF exacerbation, mh7 Myocardial Infarction pneumonia, Pneumothorax Psychogenic pulmonary edema, Pulmonary Embolism reactive airway disease. Data reviewed: vital signs, nurses notes, old medical records, lab test result(s), cardiac enzymes, CBC, electrolytes, urinalysis, urine drug screen, EKG, radiologic studies, plain films. Data interpreted: Pulse oximetry: on room air is 99 %. Interpretation: normal. Counseling: I had a detailed discussion with the patient and/or guardian regarding: the historical points, exam findings, and any diagnostic results supporting the discharge/admit diagnosis, the presence of at least one elevated blood pressure reading (>120/80) during this emergency department visit, lab results, radiology results, the need for outpatient follow up, to return to the emergency department if symptoms worsen or persist or if there are any questions or concerns that arise at home. Response to treatment: the patient's symptoms have resolved after treatment, the patient's blood pressure is in an acceptable range, mental status has returned to baseline, the patient no longer shows bradycardia, the patient is not short of breath, the patient is not tachycardic, the patient's pain is gone, the patient's temperature has normalized, the patient is now symptom free, patient is well hydrated. 04:38 Patient medically screened. [facility] 11/07 02:08 Order name: Basic Metabolic Panel [facility] 11/07 02:08 Order name: CBC with Diff [facility] 11/07 02:08 Order name: LFT's [facility] 11/07 02:08 Order name: Magnesium [facility] 11/07 02:08 Order name: NT PRO-BNP [facility] 11/07 02:08 Order name: PT-INR [facility] 11/07 02:08 Order name: Troponin HS [facility] 11/07 02:08 Order name: CPK [facility] 11/07 02:08 Order name: Urine Drug Screen [facility] 11/07 02:44 Order name: CBC with Automated Diff; Complete Time: 02:51 [facility] 11/07 02:48 Order name: Protime (+INR); Complete Time: 04:07 [facility] 11/07 03:04 Order name: Urine Drug Screen; Complete Time: 03:18 [facility] 11/07 03:06 Order name: Basic Metabolic Panel; Complete Time: 03:18 [facility] 11/07 02:08 Order name: EKG; Complete Time: 05:23 [facility] 11/07 02:08 Order name: Cardiac monitoring; Complete Time: 02:10 [facility] 11/07 02:08 Order name: EKG - Nurse/Tech; Complete Time: 02:10 [facility] 11/07 02:08 Order name: IV Saline Lock; Complete Time: 02:10 [facility] 11/07 03:06 Order name: Liver (Hepatic) Function; Complete Time: 03:18 [facility] 11/07 03:06 Order name: Creatine Phosphokinase; Complete Time: 03:18 [facility] 11/07 03:06 Order name: Troponin High Sensitivity; Complete Time: 03:18 [facility] 11/07 03:06 Order name: NT PRO-BNP; Complete Time: 03:18 [facility] 11/07 03:06 Order name: Magnesium; Complete Time: 03:18 [facility] 11/07 03:20 Order name: D-Dimer [facility] 11/07 03:20 Order name: SARS-COV-2 RT PCR; Complete Time: 03:30 [facility] 11/07 04:00 Order name: D-Dimer; Complete Time: 04:07 [facility] 11/07 04:27 Order name: Urine Dipstick-Ancillary; Complete Time: 04:32 [facility] 11/07 04:39 Order name: Urinalysis; Complete Time: 04:40 [facility] 11/07 02:08 Order name: Labs collected and sent; Complete Time: 02:10 [facility] 11/07 02:08 Order name: O2 Per Protocol; Complete Time: 02:10 [facility] 11/07 02:08 Order name: O2 Sat Monitoring; Complete Time: 02:10 [facility] 11/07 03:20 Order name: Urine Dipstick-Ancillary (obtain specimen); Complete Time: 04:11 [facility] Administered Medications: 03:40 Drug: NS 0.9% 1000 ml Route: IV; Rate: 1000 ml; Site: left forearm; 05:32 Follow up: Response: No adverse reaction; IV Status: Completed infusion; IV Intake: mk 1000ml Disposition Summary: 11/07/21 04:38 Discharge Ordered Location: Home [facility] Problem: new [facility] Symptoms: have improved [facility] Condition: Stable [facility] Diagnosis - Dyspnea, unspecified [facility] - Other specified diabetes mellitus with hyperglycemia [facility] Followup: [facility] - With: Private Physician - When: 1 - 2 days - Reason: Worsening of condition, Recheck today's complaints, Continuance of care, Re-evaluation by your physician Discharge Instructions: - Discharge Summary Sheet [facility] - Shortness of Breath, Adult, [id number] [facility] - Diabetes Mellitus and Nutrition, Adult [facility] - Hyperglycemia, [id number] [facility] - Form - Return To Work [facility] Forms: - Medication Reconciliation Form [facility] - Thank You Letter [facility] - Antibiotic Education [facility] - Prescription Opioid Use [facility] Prescriptions: - Metformin 500 mg Oral Tablet - take 1 tablet by ORAL route 2 times per day As needed Then take 1 tablet with [facility] morning meals AND evening meals; 30 tablet; Refills: 0, Product Selection Permitted Signatures: [facility] Stephens MD MD [facility] Rosa Isela Azevedo RN CRIS peterson Corrections: (The following items were deleted from the chart) 05:31 05:30 PMHx: Diabetes - NIDDM; kristen peterson 05:31 05:30 PMHx: Seizures; kristen peterson
[2021-11-07 05:51] VITALS: BP 138/85; TEMP 98.4; O2SAT 99
--- NOTE | 2021-11-07 11:34 | RAD REPORT ---
EXAM DESCRIPTION: RAD - Chest Single View - 11/07/2021 4:29 am CLINICAL HISTORY: CHEST PAIN; SOB Chest pain. COMPARISON: Chest Pa And Lat (2 Views) dated 12/30/2019; Chest Single View dated 02/26/2018; CHEST PA AN D LAT 2 VIEW dated 11/12/2015 FINDINGS: Portable technique limits examination quality. The lungs are grossly clear. The heart is normal in size. No displaced fractures. IMPRESSION: No acute intrathoracic process suspected.
--- NOTE | 2021-11-10 07:35 | EKG ---
Test Date: 2021-11-06 Test Time: 23:33:00 Electrophonic Engineer: MEASUREMENT RESULTS: Intervals: Rate: 74 ID: [id number] QRSD: 108 QT: 386 QTc: 428 Bowman: P: 39 ID: [id number] QRS: 66 T: 7 INTERPRETIVE STATEMENTS: Normal sinus rhythm Nonspecific T wave abnormality Abnormal ECG Compared to ECG 11/06/2021 23:25:37 T-wave abnormality now present Myocardial infarct finding no longer present Electronically Signed On 11-10-21 07:27:05 [employer] by Balbir Wilkinson
== END 2021-11-07 05:32 | disposition home or self-care (01) ==
LOC: ER 23:00
DX: R06.00 Dyspnea, unspecified (principal); E13.65 Other specified diabetes mellitus with hyperglycemia; Z20.822 Contact with and (suspected) exposure to COVID-19
CPT/HCPCS: 36415; 71045; 80048; 80076; 80307; 81003; 82550; 83735; 83880; 84484; 85025; 85379; 85610; 93005; 96360; 96361; 99284; J7030; U0003

== ENCOUNTER 2022-07-19 12:58 | Emergency (ER) | payer SELFPAY ==
--- OUTSIDE RECORDS SUMMARY | 2022-07-19 13:05 | XMS REPORT | Continuity of Care Document ---
:1995 Author Organization [facility] t Address [address] [place] [address] Care Team Providers Name Role Phone Pcp, Patient Does Not Have A Primary Care Physician [id number] Javier Rao MD Attending Clinician Azalea Solomon Attending Clinician Problems Condition Condition Condition Status Onset Resolution Last Treating Co mments Source Name Details Category Date Date Treatment Clinician Date No known No known Disease Unive rs active active ity of problems problems [facility] Allergies, Adverse Reactions, Alerts Allergy Allergy Status Severity Reaction(s) Onset Inactive Treating Comm ents Source Name Type Date Date Clinician NO KNOWN Drug Active Univers ALLERGIE Class ity of S [facility] Social History Social Habit Start Date Stop Date Quantity Comments Source Exposure to Yes [facility] SARS-CoV-2 (event) Medica l Branch Sex Assigned At [birth year] [facility] 00:00:00 00:00:00 [facility] Smoking Status Start Date Stop Date Source Unknown if ever smoked [facility] Medications Ordered Filled Start Stop Current Ordering Indication Dosage Frequency Signature Comments Components Source Medication Medication Date Date Medication? Clinician (SIG) Name Name insulin 2020- No 10U 10 Units, Univ ers regular 06-22 Subcutaneo ity o f human 04:00: 04:00 , [facility], [place] (HUMULIN R) 00 :00 1 dose, Medic al injection [facility] Branch 10 Units 06/21/21 at 2300, JEMIMA casirivimab 2020- No 1200mg 1,200 mg, Univers -imdevimab 06-22 IV ity of 1200 mg in 04:00: 03:40 Infusion, [place] 60 mL NS 00 :00 ONCE, Medical MINI-BAG Administer Branc h over 20 Minutes, 06/21/21 at 2300, For 1 dose
Ad batch unit treater as an IV infusion via pump or gravity through an intravenou s line containing a sterile, in-line or add-on 0.2-micron polyethers ulfone (PES) filter. Stable 36 hours refrigerat ed; 4 hours at room temperatur e.
insulin 2020- No 10U 10 Units, [facility] ers regular 06-22 Subcutaneo ity o f human 04:00: 04:00 , ONCE, [place] (HUMULIN R) 00 :00 1 dose, Medic al injection [facility] 10 Units 06/21/21 at 2300, JEMIMA casirivimab 2020- No 1200mg 1,200 mg, Univers -imdevimab 06-22 IV ity of 1200 mg in 04:00: 03:40 Infusion, [place] 60 mL NS 00 :00 ONCE, Medical MINI-BAG Administer Branc h over 20 Minutes, 06/21/21 at 2300, For 1 dose
Ad batch unit treater as an IV infusion via pump or gravity through an intravenou s line containing a sterile, in-line or add-on 0.2-micron polyethers ulfone (PES) filter. Stable 36 hours refrigerat ed; 4 hours at room temperatur e.
METFORMIN 2020- No Take by [facility] ers HCL 06-22 mouth. ity of (METFORMIN 03:49: 00:00 [place] ORAL) 43 :00 [facility] METFORMIN 2020- No Take by [facility] ers HCL 06-22 mouth. ity of (METFORMIN 03:49: 00:00 [place] ORAL) 43 :00 [facility] acetaminoph 2020- No 1000mg 1,000 mg, Univers en 06-22 Oral, ity of (TYLENOL) 00:45: 00:53 [place]CE[place] dose, Mon Medical 1,000 mg 06/21/21 at [facility] h 1945, JEMIMA acetaminoph 2020- No 1000mg 1,000 mg, Univers en 06-22 Oral, ity of (TYLENOL) 00:45: 00:53 [place]CE[place] dose, Mon Medical 1,000 mg 06/21/21 at [facility] 1945, JEMIMA albuterol Yes [id number] 2{puff} Inhale 2 Univers 90 8-30 Puffs ity of mcg/actuati 00:00: every 4 [place] as on inhaler 00 (four) Medical hours as Branch needed for Wheezing or Shortness of Breath. benzonatate Yes [id number] 100mg Take 1 Univers 100 mg 8-30 capsule by ity of capsule 00:00: mouth (three) Medical times Branch daily as needed for Cough. metFORMIN Yes [id number] 1000mg Take 1 Univers 1,000 mg 8-30 tablet by ity of tablet 00:00: mouth 2 (two) Medical times Branch daily with meals. albuterol Yes [id number] 2{puff} Inhale 2 Univers 90 8-30 Puffs ity of mcg/actuati 00:00: every 4 [place] as on inhaler 00 (four) Medical hours as Branch needed for Wheezing or Shortness of Breath. benzonatate Yes [id number] 100mg Take 1 Univers 100 mg 8-30 capsule by ity of capsule 00:00: mouth 3 (three) Medical times Branch daily as needed for Cough. metFORMIN Yes [id number] 1000mg Take 1 Univers 1,000 mg 8-30 tablet by ity of tablet 00:00: mouth 2 (two) Medical times Branch daily with meals. ibuprofen Yes [id number] 600mg Take 1 Univers 600 mg 8-08 [id number] tablet by ity of tablet 00:00: mouth [place] 00 every 6 Medical (six) Branch hours as needed for Pain (scale 4-6). ibuprofen Yes [id number] 600mg Take 1 Univers 600 mg 8-08 [id number] tablet by ity of tablet 00:00: mouth [place] [address] every 6 Medical (six) Branch hours as needed for Pain (scale 4-6). ibuprofen Yes [id number] 600mg Take 1 Univers 600 mg 8-08 [id number] tablet by ity of tablet 00:00: mouth [place] [address] every 6 Medical (six) Branch hours as needed for Pain (scale 4-6). GLYBURIDE Yes Take by Unive rs ORAL 7-12 mouth. ity of 04:06: [address] LISINOPRIL Yes Take by Univ ers ORAL 7-12 mouth. ity of 04:06: [address] METFORMIN Yes Take by Unive rs HCL 7-12 mouth. ity of (METFORMIN 04:06: [address] GLYBURIDE Yes Take by Unive rs ORAL 7-12 mouth. ity of 04:06: [address] LISINOPRIL Yes Take by [facility] ers ORAL 7-12 mouth. ity of 04:06: [address] GLYBURIDE Yes Take by [facility] rs ORAL 7-12 mouth. ity of 04:06: [address] LISINOPRIL Yes Take by [facility] ers ORAL 7-12 mouth. ity of 04:06: [address] Vital Signs Vital Name Observation Time Observation Value Comments Source Systolic blood 2021-06-22 03:00:00 119 [facility]Hg[facility] Diastolic blood 2021-06-22 03:00:00 77 mm[Hg] [facility] Heart rate 2021-06-22 03:00:00 83 /min [facility] Body temperature 2021-06-22 03:00:00 37.28 [facility] Respiratory rate 2021-06-22 03:00:00 18 /min [facility] Oxygen saturation in 2021-06-22 03:00:00 96 /min [facility] Arterial blood by [facility] Pulse oximetry Branch Body weight 2021-06-22 00:09:00 124.739 kg [facility] BMI 2021-06-22 00:09:00 35.31 kg/m2 [facility] [place] [facility] Systolic blood 2019-05-30 21:01:00 141 mm[Hg] Univer sity of pressure [place] [facility] Diastolic blood 2019-05-30 21:01:00 84 mm[Hg] Unive rsity of pressure [facility] Heart rate 2019-05-30 21:01:00 84 /min Universi ty of [facility] Respiratory rate 2019-05-30 21:01:00 18 /[facility] height 2019-05-30 21:01:00 188 cm [facility] [place] [facility] Body weight 2019-05-30 21:01:00 129.275 kg Universi ty of [facility] BMI 2019-05-30 21:01:00 36.59 kg/m2 Universi ty of [facility] Oxygen saturation in 2019-05-30 21:01:00 98 /min University of Arterial blood by [place] [facility] Pulse oximetry Branch Systolic blood 2019-05-30 21:01:00 141 mm[Hg] Univer sity of pressure [facility] Diastolic blood 2019-05-30 21:01:00 84 mm[Hg] Unive rsity of pressure [facility] Heart rate 2019-05-30 21:01:00 84 /min Universi ty of [facility] Respiratory rate 2019-05-30 21:01:00 18 /min Univ ersity [facility] Body height 2019-05-30 21:01:00 188 cm [facility] [place] [facility] Body weight 2019-05-30 21:01:00 129.275 kg [facility] [place] [facility] [place] BMI 2019-05-30 21:01:00 36.59 kg/m2 Universi ty [facility] Oxygen saturation in 2019-05-30 21:01:00 98 /min University of Arterial blood by [employer] Pulse oximetry Branch Procedures Procedure Date / Time Performing Clinician Source Performed XR CHEST 1 VW 2021-06-22 02:44:13 Javier Rao [facility] [place] [facility] CBC WITH DIFF 2021-06-22 00:53:00 Javier Rao [facility] [place] [facility] GLYCOSYLATED HEMOGLOBIN 2021-06-22 00:53:00 Javier Rao [facility] (A1C) [facility] COVID-19 (ID NOW RAPID 2021-06-22 00:53:00 Javier Rao [facility] TESTING) Medical Branch BASIC METABOLIC PANEL 2021-06-22 00:52:00 [facility] (NA, K, CL, CO2, Medical Branch GLUCOSE, BUN, CREATININE, CA) CONSENT/REFUSAL FOR 2021-06-22 00:09:58 Doctor Unassigned, No [facility]REAT[facility] Name Medical Branch NOTICE OF PRIVACY 2019-05-30 20:50:54 Doctor Unassigned, No Univ [facility] PRACTICES Name Medical Branch CONSENT/REFUSAL FOR 2019-05-30 20:50:26 Doctor Unassigned, No Un [facility] [place] DIAGNOSIS AND TREATMENT Name Medical Branch Encounters Start End Encounter Admission Attending Care Care Encounter Source Date/Time Date/Time Type Type Clinicians Facility Department ID 2021-06-21 2021-06-21 Emergency Maira, TRAUMA [id number] Univers 19:10:00 23:04:00 Jvaier Marie DEARY [id number] ity [id number] [facility] [id number] [place] [address] Branch 2021-06-21 2021-06-21 Emergency X [facility] ERT [id number] Univers 18:59:00 18:59:00 ity of [facility] 2019-05-30 2019-05-30 Emergency Azalea Johnson [facility] [id number] 16:02:51 17:01:00 [facility] [id number] [place] [id number] [place] [id number] [facility] 2019-05-30 2019-05-30 Emergency Azalea Johnson [facility] [id number] Univers 16:02:51 17:01:00 [facility] [id number] i ty of [place] [id number] [facility] [id number] [address] Results Test Description Test Time Test Comments Results Result Comments Source GLYCOSYLATED HEMOGLOBIN (A1C) 2021-06-22 02:42:50 Test Item Value Reference Range Interpretation Comme nts HGB A1C (test code = 4548-4) >14.0 4.0-5.7 H CARLY (test code = CARLY) Reference RangesNormal: <5.7%Prediabetes: 5.7 - 6.4%Diabetes: > 6.5% Lab Interpretation (test code = Abnormal 89757-8) [facility] [place] [facility]2021-06-22 02:42:50 Test Item Value Reference Range Interpretation Comments HGB A1C (test code = 4548-4) >14.0 4.0-5.7 H CARLY (test code = CARLY) Lab Interpretation (test code = Abnormal 76845-1) [facility] [place] [facility] [id number] 01:54:55 Test Item Value Reference Range Interpretation Comments WBC (test code = See_Comment [Automated 6390-2) message] The sy stem which generated this result transmitted reference range : 4.20 - 10.70 10*3/?L. The reference range was not used to interpret this result as normal/abnormal . RBC (test code = See_Comment [Automated 489-8) message] The sy stem which generated this [...] (test code = 37.8 fL 38.5-51.6 L 88185-9) RDW-CV (test code = 12.1 % 12.1-15.4 788-0) PLT (test code = See_Comment L [Automated 777-3) message] The sy stem which generated this result transmitted reference range : 150 - 328 10*3/ ?L. The reference r sienna was not used to interpret this result as normal/abnormal . MPV (test code = 11.9 fL 9.8-13.0 41810-7) NRBC/100 WBC (test See_Comment [Automat ed code = 3383886643) message] The system which generated this result transmitted reference range : 0.0 - 10.0 /100 WBCs. The refer ence range was not u sed to interpret th is result as normal/abnormal . NRBC x10^3 (test code <0.01 See_Comment [Auto mated = 7805713454) message] The s ystem which generated this result transmitted reference range : 10*3/?L. The reference range was not used to interpret this result as normal/abnormal . GRAN MAT (NEUT) % 67.9 % (test code = 770-8) IMM GRAN % (test code 0.40 % = 2623686319) LYMPH % (test code = 24.6 % 736-9) MONO % (test code = 7.0 % 5905-5) EOS % (test code = 0.0 % 713-8) BASO % (test code = 0.1 % 706-2) GRAN MAT x10^3(ANC) 4.59 10*3/uL 1.99-6.95 (test code = 7068005733) IMM GRAN x10^3 (test 0.03 10*3/uL 0.00-0.06 code = 7315049036) LYMPH x10^3 (test code 1.66 10*3/uL 1.09-3.23 = 731-0) MONO x10^3 (test code 0.47 10*3/uL 0.36-1.02 = 742-7) EOS x10^3 (test code = <0.03 0.06-0.53 L 711-2) BASO x10^3 (test code <0.03 0.01-0.09 = 704-7) REACT LYMPHS (test Rare code = 8398707962) Lab Interpretation Abnormal (test code = 77530-2) [facility] WITH [id number] 01:54:55 Test Item Value Reference Range Interpretation [...] (test code = 37.8 fL 38.5-51.6 L 20804-8) RDW-CV (test code = 12.1 % 12.1-15.4 788-0) PLT (test code = See_Comment L [Automated 777-3) message] The sy stem which generated this result transmitted reference range : 150 - 328 10*3/ ?L. The reference r sienna was not used to interpret this result as normal/abnormal . MPV (test code = 11.9 fL 9.8-13.0 45700-2) NRBC/100 WBC (test See_Comment [Automat ed code = 1343934955) message] The system which generated this result transmitted reference range : 0.0 - 10.0 /100 WBCs. The refer ence range was not u sed to interpret th is result as normal/abnormal . NRBC x10^3 (test code <0.01 See_Comment [Auto mated = 2717783592) message] The s ystem which generated this result transmitted reference range : 10*3/?L. The reference range was not used to interpret this result as normal/abnormal . GRAN MAT (NEUT) % 67.9 % (test code = 770-8) IMM GRAN % (test code 0.40 % = 9493400869) LYMPH % (test code = 24.6 % 736-9) MONO % (test code = 7.0 % 5905-5) EOS % (test code = 0.0 % 713-8) BASO % (test code = 0.1 % 706-2) GRAN MAT x10^3(ANC) 4.59 10*3/uL 1.99-6.95 (test code = 7587107587) IMM GRAN x10^3 (test 0.03 10*3/uL 0.00-0.06 code = 1383803121) LYMPH x10^3 (test code 1.66 10*3/uL 1.09-3.23 = 731-0) MONO x10^3 (test code 0.47 10*3/uL 0.36-1.02 = 742-7) EOS x10^3 (test code = <0.03 0.06-0.53 L 711-2) BASO x10^3 (test code <0.03 0.01-0.09 = 704-7) REACT LYMPHS (test Rare code = 9800700785) Lab Interpretation Abnormal (test code = 18954-1) [facility] METABOLIC PANEL (NA, K, CL, CO2, GLUCOSE, BUN, CREATININE, CA)2021-06-22 01:17:05 Test Item Value Reference Range Interpretation Comments NA (test code = 129 mmol/L 135-145 L 6313512953) K (test code = 4.1 mmol/L 3.5-5.0 9949029373) CL (test code = 93 mmol/L 98-108 L 7710598919) CO2 TOTAL (test code = 27 mmol/L 23-31 9621072699) AGAP (test code = 2-16 6599038501) BUN (test code = 7 mg/dL 7-23 5063883047) GLUCOSE (test code = 341 mg/dL 70-110 H 7557655814) CREATININE (test code = 0.76 mg/dL 0.60-1.25 9109626531) CALCIUM (test code = 8.7 mg/dL 8.6-10.6 3835679104) eGFR (test code = mL/min/1.73m2 8551314495) CARLY (test code = CARLY) Association of [...] tests). Lab Interpretation Abnormal (test code = 76741-6) [facility] [place] [facility] (NA, K, CL, CO2, GLUCOSE, BUN, CREATININE, CA)2021-06-22 01:17:05 Test Item Value Reference Range Interpretation Comments NA (test code = 0567130756) 129 mmol/L 135-145 L K (test code = 9466489452) 4.1 mmol/L 3.5-5.0 CL (test code = 8917160740) 93 mmol/L 98-108 L CO2 TOTAL (test code = 4331492685) 27 mmol/L 23-31 AGAP (test code = 7137085881) 2-16 BUN (test code = 8445532375) 7 mg/dL 7-23 GLUCOSE (test code = 1245737766) 341 mg/dL 70-110 H CREATININE (test code = 0.76 mg/dL 0.60-1.25 9573852402) CALCIUM (test code = 4347804867) 8.7 mg/dL 8.6-10.6 eGFR (test code = 4281264584) mL/min/1.73m2 CARLY (test code = CARLY) Lab Interpretation (test code = Abnormal 11354-3) [facility] [place] [facility]ID NOW RAPID TESTING)2021-06-22 01:15:24 Test Item Value Reference Range Interpretation Comments SARS-CoV-2 Rapid ID NOW Positive Not Detected A (test code = 02481-5) CARLY (test code = CARLY) ID NOW COVID-19 Assay is an isothermal nucleic acid amplification test intended for the qualitative detection of nucleic acid from SARS-CoV-2 viral RNA in nasopharyngeal (EGG TESTER) specimens. It is used under Emergency Use [...] indicated. Lab Interpretation Abnormal (test code = 72090-9) [facility] [place] [facility]ID NOW RAPID TESTING)2021-06-22 01:15:24 Test Item Value Reference Range Interpretation Comments SARS-CoV-2 Rapid ID NOW (test code = Positive Not Detected A 09028-8) CARLY (test code = CARLY) Lab Interpretation (test code = Abnormal 82832-7) [facility] [place] [facility]"
--- NOTE | 2022-07-19 14:09 | EDPHYS ---
Physician Documentation [facility] Name: Enriqueta Hearn Age: 26 yrs Sex: Male : 1995 Arrival Date: 07/19/2022 Time: 12:59 Bed DIS1 Private MD: ED Physician Andre Shelley HPI: 07/19 13:30 This 26 yrs old Black Male presents to ER via Ambulatory with complaints of High Blood jh7 Sugar, Medical Clearance. 13:30 Pt reports that he was recently sent home from work for hyperglycemia. States that he jh7 was out of meds then, but is now on Metformin. Need a release to return to work.. Historical: - Allergies: 13:30 No Known Allergies; aa5 - PMHx: 13:30 Diabetes - IDDM; Hypertension; aa5 - Immunization history:: Adult Immunizations unknown. - Social history:: Smoking status: Patient denies any tobacco usage or history of. ROS: 13:30 Constitutional: Negative for fever, chills, and weight loss, Eyes: Negative for injury, jh7 pain, redness, and discharge, Cardiovascular: Negative for chest pain, palpitations, and edema, Respiratory: Negative for shortness of breath, cough, wheezing, and pleuritic chest pain, Abdomen/GI: Negative for abdominal pain, nausea, vomiting, diarrhea, and constipation, Back: Negative for injury and pain, MS/Extremity: Negative for injury and deformity, Skin: Negative for injury, rash, and discoloration, Neuro: Negative for headache, weakness, numbness, tingling, and seizure. 13:30 All other systems are negative. Exam: 13:30 Constitutional: This is a well developed, well nourished patient who is awake, alert, jh7 and in no acute distress. Head/Face: Normocephalic, atraumatic. Eyes: Pupils equal round and reactive to light, extra-ocular motions intact. Lids and lashes normal. Conjunctiva and sclera are non-icteric and not injected. Cornea within normal limits. Periorbital areas with no swelling, redness, or edema. Cardiovascular: Regular rate and rhythm with a normal S1 and S2. No gallops, murmurs, or rubs. Normal PMI, no JVD. No pulse deficits. Respiratory: Lungs have equal breath sounds bilaterally, clear to auscultation and percussion. No rales, rhonchi or wheezes noted. No increased work of breathing, no retractions or nasal flaring. Abdomen/GI: Soft, non-tender, with normal bowel sounds. No distension or tympany. No guarding or rebound. No evidence of tenderness throughout. Back: No spinal tenderness. No costovertebral tenderness. Full range of motion. Skin: Warm, dry with normal turgor. Normal color with no rashes, no lesions, and no evidence of cellulitis. MS/ Extremity: Pulses equal, no cyanosis. Neurovascular intact. Full, normal range of motion. Neuro: Awake and alert, GCS 15, oriented to person, place, time, and situation. Motor strength 5/5 in all extremities. Sensory grossly intact. Normal gait. Vital Signs: 13:28 BP 126 / 79; Pulse 85; Resp 18 S; Temp 98.2(TE); Pulse Ox 99% on R/A; Weight 115.67 kg aa5 (R); Height 6 ft. 1 in. (185.42 cm) (R); 13:28 Body Mass Index 33.64 (115.67 kg, 185.42 cm) aa5 MDM: 13:21 Patient medically screened. [facility] 13:45 Differential diagnosis: hyperglycemia. Data reviewed: vital signs, nurses notes. Data [facility] interpreted: Pulse oximetry: is 99 %. Interpretation: normal. Counseling: I had a detailed discussion with the patient and/or guardian regarding: the historical points, exam findings, and any diagnostic results supporting the discharge/admit diagnosis, to return to the emergency department if symptoms worsen or persist or if there are any questions or concerns that arise at home. ED course: Work note provided. 07/19 13:40 Order name: Blood Glucose Level; Complete Time: 14:40 [facility] 07/19 14:19 Order name: Glucose, Ancillary Testing; Complete Time: 15:43 EDMS Administered Medications: 13:40 CANCELLED (Patient Refused): NS 0.9% 1000 ml IV at 1 bolus Per protocol; 1000 mL bolus [facility] Disposition Summary: 07/19/22 14:08 Discharge Ordered Location: Home [facility] Problem: new [facility] Symptoms: have improved [facility] Condition: Stable [facility] Diagnosis - Hyperglycemia, unspecified [facility] Followup: [facility] - With: Private Physician - When: 2 - 3 days - Reason: Recheck today's complaints Discharge Instructions: - Discharge Summary Sheet [facility] - Hyperglycemia [facility] - Blood Glucose Monitoring, Adult [facility] Forms: - Medication Reconciliation Form [facility] - Thank You Letter [facility] Signatures: Dispatcher Lynn Meadows, RN RN aa5 Cony Marcus, SAFETY INVESTIGATOR SAFETY INVESTIGATOR [facility] Corrections: (The following items were deleted from the chart) 13:39 13:27 Labs collected and sent ordered. [place] [address] 13:40 13:27 NS 0.9% 1000 ml IV at 1 bolus Per protocol; 1000 mL bolus ordered. [place] [address] 13:40 13:27 IV Saline Lock ordered. [place] [address] 13:40 13:27 Accucheck ordered. [place] [address] 14:06 13:28 COMPREHENSIVE METABOLIC PANEL+C.LAB.BRZ ordered. EDMS EDMS 14:06 13:28 LIPASE+C.LAB.BRZ ordered. EDMS EDMS 14:06 13:28 ACETONE, SERUM+C.LAB.BRZ ordered. EDMS EDMS 14:06 13:28 MAGNESIUM+C.LAB.BRZ ordered. EDMS EDMS 14:06 13:28 PHOSPHORUS+C.LAB.BRZ ordered. EDMS EDMS 14:07 13:28 CBC+H.LAB.BRZ ordered. EDMS EDMS 14:07 13:28 UA MICROSCOPIC+U.LAB.BRZ ordered. EDMS EDMS
--- NOTE | 2022-07-19 14:09 | ER ---
Nurse's Notes [facility] Name: Enriqueta Hearn Age: 26 yrs Sex: Male : 1995 Arrival Date: 07/19/2022 Time: 12:59 Bed DIS1 Private MD: Diagnosis: Hyperglycemia, unspecified Presentation: 07/19 13:28 Chief complaint: Patient states: "I went home early from work on Monday and they told aa5 me I need a release to go back". Pt reports he's been taking his diabetes medication and glucose has improved. Coronavirus screen: At this time, the client does not indicate any symptoms associated with coronavirus-19. Ebola Screen: Patient denies travel to an Ebola-affected area in the 21 days before illness onset. Initial Sepsis Screen: Does the patient meet any 2 criteria? No. Patient's initial sepsis screen is negative. Does the patient have a suspected source of infection? No. Patient's initial sepsis screen is negative. Risk Assessment: Do you want to hurt yourself or someone else? Patient reports no desire to harm self or others. Onset of symptoms was June 2022. 13:28 Acuity: HARESH 4 aa5 13:28 Method Of Arrival: Ambulatory aa5 Historical: - Allergies: 13:30 No Known Allergies; aa5 - PMHx: 13:30 Diabetes - IDDM; Hypertension; aa5 - Immunization history:: Adult Immunizations unknown. - Social history:: Smoking status: Patient denies any tobacco usage or history of. Vital Signs: 13:28 BP 126 / 79; Pulse 85; Resp 18 S; Temp 98.2(TE); Pulse Ox 99% on R/A; Weight 115.67 kg aa5 (R); Height 6 ft. 1 in. (185.42 cm) (R); 13:28 Body Mass Index 33.64 (115.67 kg, 185.42 cm) aa5 ED Course: 12:59 Patient arrived in ED. am2 13:19 [facility] jh[facility] 13:19 Andre Shelley MD is Attending Physician. 7 13:28 Arm band placed on. aa5 13:30 Triage completed. aa5 14:32 Kandace Fan, CRIS is Primary Nurse. hb Administered Medications: 13:40 CANCELLED (Patient Refused): NS 0.9% 1000 ml IV at 1 bolus Per protocol; 1000 mL bolus 7 Outcome: 14:08 Discharge ordered by MD. blum 14:49 Patient left the ED. 7 Signatures: Lynn Koroma, RN RN aa5 Kandace Fan RN RN Minal Real am2 Indu Sam, RN RN bm7 Cony Marcus FNP FNP [facility]
== END 2022-07-19 14:49 | disposition home or self-care (01) ==
LOC: ER 12:58
DX: E11.65 Type 2 diabetes mellitus with hyperglycemia (principal); I10 Essential (primary) hypertension
CPT/HCPCS: 82947; 99281

== ENCOUNTER 2024-04-24 22:44 | Emergency (ER) | payer SELFPAY ==
--- OUTSIDE RECORDS SUMMARY | 2024-04-24 22:46 | XMS REPORT | Continuity of Care Document ---
Author Name Unknown Address [address] [facility] [address] [place] [address] [facility] thconnect Address [address] [facility] [address] [place] [address] Care Team Providers Care Power Plant Manager Name Role Phone Pcp, Patient Does Not Have A Primary Care Physic stacy TRACEY SANDOVAL Attending Clinician TRACEY [place]roncos[place] Attending Clinician Javier Avery MD Attending Clinician [phone] Azalea Solomon Attending Clinician [phone] Problems Condition Name Condition Details Condition Category Status Onset Date Resolution Date Last Treatment Date Treating Clinician Comments Source No known active problems No known active problems Disease [facility] Allergies, Adverse Reactions, Alerts Allergy Name Allergy Type Status Severity Reaction(s) Onset Date Inactive Date Treating Clinician Comments Source NO KNOWN ALLERGIE S Drug Class Active [facility] Social History Social Habit Start Date Stop Date Quantity Comments Source Exposure to SARS-CoV-2 (event) Yes [facility] Sexual orientation U [facility] Sex assigned at 1995 00:00:00 1995 00:00:00 [facility] Smoking Status Start Date Stop Date Source Tobacco smoking consumption unknown [facility] Medications Ordered Medication Name Filled Medication Name Start Date Stop Date Current Medication? Ordering Clinician Indication Dosage Frequency Signature (SIG) Comments Components Source clindamycin 300 mg capsule 04-20 00:00: 00 04-28 04:59 :00 Yes [id number] 300mg Take 1 capsule by mouth 4 (four) times daily for 7 days. [facility] insulin regular human (HUMULIN R) injection 10 Units 06-22 04:00: 00 06-22 04:00 :00 No 10U 10 Units, Subcutaneo us, ONCE, 1 dose, Mon06/21/21 at 2300, JEMIMA [facility] casirivimab -imdevimab 1200 mg in 60 mL NS MINI-BAG 06-22 04:00: 00 06-22 03:40 :00 No 1200mg 1,200 mg, IV Infusion, ONCE, Administer over 20 Minutes, Mon06/21/21 at 2300, For 1 dose
Ad human resources operations manager as an IV infusion via pump or gravity through an intravenou s line containing a sterile, in-line or add-on 0.2-micron polyethers ulfone (PES) filter. Stable 36 hours refrigerat ed; 4 hours at room temperatur e.
[facility] METFORMIN HCL (METFORMIN ORAL) 06-22 03:49: 43 06-21 00:00 :00 No Take by mouth. [facility] acetaminoph en (TYLENOL) tablet 1,000 mg 06-22 00:45: 00 06-22 00:53 :00 No 1000mg 1,000 mg, Oral, ONCE, 1 dose, Mon06/21/21 at 1945, JEMIMA [facility] albuterol 90 mcg/actuati on inhaler 06-21 00:00: 00 Yes [id number] 2{puff} Inhale 2 Puffs every 4 (four) hours as needed for Wheezing or Shortness of Breath. [facility] benzonatate 100 mg capsule 06-21 00:00: 00 Yes [id number] 100mg Take 1 capsule by mouth 3 (three) times daily as needed for Cough. [facility] metFORMIN 1,000 mg tablet 06-21 00:00: 00 Yes [id number] 1000mg Take 1 tablet by mouth 2 (two) times daily with meals. [facility] ibuprofen 600 mg tablet 05-30 00:00: 00 Yes [id number] 600mg Take 1 tablet by mouth every 6 (six) hours as needed for Pain (scale 4-6). [facility] GLYBURIDE ORAL 05-03 04:06: 46 Yes Take by mouth. [facility] LISINOPRIL ORAL 05-03 04:06: 46 Yes Take by mouth. [facility] METFORMIN HCL (METFORMIN ORAL) 05-03 04:06: 46 Yes Take by mouth. [facility] LISINOPRIL ORAL 05-02 23:06: 46 Yes Take by mouth. [facility] Vital Signs Vital Name Observation Time Observation Value Comments S pierre Body height 2024-04-20 20:10:00 185.4 cm [facility] Body weight 2024-04-20 20:10:00 117.935 kg [facility] BMI 2024-04-20 20:10:00 34.30 kg/m2 [facility] Oxygen saturation in Arterial blood by Pulse oximetry 2024-04-20 20:10:00 97 /min [facility] Systolic blood pressure 2024-04-20 20:10:00 133 mm[Hg] [facility] Diastolic blood pressure 2024-04-20 20:10:00 90 mm[Hg] [facility] Heart rate 2024-04-20 20:10:00 96 /min [facility] Body temperature 2024-04-20 20:10:00 37.22 [facility] Respiratory rate 2024-04-20 20:10:00 16 /min [facility] Systolic blood pressure 2021-06-22 03:00:00 119 mm[Hg] [facility] Diastolic blood pressure 2021-06-22 03:00:00 77 mm[Hg] [facility] Heart rate 2021-06-22 03:00:00 83 /min [facility] Body temperature 2021-06-22 03:00:00 37.28 Diana [facility] Respiratory rate 2021-06-22 03:00:00 18 /min [facility] Oxygen saturation in Arterial blood by Pulse oximetry 2021-06-22 03:00:00 96 /min [facility] Body weight 2021-06-22 00:09:00 124.739 kg [facility] BMI 2021-06-22 00:09:00 35.31 kg/m2 [facility] Systolic blood pressure 2019-05-30 21:01:00 141 mm[Hg] [facility] Diastolic blood pressure 2019-05-30 21:01:00 84 mm[Hg] [facility] Heart rate 2019-05-30 21:01:00 84 /min [facility] Respiratory rate 2019-05-30 21:01:00 18 /min [facility] Body height 2019-05-30 21:01:00 188 cm [facility] Body weight 2019-05-30 21:01:00 129.275 kg [facility] BMI 2019-05-30 21:01:00 36.59 kg/m2 [facility] Oxygen saturation in Arterial blood by Pulse oximetry 2019-05-30 21:01:00 98 /min [facility] Systolic blood pressure 2019-05-30 21:01:00 141 mm[Hg] [facility] Diastolic blood pressure 2019-05-30 21:01:00 84 mm[Hg] [facility] Heart rate 2019-05-30 21:01:00 84 /min [facility] Respiratory rate 2019-05-30 21:01:00 18 /min [facility] Body height 2019-05-30 21:01:00 188 cm [facility] Body weight 2019-05-30 21:01:00 129.275 kg [facility] BMI 2019-05-30 21:01:00 36.59 kg/m2 [facility] Oxygen saturation in Arterial blood by Pulse oximetry 2019-05-30 21:01:00 98 /min [facility] Procedures Procedure Date / Time Performed Performing Clinician Source XR CHEST 1 VW 2021-06-22 02:44:13 Javier Rao [facility] CBC WITH DIFF 2021-06-22 00:53:00 Javier Rao [facility] GLYCOSYLATED HEMOGLOBIN (A1C) 2021-06-22 00:53:00 Javier Rao [facility] COVID-19 (ID NOW RAPID TESTING) 2021-06-22 00:53:00 Javier Rao [facility] BASIC METABOLIC PANEL (NA, K, CL, CO2, GLUCOSE, BUN, CREATININE, CA) 2021-06-22 00:52:00 Javier Rao [facility] CONSENT/REFUSAL FOR DIAGNOSIS AND TREATMENT 2021-06-22 00:09:58 Doctor Unassigned, [place] [facility] NOTICE OF PRIVACY PRACTICES 2019-05-30 20:50:54 Doctor Unassigned, [place] [facility] CONSENT/REFUSAL FOR DIAGNOSIS AND TREATMENT 2019-05-30 20:50:26 Doctor Unassigned, [place] [facility] Encounters Start Date/Time End Date/Time Encounter Type Admission Type Attending Clinicians Care Facility Care Department Encounter ID Source 2024-04-20 15:13:00 2024-04-20 15:45:00 Emergency X TRACEY SANDOVAL [facility] ERT [id number] [facility] 2024-04-20 15:13:00 2024-04-20 15:45:00 Emergency Tracey Sandoval [facility] 1.2.840.114 350.1.13.10 4.2.7.2.686 [id number] [facility] 2021-06-21 19:10:00 2021-06-21 23:04:00 Emergency Javier Rao [facility] 1.2.840.114 350.1.13.10 4.2.7.2.686 [id number] [facility] 2021-06-21 18:59:00 2021-06-21 18:59:00 Emergency X [facility] ERT [id number] [facility] 2019-05-30 16:02:51 2019-05-30 17:01:00 Emergency Azalea Johnson [facility] 1.2.840.114 350.1.13.10 4.2.7.2.686 [id number] [id number] 2019-05-30 16:02:51 2019-05-30 17:01:00 Emergency Azalea Johnson [facility] 1.2.840.114 350.1.13.10 4.2.7.2.686 [id number] [id number] [facility] Results Test Description Test Time Test Comments Results Result Co mments Source [facility]C)2021-06-22 02:42:50* Test Item Value Reference Range Interpretation Comme nts HGB A1C (test code = 4548-4) >14.0 4.0-5.7 H CARLY (test code = CARLY) Lab Interpretation (test cod e = 96277-7) Abnormal [facility] WITH GLLT8828-37-68 01:54:55* Test Item Value Reference Range Interpretation Comme nts WBC (test code = 6690-2) See_Comment [[employer]] The system which generated this result transmitted reference range: 4.20 - 10.70 10*3/?L. The reference range was not used to interpret this result as normal/abnormal. RBC (test code = 789-8) See_Comment [[employer]] The system which generated this result transmitted reference range: 4.26 - 5.52 10*6/?L. The reference range was not used to interpret this result as normal/abnormal. HGB (test code = 718-7) 14.4 g/dL 12.2-16.4 HCT (test code = 4544-3) 42.1 % 38.4-49.3 MCV (test code = 787-2) 85.6 fL 81.7-95.6 MCH (test code = 785-6) 29.3 pg 26.1-32.7 MCHC (test code = 786-4) 34.2 g/dL 31.2-35.0 RDW-SD (test code = 17849-4) 37.8 fL 38.5-51.6 L RDW-CV (test code = 788-0) 12.1 % 12.1-15.4 PLT (test code = 777-3) See_Comment L [Automated messa ge] The system which generated this result transmitted reference range: 150 - 328 10*3/?L. The reference range was not used to interpret this result as normal/abnormal. MPV (test code = 32364-2) 11.9 fL 9.8-13.0 NRBC/100 WBC (test code = 0130191273) See_Comment [Automated me ssage] The system which generated this result transmitted reference range: 0.0 - 10.0 /100 WBCs. The reference range was not used to interpret this result as normal/abnormal. NRBC x10^3 (test code = 4149323453) <0.01 See_Comment [Automated messa ge] The system which generated this result transmitted reference range: 10*3/?L. The reference range was not used to interpret this result as normal/abnormal. GRAN MAT (NEUT) % (test code = 770-8) 67.9 % IMM GRAN % (test code = 9366312034) 0.40 % LYMPH % (test code = 736-9) 24.6 % MONO % (test code = 5905-5) 7.0 % EOS % (test code = 713-8) 0.0 % BASO % (test code = 706-2) 0.1 % GRAN MAT x10^3(ANC) (test code = 0041674690) 4.59 10*3/uL 1.99-6.95 IMM GRAN x10^3 (test code = 0308217803) 0.03 10*3/uL 0.00-0.06 LYMPH x10^3 (test code = 731-0) 1.66 10*3/uL 1.09-3.23 MONO x10^3 (test code = 742-7) 0.47 10*3/uL 0.36-1.02 EOS x10^3 (test code = 711-2) <0.03 0.06-0.53 L BASO x10^3 (test code = 704-7) <0.03 0.01-0.09 REACT LYMPHS (test code = 1696976846) Rare Lab Interpretation (test code = 30199-0) Abnormal [facility] WITH IGKR6696-87-11 01:54:55* Test Item Value Reference Range Interpretation Comme nts WBC (test code = 6690-2) See_Comment [Automated messa ge] The system which generated this result transmitted reference range: 4.20 - 10.70 10*3/?L. The reference range was not used to interpret this result as normal/abnormal. RBC (test code = 789-8) See_Comment [Automated messa ge] The system which generated this result transmitted reference range: 4.26 - 5.52 10*6/?L. The reference range was not used to interpret this result as normal/abnormal. HGB (test code = 718-7) 14.4 g/dL 12.2-16.4 HCT (test code = 4544-3) 42.1 % 38.4-49.3 MCV (test code = 787-2) 85.6 fL 81.7-95.6 MCH (test code = 785-6) 29.3 pg 26.1-32.7 MCHC (test code = 786-4) 34.2 g/dL 31.2-35.0 RDW-SD (test code = 82484-7) 37.8 fL 38.5-51.6 L RDW-CV (test code = 788-0) 12.1 % 12.1-15.4 PLT (test code = 777-3) See_Comment L [Automated messa ge] The system which generated this result transmitted reference range: 150 - 328 10*3/?L. The reference range was not used to interpret this result as normal/abnormal. MPV (test code = 30427-4) 11.9 fL 9.8-13.0 NRBC/100 WBC (test code = 1190682082) See_Comment [Automated [employer] ssage] The system which generated this result transmitted reference range: 0.0 - 10.0 /100 WBCs. The reference range was not used to interpret this result as normal/abnormal. NRBC x10^3 (test code = 1163435479) <0.01 See_Comment [Automated messa ge] The system which generated this result transmitted reference range: 10*3/?L. The reference range was not used to interpret this result as normal/abnormal. GRAN MAT (NEUT) % (test code = 770-8) 67.9 % IMM GRAN % (test code = 9141968449) 0.40 % LYMPH % (test code = 736-9) 24.6 % MONO % (test code = 5905-5) 7.0 % EOS % (test code = 713-8) 0.0 % BASO % (test code = 706-2) 0.1 % GRAN MAT x10^3(ANC) (test code = 6382829054) 4.59 10*3/uL 1.99-6.95 IMM GRAN x10^3 (test code = 5124405597) 0.03 10*3/uL 0.00-0.06 LYMPH x10^3 (test code = 731-0) 1.66 10*3/uL 1.09-3.23 MONO x10^3 (test code = 742-7) 0.47 10*3/uL 0.36-1.02 EOS x10^3 (test code = 711-2) <0.03 0.06-0.53 L BASO x10^3 (test code = 704-7) <0.03 0.01-0.09 REACT LYMPHS (test code = 8691925641) Rare Lab Interpretation (test code = 99518-7) Abnormal [facility] METABOLIC PANEL (NA, K, CL, CO2, GLUCOSE, BUN, CREATININE, CA)2021-06-22 01:17:05* Test Item Value Reference Range Interpretation Comme nts NA (test code = 7570767978) 129 mmol/L 135-145 L K (test code = 0974543527) 4.1 mmol/L 3.5-5.0 CL (test code = 8047875907) 93 mmol/L 98-108 L CO2 TOTAL (test code = 8053591696) 27 mmol/L 23-31 AGAP (test code = 0876052927) 2-16 BUN (test code = 3800162506) 7 mg/dL 7-23 GLUCOSE (test code = 1638734373) 341 mg/dL 70-110 H CREATININE (test code = 5756858282) 0.76 mg/dL 0.60-1.25 CALCIUM (test code = 2825181626) 8.7 mg/dL 8.6-10.6 eGFR (test code = 6796782515) mL/min/1.73m2 CARLY (test code = CARLY) Association of [...] or abnormalities in imaging tests). Lab Interpretation (test code = 07775-6) [facility] (NA, K, CL, CO2, GLUCOSE, BUN, CREATININE, CA)2021-06-22 01:17:05* Test Item Value Reference Range Interpretation Comme nts NA (test code = 8631172059) 129 mmol/L 135-145 L K (test code = 9144746988) 4.1 mmol/L 3.5-5.0 CL (test code = 1808371018) 93 mmol/L 98-108 L CO2 TOTAL (test code = 8613167280) 27 mmol/L 23-31 AGAP (test code = 4383724920) 2-16 BUN (test code = 0221559122) 7 mg/dL 7-23 GLUCOSE (test code = 2323188923) 341 mg/dL 70-110 H CREATININE (test code = 5929880309) 0.76 mg/dL 0.60-1.25 CALCIUM (test code = 6176267204) 8.7 mg/dL 8.6-10.6 eGFR (test code = 1492270424) mL/min/1.73m2 CARLY (test code = CARLY) Lab Interpretation (test cod e = 42694-5) [facility]normal [facility] ([facility] NOW RAPID TESTING)2021-06-22 01:15:24* Test Item Value Reference Range Interpretation Comme nts SARS-CoV-2 Rapid ID NOW (test code = 50987-2) Positive Not Detected A CARLY (test code = CARLY) ID NOW COVID-19 As say is an isothermal nucleic acid amplification test intended for the qualitative detection of nucleic acid from SARS-CoV-2 viral RNA in nasopharyngeal (SURGICAL RESIDENT) specimens. It is used under Emergency Use [...] patient testing if clinically indicated. Lab Interpretation (test code = 20021-2) [facility]normal [facility]ID [facility])2021-06-22 01:15:24* Test Item Value Reference Range Interpretation Comme nts SARS-CoV-2 Rapid ID NOW (nahomy t code = 02930-4) Positive Not Detected A CARLY (test code = CARLY) Lab Interpretation (test cod e = 09969-4) Abnormal [facility] Notes Date/Time Note Provider Source 2024-04-20 15:27:33 1664-38-22P40:27:33 Pt discharged with diagnosis of cellulitis of head except face. Printed and verbal instructions reviewed with and given to pt. Prescriptions given x 1. Pt verbalized understanding of teaching, medication, and recommended follow-up. Denies questions or concerns at this time. Pt ambulatory at discharge. Appears in no apparent distress. No ataxia noted. [address]-[address] RkjfQM1965-80-65K20:28:10[facility] NoteTXT1.2.840.467256.1.13.104.2.7.2.72 7879|[id number] for patient osir75673-1PqsqXIYZUEHNOUASwiwsfqtx C-CDA narrative [id number] R Potter RNUT[address] Harrison [id number] QUFWEASHABHKPHYZFLK2298-49-39G54:28:101 .2.840.480854.1.72.3.15|1.2.840.148159. 1.13.104.2.7.2.727879_[id number] Nellie Adamson RN [facility] 2024-04-20 15:14:05 3895-15-79C90:14:05 Dr. Sandoval performing US of lump in triage. 27904-5Jgvqwvpyi[address] [place] [address] GscwKD5004-82-04V04:14:21[facility] NoteTXT1.2.840.037501.1.13.104.2.7.2.72 7879|[id number] for patient lcju76902-0UjewWTDZCKQFLZUWonezkopo C-CDA narrative text[address] [id number] VOGQIMOOHTGTXTOYAMX0962-39-95Q89:14:211 .2.840.943147.1.72.3.15|1.2.840.035791. 1.13.104.2.7.2.727879_[id number] [facility] 2024-04-20 15:10:01 9650-94-36O93:10:01 Patient states: "I have this knot on the back of my head that has been growing for the past 2 weeks. It's the size of a golf ball and I can't even turn my head"Pmhx: DM. 35851-1Bakdnymyp department Triage sksbFU2339-33-65B36:10:32[facility] Triage noteTXT1.2.840.241583.1.13.104.2.7.2.72 7879|[id number] for patient sljx55019-4Nhcxyifku department NoteLNNARRATIVEFormatted C-CDA narrative [id number] M Cruz RN[address] Uy[id number] TUUNSGCTUZJNLKGHKRL4733-43-34G90:10:321 .2.840.237804.1.72.3.15|1.2.840.606804. 1.13.104.2.7.2.727879_[id number] Cleopatra Modi RN 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 No drainage from the area. No fevers or chills. He does have a history of diabetes. No medications taken prior to arrival.Here for evaluation.Past Medical History/Immunizations:History reviewed. No pertinent past medical history.Tetanus received in last 5 years: YesChildhood immunizations: Gk-ml-numaWgcbedork:No Known AllergiesPast Social History:Substance & Sexual ActivityNo substance use or sexual activity history on file.Past Surgical History:History reviewed. No pertinent surgical history.Review of Systems:Review of SystemsConstitutional: Negative for chills and fever.Respiratory: Negative for cough.Cardiovascular: Negative for chest pain.Gastrointestinal: Negative for abdominal pain and vomiting.Genitourinary: Negative for dysuria.Musculoskeletal: Negative for arthralgias, neck pain and neck stiffness.Skin: Positive for wound.Neurological: Negative for dizziness.Psychiatric/Behavioral: Negative for agitation.Physical Exam:ED Triage Vitals [04/20/24 1510]Weight 117.9 kg (260 lb)Actual or estimated Estimated by patient/family reportHeight 1.854 m (6' 1")BP 133/90Pulse 96Resp 16Temp 37.2 ?C (99 ?F)Temp source OralSpO2 97 %Measured on Room airPhysical ExamVitals and nursing note reviewed.Constitutional:Appearance: Normal appearance. He is obese.HENT:Head: Normocephalic and atraumatic.Neck:Cardiovascular:Rate and Rhythm: Normal rate.Pulses: Normal pulses.Pulmonary:Effort: Pulmonary effort is normal. No respiratory distress.Breath sounds: No wheezing.Abdominal:General: There is no distension.Musculoskeletal:General: Normal range of motion.Cervical back: Neck supple.Skin:General: Skin is warm and dry.Neurological:Mental Status: He is alert.Radiology:No orders to displayLab Results:Lab Results - No data to displayEKG:If EKG completed, see Procedure Note.Orders and Treatments:No orders of the defined types were placed in this encounter.Orders Placed This EncounterMedicationsclindamycin 300 mg capsuleFirst Provider Eval:ED EventsDate/Time Event User Szwburhv25/29/24 1509 Medical Screening Begins TRACEY SANDOVAL DO --04/20/24 1509 First Provider Evaluation TRACEY SANDOVAL DO --ED COURSEDiagnosis/Impression as of 04/20/24 1529Cellulitis of head except faceProcedures:ProceduresMDM:Medical Decision MakingThe patient presents from home for evaluation for a lump to the back of his head that is present and slowly getting worse over the past 2 weeks. No drainage from the area. No fevers. Medications taken for symptoms. He does have a history of diabetes and takes metformin for this.Vital signs are stable in the ER.The patient is obese.There is a 3 x 3 cm area of erythema and tenderness located at the occipital hairline on the right side.There is no fluctuance or drainage noted.A bedside ultrasound shows no fluid collection to suggest an abscess.Will treat with antibiotics and recommend warm compresses.He will need follow-up in the next 2 to 3 days for a wound recheck.He remained stable here in the ER and is okay for discharge home with PCP follow-up.Problems Addressed:Cellulitis of head except face: acute illness or injuryRiskPrescription drug management.Flowsheet Documentation:Scoring Tools:No data recordedDisposition/Condition:ED DispositionED DispositionDisch - HomeConditionStableComment--Discharge Medications:Patient's MedicationsSTART taking these medicationsCLINDAMYCIN 300 MG CAPSULE Take 1 capsule by mouth 4 (four) times daily for 7 days.CONTINUE taking these medications which have NOT CHANGEDALBUTEROL 90 MCG/ACTUATION INHALER Inhale 2 Puffs every 4 (four) hours as needed for Wheezing or Shortness of Breath.BENZONATATE 100 MG CAPSULE Take 1 capsule by mouth 3 (three) times daily as needed for Cough.GLYBURIDE ORAL Take by mouth.IBUPROFEN 600 MG TABLET Take 1 tablet by mouth every 6 (six) hours as needed for Pain (scale 4-6).LISINOPRIL ORAL Take by mouth.METFORMIN 1,000 MG TABLET Take 1 tablet by mouth 2 (two) times daily with meals.START taking Modified Medications as PrescribedNo medications on fileSTOP taking these medicationsNo medications on fileFollow-up:Electronically signed by:Tracey Sandoval DO04/20/24 1530 28031-8Hdikeqwrr Emergency department JbzhFE7138-74-33P02:30:00Physician Emergency department NoteTXT1.2.840.808821.1.13.104.2.7.2.72 7879|[id number] for patient taff42915-7Yfjpzhgao department NoteLNNARRATIVEFormatted C-CDA narrative textUT[address] Cb[id number] JNJRWRVFIBHYXHHIAGF8132-66-29X12:30:001 .2.840.044502.1.72.3.15|1.2.840.523533. 1.13.104.2.7.2.727879_[id number] [facility]
[2024-04-24] MEDS ORDERED: LIDOCAINE 1% MPF 5 ML VIAL ONE (23:04)
[2024-04-24] MEDS ORDERED: HYDROCODONE/APAP 10/325 TAB ONE (23:04)
--- NOTE | 2024-04-24 23:45 | ER ---
Nurse's Notes [facility] Name: Enriqueta Hearn Age: 28 yrs Sex: Male : 1995 Arrival Date: 04/24/2024 Time: 22:44 Bed 12 Private MD: Diagnosis: Cutaneous abscess, unspecified Presentation: 04/24 22:52 Chief complaint: Patient states: abscess to neck x1 week. pt report it started draining as6 3 days ago. Coronavirus screen: At this time, the client does not indicate any symptoms associated with coronavirus-19. Ebola Screen: No symptoms or risks identified at this time. Initial Sepsis Screen: Does the patient meet any 2 criteria? No. Patient's initial sepsis screen is negative. Does the patient have a suspected source of infection? No. Patient's initial sepsis screen is negative. Risk Assessment: Do you want to hurt yourself or someone else? Patient reports no desire to harm self or others. Onset of symptoms was April 17, 2024. 22:52 Acuity: HARESH 4 as6 22:52 Method Of Arrival: Ambulatory as6 Historical: - Allergies: 22:52 No Known Allergies; as6 - PMHx: 22:52 Diabetes - IDDM; Hypertension; as6 - PSHx: 22:52 foot; as6 - Immunization history:: Adult Immunizations up to date. - Infectious Disease History:: Denies. - Social history:: Smoking status: Patient denies any tobacco usage or history of. - Family history:: not pertinent. Screenin:[address] [facility] ED Fall Risk Assessment (Adult) History of falling in the last 3 months, me1 including since admission No falls in past 3 months (0 pts) Confusion or Disorientation No (0 pts) Intoxicated or Sedated No (0 pts) Impaired Gait No (0 pts) Mobility Assist Device Used No (0 pt) Altered Elimination No (0 pt) Score/Fall Risk Level 0 - 2 = Low Risk Oriented to surroundings, Provided non-skid footwear, Hourly rounding (assess needs \T\ fall precautionary measures) done. Abuse screen: Denies threats or abuse. Nutritional screening: No deficits noted. Tuberculosis screening: No symptoms or risk factors identified. Assessment: 23:09 General: Appears uncomfortable, obese, well groomed, well developed, Behavior is me1 cooperative, appropriate for age, anxious, Reports abscess to posterior neck x 1 week that started draining purulent drainage 3 days ago. Pain: Complains of pain in back of neck Pain does not radiate. Pain currently is 10 out of 10 on a pain scale. Quality of pain is described as throbbing, Pain began 1 week ago Is continuous. Neuro: Level of Consciousness is awake, alert, obeys commands, Oriented to person, place, time, situation, Appropriate for age. Cardiovascular: Patient's skin is warm and dry. Respiratory: Airway is patent Respiratory effort is even, unlabored, Respiratory pattern is regular, symmetrical. GI: No signs and/or symptoms were reported involving the gastrointestinal system. : No signs and/or symptoms were reported regarding the genitourinary system. EENT: No signs and/or symptoms were reported regarding the EENT system. Derm: Wound noted back of neck Wound is abscess. Musculoskeletal: No signs and/or symptoms reported regarding the musculoskeletal system. Vital Signs: 22:51 BP 154 / 91; Pulse 90; Resp 18; Temp 97.2; Pulse Ox 97% ; Weight 117.93 kg; Height 6 as6 ft. 1 in. ; Pain 10/10; 23:59 BP 142 / 87; Pulse 88; Resp 18; Temp 98.2; Pulse Ox 98% ; me1 22:51 Body Mass Index 34.30 (117.93 kg, 185.42 cm) as6 22:51 Pain Scale: Adult as6 ED Course: 22:45 Patient arrived in ED. mr 22:46 Mohamud Agrawal MD is Attending Physician. rt 22:52 Arm band placed on right wrist. as6 22:53 Triage completed. as6 23:03 Lian Man, CRIS is Primary Nurse. me1 23:09 Patient has correct armband on for positive identification. Bed in low position. Call me1 light in reach. Side rails up X2. Provided Education on: POC. Verbalized understanding. . Client placed on continuous cardiac and pulse oximetry monitoring. NIBP monitoring applied. Pulse ox on. NIBP on. 23:09 No provider procedures requiring assistance completed. Patient did not have IV access me1 during this emergency room visit. Administered Medications: 23:09 Drug: Morgan PO 10 mg-325 mg 1 tabs PO once Route: PO; me1 23:54 Follow up: Response: No adverse reaction; Pain is decreased me1 23:54 Drug: Lidocaine Infiltration (1 %) 5 ml 5 ml Infiltration once; to bedside {Note: me1 Administered by Dr Agrawal.} Volume: 5 ml; Route: Infiltration; Medication: 23:09 VIS not applicable for this client. me1 Outcome: 23:44 Discharge ordered by MD. rt 23:59 Discharged to home ambulatory, with family, me1 23:59 Condition: stable 23:59 Discharge instructions given to patient, family, Instructed on discharge instructions, follow up and referral plans. medication usage, Demonstrated understanding of instructions, follow-up care, medications, Prescriptions given X 1, 04 00:00 Patient left the ED. me1 Signatures: Emy Iyer, Lasha Wilkinson, RN RN as6 Mohamud Agrawal MD MD rt Lian Man RN RN me1 Corrections: (The following items were deleted from the chart) 04/24 23:54 23:54 Lidocaine Infiltration (1 %) 5 ml 5 ml Infiltration me1 me1
--- NOTE | 2024-04-24 23:45 | EDPHYS ---
Physician Documentation [facility] Name: Enriqueta Hearn Age: 28 yrs Sex: Male : 1995 Arrival Date: 04/24/2024 Time: 22:44 Bed 12 Private MD: ED Physician Mohamud Agrawal HPI: 04/24 23:02 This 28 yrs old Black Male presents to ER via Ambulatory with complaints of Abscess. rt 23:02 Patient presents to the ED with abscess to the back of the neck. The patient states rt that it started draining small amount 3 days ago. Reports of pain to the area. Denies other acute complaints at this time, symptoms are mild in severity, no other aggravating or alleviating factors.. Historical: - Allergies: 22:52 No Known Allergies; as6 - PMHx: 22:52 Diabetes - IDDM; Hypertension; as6 - PSHx: 22:52 foot; as6 - Immunization history:: Adult Immunizations up to date. - Infectious Disease History:: Denies. - Social history:: Smoking status: Patient denies any tobacco usage or history of. - Family history:: not pertinent. ROS: 23:02 Constitutional: Negative for fever, chills, and weight loss, Cardiovascular: Negative rt for chest pain, palpitations, and edema, Respiratory: Negative for shortness of breath, cough, wheezing, and pleuritic chest pain, Abdomen/GI: Negative for abdominal pain, nausea, vomiting, diarrhea, and constipation, Neuro: Negative for headache, weakness, numbness, tingling, and seizure, 23:02 Skin: Positive for abscess, Exam: 23:02 Constitutional: This is a well developed, well nourished patient who is awake, alert, rt and in no acute distress. Head/Face: Normocephalic, atraumatic. Chest/axilla: Normal chest wall appearance and motion. Nontender with no deformity. No lesions are appreciated. Cardiovascular: Regular rate and rhythm with a normal S1 and S2. No gallops, murmurs, or rubs. Normal PMI, no JVD. No pulse deficits. Respiratory: Lungs have equal breath sounds bilaterally, clear to auscultation and percussion. No rales, rhonchi or wheezes noted. No increased work of breathing, no retractions or nasal flaring. Abdomen/GI: Soft, non-tender, with normal bowel sounds. No distension or tympany. No guarding or rebound. No evidence of tenderness throughout. MS/ Extremity: Pulses equal, no cyanosis. Neurovascular intact. Full, normal range of motion. Neuro: Awake and alert, GCS 15, oriented to person, place, time, and situation. Cranial nerves II-XII grossly intact. Motor strength 5/5 in all extremities. Sensory grossly intact. Cerebellar exam normal. Normal gait. 23:02 Skin: About a 3 cm abscess apparent to the back of the neck, no surrounding erythema. Vital Signs: 22:51 BP 154 / 91; Pulse 90; Resp 18; Temp 97.2; Pulse Ox 97% ; Weight 117.93 kg; Height 6 as6 ft. 1 in. ; Pain 10/10; 23:59 BP 142 / 87; Pulse 88; Resp 18; Temp 98.2; Pulse Ox 98% ; me1 22:51 Body Mass Index 34.30 (117.93 kg, 185.42 cm) as6 22:51 Pain Scale: Adult as6 Procedures: 23:47 I \T\ D: Incision and drainage was performed for an abscess of the back of neck Prepped rt with alcohol, Anesthetized with 1 ml's 1% Lidocaine. Incised with #11 blade. Drained moderate amount purulent fluid. Dressing: sterile 4x4 gauze, the patient tolerated the procedure well. MDM: 22:57 Patient medically screened. rt 23:47 Differential diagnosis: abscess. Data reviewed: vital signs, nurses notes. Test rt considered but Not performed: Other Details Stable vital signs, low suspicion for systemic infection, labs not indicated. Care significantly affected by the following chronic conditions: Diabetes. Counseling: I had a detailed discussion with the patient and/or guardian regarding the historical points, exam findings, and any diagnostic results supporting the discharge/admit diagnosis, the need for outpatient follow up, to return to the emergency department if symptoms worsen or persist or if there are any questions or concerns that arise at home. Response to treatment: the patient's symptoms have markedly improved after treatment. 04/24 23:01 Order name: Incision \T\ Drainage Setup; Complete Time: 23:09 rt Administered Medications: 23:09 Drug: Garland PO 10 mg-325 mg 1 tabs PO once Route: PO; me1 23:54 Follow up: Response: No adverse reaction; Pain is decreased me1 23:54 Drug: Lidocaine Infiltration (1 %) 5 ml 5 ml Infiltration once; to bedside {Note: me1 Administered by Dr Agrawal.} Volume: 5 ml; Route: Infiltration; Disposition Summary: 04/24/24 23:44 Discharge Ordered Notes: Location: Home rt Problem: new rt Symptoms: have improved rt Condition: Stable rt Diagnosis - Cutaneous abscess, unspecified rt Followup: rt - With: Private Physician - When: 2 - 3 days - Reason: Discharge Instructions: - Discharge Summary Sheet rt - Skin Abscess rt - Incision and Drainage rt Forms: - Medication Reconciliation Form rt - Antibiotic Education rt - Prescription Opioid Use rt - Patient Portal Instructions rt - Leadership Thank You Letter rt - Work release form me1 Prescriptions: - Doxycycline Hyclate 100 mg Oral Tablet - take 1 tablet ORAL route every 12 hours; 20 tablet; Refills: 0, Product rt Selection Permitted Signatures: Lasha Cat RN RN as6 Mohamud Agrawal MD MD rt Lian Man RN RN me1
[2024-04-25 01:08] VITALS: BP 142/87; TEMP 98.2; O2SAT 98
== END 2024-04-25 | disposition home or self-care (01) ==
LOC: ER 22:44
PROC: 0H94XZZ Drainage of Neck Skin, External Approach (ICD-10-PCS; principal; 2024-04-25)
DX: L02.11 Cutaneous abscess of neck (principal)
CPT/HCPCS: 99284; J2001

== ENCOUNTER 2024-12-01 12:40 | Emergency (ER) | payer SELFPAY ==
--- OUTSIDE RECORDS SUMMARY | 2024-12-01 12:43 | XMS REPORT | Continuity of Care Document ---
Author Name Unknown Address [address] [place] [address] [facility] thconnect Address [address] [place] [address] Care Team Providers Care Director Meetings Name Role Phone PCP, PATIENT DOES NOT HAVE A Primary Care Physic TRACEY Dodge Attending Clinician UnavailTRACEY Del Cid Attending Clinician Javier Avery MD Attending Clinician [phone] Azalea Solomon Attending Clinician Problems Condition Name Condition Details Condition Category Status Onset Date Resolution Date Last Treatment Date Treating Clinician Comments Source No known active problems No known active problems Disease [facility] Allergies, Adverse Reactions, Alerts Allergy Name Allergy Type Status Severity Reaction(s) Onset Date Inactive Date Treating Clinician Comments Source NO KNOWN ALLERGIE S Drug Class Active [facility] Social History Social Habit Start Date Stop Date Quantity Comments Source Exposure to SARS-CoV-2 (event) Yes [facility] Sexual orientation U [facility] Sex assigned at 1995 00:00:00 1995 00:00:00 [facility] Smoking Status Start Date Stop Date Source Tobacco smoking consumption unknown [facility] Medications Ordered Medication Name Filled Medication Name Start Date Stop Date Current Medication? Ordering Clinician Indication Dosage Frequency Signature (SIG) Comments Components Source clindamycin 300 mg capsule 04-20 00:00: 00 04-28 04:59 :00 No [id number] 300mg Take 1 capsule by mouth 4 (four) times daily for 7 days. [facility] insulin regular human (HUMULIN R) injection 10 Units 06-22 04:00: 00 06-22 04:00 :00 No 10U 10 Units, Subcutaneo us, ONCE, 1 dose, Mon06/21/21 at 2300, [facility] casirivimab -imdevimab 1200 mg in 60 mL NS MINI-BAG 06-22 04:00: 00 06-22 03:40 :00 No 1200mg 1,200 mg, IV Infusion, ONCE, Administer over 20 Minutes, Mon06/21/21 at 2300, For 1 dose
Ad tool and die repairer as an IV infusion via pump or gravity through an intravenou s line containing a sterile, in-line or add-on 0.2-micron polyethers ulfone (PES) filter. Stable 36 hours refrigerat ed; 4 hours at room temperatur e.
[facility] METFORMIN HCL (METFORMIN ORAL) 06-22 03:49: 43 06-21 00:00 :00 No Take by mouth. [facility] acetaminoph en (TYLENOL) tablet 1,000 mg 06-22 00:45: 00 06-22 00:53 :00 No 1000mg 1,000 mg, Oral, ONCE, 1 dose, Mon06/21/21 at 1945, [facility] albuterol 90 mcg/actuati on inhaler 06-21 00:00: 00 Yes [id number] 2{puff} Inhale 2 Puffs every 4 (four) hours as needed for Wheezing or Shortness of Breath. [facility] benzonatate 100 mg capsule 06-21 00:00: 00 Yes [id number] 100mg Take 1 capsule by mouth 3 (three) times daily as needed for Cough. [facility] metFORMIN 1,000 mg tablet 2021-0 8-30 00:00: 00 Yes [id number] 1000mg Take 1 tablet by mouth 2 (two) times daily with meals. [facility] ibuprofen 600 mg tablet 05-30 00:00: 00 Yes [id number] 600mg Take 1 tablet by mouth every 6 (six) hours as needed for Pain (scale 4-6). [facility] GLYBURIDE ORAL 05-03 04:06: 46 Yes Take by mouth. [facility] LISINOPRIL ORAL 05-03 04:06: 46 Yes Take by mouth. [facility] METFORMIN HCL (METFORMIN ORAL) 05-03 04:06: 46 Yes Take by mouth. [facility] LISINOPRIL ORAL 05-02 23:06: 46 Yes Take by mouth. [facility] Vital Signs Vital Name Observation Time Observation Value Comments S ource Body height 2024-04-20 20:10:00 185.4 cm [facility] Body weight 2024-04-20 20:10:00 117.935 kg [facility] BMI 2024-04-20 20:10:00 34.30 kg/m2 [facility] Oxygen saturation in Arterial blood by Pulse oximetry 2024-04-20 20:10:00 97 /min [facility] Systolic blood pressure 2024-04-20 20:10:00 133 mm[Hg] [facility] Diastolic blood pressure 2024-04-20 20:10:00 90 mm[Hg] [facility] Heart rate 2024-04-20 20:10:00 96 /min [facility] Body temperature 2024-04-20 20:10:[address] [facility] Respiratory rate 2024-04-20 20:10:00 16 /min [facility] Systolic blood pressure 2021-06-22 03:00:00 119 mm[Hg] [facility] Diastolic blood pressure 2021-06-22 03:00:00 77 mm[Hg] [facility] Heart rate 2021-06-22 03:00:00 83 /min [facility] Body temperature 2021-06-22 03:00:[address] [facility] Respiratory rate 2021-06-22 03:00:00 18 /min [facility] Oxygen saturation in Arterial blood by Pulse oximetry 2021-06-22 03:00:00 96 /min [facility] Body weight 2021-06-22 00:09:00 124.739 kg [facility] BMI 2021-06-22 00:09:00 35.31 kg/m2 [facility] Systolic blood pressure 2019-05-30 21:01:00 141 mm[Hg] [facility] Diastolic blood pressure 2019-05-30 21:01:00 84 mm[Hg] [facility] Heart rate 2019-05-30 21:01:00 84 /min [facility] Respiratory rate 2019-05-30 21:01:00 18 /min [facility] Body height 2019-05-30 21:01:00 188 cm [facility] Body weight 2019-05-30 21:01:00 129.275 kg [facility] BMI 2019-05-30 21:01:00 36.59 kg/m2 [facility] Oxygen saturation in Arterial blood by Pulse oximetry 2019-05-30 21:01:00 98 /min [facility] Systolic blood pressure 2019-05-30 21:01:00 141 mm[Hg] [facility] Diastolic blood pressure 2019-05-30 21:01:00 84 mm[Hg] [facility] Heart rate 2019-05-30 21:01:00 84 /min [facility] Respiratory rate 2019-05-30 21:01:00 18 /min [facility] Body height 2019-05-30 21:01:00 188 cm [facility] Body weight 2019-05-30 21:01:00 129.275 kg [facility] BMI 2019-05-30 21:01:00 36.59 kg/m2 [facility] Oxygen saturation in Arterial blood by Pulse oximetry 2019-05-30 21:01:00 98 /min [facility] Procedures Procedure Date / Time Performed Performing Clinician Source XR CHEST 1 VW 2021-06-22 02:44:[address] [facility]FF 2021-06-22 00:53:00 Javier Rao [facility] GLYCOSYLATED HEMOGLOBIN (A1C) 2021-06-22 00:53:[address] [facility] COVID-19 (ID NOW RAPID TESTING) 2021-06-22 00:53:[address] [facility] BASIC METABOLIC PANEL (NA, K, CL, CO2, GLUCOSE, BUN, CREATININE, CA) 2021-06-22 00:52:[address] [facility] CONSENT/REFUSAL FOR DIAGNOSIS AND TREATMENT 2021-06-22 00:09:58 Doctor Unassigned, [place] [facility] NOTICE OF PRIVACY PRACTICES 2019-05-30 20:50:54 Doctor Unassigned, [place] [facility] CONSENT/REFUSAL FOR DIAGNOSIS AND TREATMENT 2019-05-30 20:50:26 Doctor Unassigned, [place] [facility] Encounters Start Date/Time End Date/Time Encounter Type Admission Type Attending Clinicians Care Facility Care Department Encounter ID Source 2024-04-20 15:13:00 2024-04-20 15:45:00 Emergency X TRACEY SANDOVAL [facility] ERT [id number] [facility] 2024-04-20 15:13:00 2024-04-20 15:45:00 Emergency Tracey Sandoval [facility] [id number] [facility] 2021-06-21 19:10:00 2021-06-21 23:04:00 Emergency Javier Rao [facility] [id number] [facility] 2021-06-21 18:59:00 2021-06-21 18:59:00 Emergency X [facility] ERT [id number] [facility] 2019-05-30 16:02:51 2019-05-30 17:01:00 Emergency Azalea Johnson [facility] [id number] [id number] 2019-05-30 16:02:51 2019-05-30 17:01:00 Emergency Azalea Johnson [facility] [id number] [facility] Results Test Description Test Time Test Comments Results Result Co mments Source [facility]2021-06-22 02:42:50* Test Item Value Reference Range Interpretation Comme nts HGB A1C (test code = 4548-4) >14.0 4.0-5.7 H CARLY (test code = CARLY) Lab Interpretation (test cod e = 03432-9) [facility]normal [facility] [id number] 01:54:55* Test Item Value Reference Range Interpretation Comme nts WBC (test code = 6690-2) See_Comment [Automated [employer] appbackr] The system which generated this result transmitted reference range: 4.20 - 10.70 10*3/?L. The reference range was not used to interpret this result as normal/abnormal. RBC (test code = 789-8) See_Comment [Automated [employer] appbackr] The system which generated this result transmitted [...] 34.2 g/dL 31.2-35.0 RDW-SD (test code = 68825-4) 37.8 fL 38.5-51.6 L RDW-CV (test code = 788-0) 12.1 % 12.1-15.4 PLT (test code = 777-3) See_Comment L [Automated messa ge] The system which generated this result transmitted reference range: 150 - 328 10*3/?L. The reference range was not used to interpret this result as normal/abnormal. MPV (test code = 46654-2) 11.9 fL 9.8-13.0 NRBC/100 WBC (test code = 4557892127) See_Comment [Automated me ssage] The system which generated this result transmitted reference range: 0.0 - 10.0 /100 WBCs. The reference range was not used to interpret this result as normal/abnormal. NRBC x10^3 (test code = 7752728506) <0.01 See_Comment [Automated messa ge] The system which generated this result transmitted reference range: 10*3/?L. The reference range was not used to interpret this result as normal/abnormal. GRAN MAT (NEUT) % (test code = 770-8) 67.9 % IMM GRAN % (test code = 0233134372) 0.40 % LYMPH % (test code = 736-9) 24.6 % MONO % (test code = 5905-5) 7.0 % EOS % (test code = 713-8) 0.0 % BASO % (test code = 706-2) 0.1 % GRAN MAT x10^3(ANC) (test code = 6800957477) 4.59 10*3/uL 1.99-6.95 IMM GRAN x10^3 (test code = 3851517333) 0.03 10*3/uL 0.00-0.06 LYMPH x10^3 (test code = 731-0) 1.66 10*3/uL 1.09-3.23 MONO x10^3 (test code = 742-7) 0.47 10*3/uL 0.36-1.02 EOS x10^3 (test code = 711-2) <0.03 0.06-0.53 L BASO x10^3 (test code = 704-7) <0.03 0.01-0.09 REACT LYMPHS (test code = 8103241712) Rare Lab Interpretation (test code = 89069-3) Abnormal [facility] WITH [id number] 01:54:55* Test Item Value Reference Range Interpretation [...] 34.2 g/dL 31.2-35.0 RDW-SD (test code = 50974-6) 37.8 fL 38.5-51.6 L RDW-CV (test code = 788-0) 12.1 % 12.1-15.4 PLT (test code = 777-3) See_Comment L [Automated messa ge] The system which generated this result transmitted reference range: 150 - 328 10*3/?L. The reference range was not used to interpret this result as normal/abnormal. MPV (test code = 39104-1) 11.9 fL 9.8-13.0 NRBC/100 WBC (test code = 4325242314) See_Comment [Automated me ssage] The system which generated this result transmitted reference range: 0.0 - 10.0 /100 WBCs. The reference range was not used to interpret this result as normal/abnormal. NRBC x10^3 (test code = 5874747470) <0.01 See_Comment [Automated messa ge] The system which generated this result transmitted reference range: 10*3/?L. The reference range was not used to interpret this result as normal/abnormal. GRAN MAT (NEUT) % (test code = 770-8) 67.9 % IMM GRAN % (test code = 4029550028) 0.40 % LYMPH % (test code = 736-9) 24.6 % MONO % (test code = 5905-5) 7.0 % EOS % (test code = 713-8) 0.0 % BASO % (test code = 706-2) 0.1 % GRAN MAT x10^3(ANC) (test code = 5691455259) 4.59 10*3/uL 1.99-6.95 IMM GRAN x10^3 (test code = 1975399220) 0.03 10*3/uL 0.00-0.06 LYMPH x10^3 (test code = 731-0) 1.66 10*3/uL 1.09-3.23 MONO x10^3 (test code = 742-7) 0.47 10*3/uL 0.36-1.02 EOS x10^3 (test code = 711-2) <0.03 0.06-0.53 L BASO x10^3 (test code = 704-7) <0.03 0.01-0.09 REACT LYMPHS (test code = 6920473243) Rare Lab Interpretation (test code = 52115-0) Abnormal [facility] METABOLIC PANEL (NA, K, CL, CO2, GLUCOSE, BUN, CREATININE, CA)2021-06-22 01:17:05* Test Item Value Reference Range Interpretation Comme nts NA (test code = 9090598683) 129 mmol/L 135-145 L K (test code = 1400656368) 4.1 mmol/L 3.5-5.0 CL (test code = 0152544829) 93 mmol/L 98-108 L CO2 TOTAL (test code = 8186292921) 27 mmol/L 23-31 AGAP (test code = 0376882903) 2-16 BUN (test code = 9999455760) 7 mg/dL 7-23 GLUCOSE (test code = 1294416458) 341 mg/dL 70-110 H CREATININE (test code = 1706543349) 0.76 mg/dL 0.60-1.25 CALCIUM (test code = 2010937045) 8.7 mg/dL 8.6-10.6 eGFR (test code = 4825763596) mL/min/1.73m2 CARLY (test code = CARLY) Association [...] imaging tests). Lab Interpretation (test code = 11093-2) [facility] (NA, K, CL, CO2, GLUCOSE, BUN, CREATININE, CA)2021-06-22 01:17:05* Test Item Value Reference Range Interpretation Comme nts NA (test code = 4686757246) 129 mmol/L 135-145 L K (test code = 9345247970) 4.1 mmol/L 3.5-5.0 CL (test code = 1575819274) 93 mmol/L 98-108 L CO2 TOTAL (test code = 3399123461) 27 mmol/L 23-31 AGAP (test code = 7822823875) 2-16 BUN (test code = 3102262848) 7 mg/dL 7-23 GLUCOSE (test code = 4133177259) 341 mg/dL 70-110 H CREATININE (test code = 9761089367) 0.76 mg/dL 0.60-1.25 CALCIUM (test code = 8377728656) 8.7 mg/dL 8.6-10.6 eGFR (test code = 1215975479) mL/min/1.73m2 CARLY (test code = CARLY) Lab Interpretation (test cod e = 44148-8) [facility]normal [facility] (ID NOW RAPID TESTING)2021-06-22 01:15:24* Test Item Value Reference Range Interpretation Comme nts SARS-CoV-2 Rapid ID NOW (test code = 95600-8) Positive Not Detected A CARLY (test code = CARLY) ID NOW COVID-19 As say is an isothermal nucleic acid amplification test intended for the qualitative detection of nucleic acid from SARS-CoV-2 viral RNA in nasopharyngeal (TRACK LAYING EQUIPMENT OPERATOR) specimens. It is used under Emergency Use [...] clinically indicated. Lab Interpretation (test code = 76916-3) [facility] NOW RAPID TESTING)2021-06-22 01:15:24* Test Item Value Reference Range Interpretation Comme nts SARS-CoV-2 Rapid ID NOW (nahomy t code = 14964-4) Positive Not Detected A CARLY (test code = CARLY) Lab Interpretation (test cod e = 97036-9) Abnormal [facility]"
--- NOTE | 2024-12-01 13:35 | RAD REPORT ---
EXAMINATION: TWO VIEW CHEST XR CLINICAL INDICATION: CHEST PAIN TECHNIQUE: 2 views of the chest was performed. COMPARISON: 11/07/2021 FINDINGS: Mild pulmonary edema is a possibility. The heart is mildly enlarged. No displaced fractures evident.
[2024-12-01] MEDS ORDERED: KETOROLAC 30 MG/ML INJ ONE (14:57)
--- NOTE | 2024-12-01 14:57 | ER ---
Nurse's Notes [facility] Name: Enriqueta Hearn Age: 29 yrs Sex: Male : 1995 Arrival Date: 12/01/2024 Time: 12:40 Bed 17 Private MD: Diagnosis: Chest pain, unspecified Presentation: 12/01 13:11 Chief complaint: Patient states: Chest and back pain that began 2 days ago. Pt reports ss he just got over a respiratory illness over the past week and still has a residual cough. Denies fever. Coronavirus screen: Client denies travel out of the [place] in the last 14 days. Ebola Screen: Patient denies exposure to infectious person. Patient denies travel to an Ebola-affected area in the 21 days before illness onset. Initial Sepsis Screen: Does the patient meet any 2 criteria? No. Patient's initial sepsis screen is negative. Does the patient have a suspected source of infection? No. Patient's initial sepsis screen is negative. Risk Assessment: Do you want to hurt yourself or someone else? Patient reports no desire to harm self or others. Onset of symptoms was November 29, 2024. 13:11 Method Of Arrival: Ambulatory ss 13:11 Acuity: HARESH 3 ss Triage Assessment: 14:20 General: Appears in no apparent distress. Behavior is calm, cooperative. Pain: kj2 Complains of pain in chest Pain currently is 4 out of 10 on a pain scale. Cardiovascular: Patient's skin is warm and dry. Respiratory: Airway is patent Respiratory effort is even, unlabored. GI: No signs and/or symptoms were reported involving the gastrointestinal system. : No signs and/or symptoms were reported regarding the genitourinary system. Historical: - Allergies: 13:13 No Known Allergies; ss - PMHx: 13:13 Diabetes - IDDM; Hypertension; enlarged heart; ss - PSHx: 13:13 foot; ss - Immunization history:: Client reports receiving the 2nd dose of the Covid vaccine. - Infectious Disease History:: Denies. - Social history:: Smoking status: Patient reports the use of cigarette tobacco products, denies chronic smoking, but will smoke occasionally. - Family history:: not pertinent. - Hospitalizations: : No recent hospitalization is reported. Screenin:08 [facility] ED Fall Risk Assessment (Adult) History of falling in the last 3 months, kj2 including since admission No falls in past 3 months (0 pts) Confusion or Disorientation No (0 pts) Intoxicated or Sedated No (0 pts) Impaired Gait No (0 pts) Mobility Assist Device Used No (0 pt) Altered Elimination No (0 pt) Score/Fall Risk Level 0 - 2 = Low Risk Maintained a safe environment, Hourly rounding (assess needs \T\ fall precautionary measures) done. Abuse screen: Denies threats or abuse. Denies injuries from another. Nutritional screening: No deficits noted. Tuberculosis screening: No symptoms or risk factors identified. Assessment: 12:53 Reassessment: called to triage. Family member states that patient is in XRAY at this ss time. 14:20 Reassessment: Patient appears in no apparent distress at this time. Patient and/or kj2 family updated on plan of care and expected duration. Pain level reassessed. Patient is alert, oriented x 3, equal unlabored respirations, skin warm/dry/pink. 14:20 Cardiovascular: Reports chest pain. kj2 14:20 Reassessment: patient placed in room by triage. kj2 15:06 Reassessment: Patient appears in no apparent distress at this time. Patient and/or kj2 family updated on plan of care and expected duration. Pain level reassessed. Patient is alert, oriented x 3, equal unlabored respirations, skin warm/dry/pink. 15:11 Pain: Pain does not radiate. Pain began suddenly. kj2 Vital Signs: 13:11 Pulse 77; Resp 14; Temp 98.3(TE); Pulse Ox 99% on R/A; Weight 120.2 kg; Height 6 ft. 1 ss in. ; Pain 8/10; 14:20 BP 128 / 86; Pulse 72; Resp 20; Pulse Ox 100% on R/A; kj2 15:07 BP 129 / 85; Pulse 74; Resp 20; Temp 98.2; Pulse Ox 98% on R/A; kj2 13:11 Body Mass Index 34.96 (120.20 kg, 185.42 cm) ss 13:11 Pain Scale: Adult ss ED Course: 12:42 Patient arrived in ED. im 12:43 Augustin King MD is Attending Physician. rn 13:13 Triage completed. ss 13:13 Arm band placed on left wrist. ss 13:24 XRAY Chest Pa And Lat (2 Views) In Process Unspecified. EDMS 14:20 Patient has correct armband on for positive identification. Bed in low position. Call kj2 light in reach. Adult w/ patient. Provided Education on: call light. Client placed on continuous cardiac and pulse oximetry monitoring. NIBP monitoring applied. relay worker on. 14:39 Gisele Ramírez, RN is Primary Nurse. kj2 15:10 No provider procedures requiring assistance completed. Patient did not have IV access kj2 during this emergency room visit. Patient maintains SpO2 saturation greater than 95% on room air. Administered Medications: 15:12 Drug: Ketorolac IM 30 mg IM once Route: IM; Site: right deltoid; kj2 Medication: 15:08 VIS not applicable for this client. kj2 Outcome: 14:57 Discharge ordered by . rn 15:10 Discharged to home ambulatory, kj2 15:10 Condition: stable 15:10 Discharge instructions given to patient, Instructed on discharge instructions, follow up and referral plans. Demonstrated understanding of instructions, follow-up care, 15:12 Patient left the ED. kj2 Signatures: Dispatcher [employer] EDMS Augustin King MD MD rn Blanchard, Shelby, RN RN Gabriella Melvin Gisele Ramírez, RN RN kj2
--- NOTE | 2024-12-01 14:57 | EDPHYS ---
Physician Documentation [facility] Name: Enriqueta Hearn Age: 29 yrs Sex: Male : 1995 Arrival Date: 12/01/2024 Time: 12:40 Bed 17 Private MD: ED Physician Augustin King HPI: 12/01 13:26 This 29 yrs old Black Male presents to ER via Ambulatory with complaints of Chest Pain, rn Back Pain. 13:26 The patient or guardian reports chest pain that is located primarily in the anterior rn chest wall. The pain radiates to Associated signs and symptoms: Pertinent positives: cough, Pertinent negatives: shortness of breath, syncope, vomiting. The chest pain is described as sharp, stabbing. Duration: The patient or guardian reports multiple episodes, that are intermittent. Modifying factors: The symptoms are alleviated by nothing. the symptoms are aggravated by cough, deep breath. Severity of pain: At its worst the pain was mild in the emergency department the pain is unchanged. The patient has not experienced similar symptoms in the past. Patient reports anterior chest pain and back pain when taking a deep breath and coughing. Patient reports was sick last week with a cough but overall feeling better. Is a smoker. Still coughing a little bit. Reports told "had an enlarged heart" as a child but never needed intervention or surgery. Has not had any cardiac problems. No hemoptysis. No history of DVT or PE. No abdominal pain. No trauma. No leg swelling.. Historical: - Allergies: 13:13 No Known Allergies; ss - PMHx: 13:13 Diabetes - IDDM; Hypertension; enlarged heart; ss - PSHx: 13:13 foot; ss - Immunization history:: Client reports receiving the 2nd dose of the Covid vaccine. - Infectious Disease History:: Denies. - Social history:: Smoking status: Patient reports the use of cigarette tobacco products, denies chronic smoking, but will smoke occasionally. - Family history:: not pertinent. - Hospitalizations: : No recent hospitalization is reported. ROS: 13:26 Constitutional: Negative for fever, chills, and weight loss, Neck: Negative for injury, rn pain, and swelling, Cardiovascular: Positive for chest pain Respiratory: Positive for cough Abdomen/GI: Negative for abdominal pain, nausea, vomiting, diarrhea, and constipation, Back: Negative for injury and pain, MS/Extremity: Negative for injury and deformity, Skin: Negative for injury, rash, and discoloration, Neuro: Negative for headache, weakness, numbness, tingling, and seizure, Exam: 13:26 Constitutional: This is a well developed, well nourished patient who is awake, alert, rn and in no acute distress. Chest/axilla: No crepitus. Reproducible anterior chest wall pain with palpation Cardiovascular: Regular rate and rhythm. No pulse deficits. Respiratory: Speaking full sentences, unlabored. No increased work of breathing, no retractions or nasal flaring. Abdomen/GI: Soft, nontender 14:54 ECG was reviewed by the Attending Physician. rn Vital Signs: 13:11 Pulse 77; Resp 14; Temp 98.3(TE); Pulse Ox 99% on R/A; Weight 120.2 kg; Height 6 ft. 1 ss in. ; Pain 8/10; 14:20 BP 128 / 86; Pulse 72; Resp 20; Pulse Ox 100% on R/A; kj2 15:07 BP 129 / 85; Pulse 74; Resp 20; Temp 98.2; Pulse Ox 98% on R/A; kj2 13:11 Body Mass Index 34.96 (120.20 kg, 185.42 cm) ss 13:11 Pain Scale: Adult ss MDM: 12:43 Medical Screening Exam initiated rn 14:55 ED course: ECG not in normal ECG but shows nonspecific T wave inversions mainly in the rn lateral leads. Does show incomplete right bundle branch block with J-point elevation in lead aVL and V2 without any reciprocal changes. Compared to previous ECG and basically the same findings. I do not believe this is acute ischemic event but I recommended blood work including troponin to patient. Patient understands what is going on after I explained to and told him I wanted to be safe and rule out acute MS even though low likelihood, patient does not want to stay for evaluation. States his grandmother is make an appointment with classifications officer cc/cm and will return if anything worsens.. 14:57 Differential diagnosis: acute pericarditis, anxiety, chest wall pain, costochondritis, rn pleurisy, pneumonia, pneumothorax. Data reviewed: vital signs, nurses notes, radiologic studies. Counseling: I had a detailed discussion with the patient and/or guardian regarding the historical points, exam findings, and any diagnostic results supporting the discharge/admit diagnosis, radiology results, the need for outpatient follow up, to return to the emergency department if symptoms worsen or persist or if there are any questions or concerns that arise at home. Refusal of service: The patient/guardian displays adequate decision making capability and despite a detailed discussion of alternatives, benefits, risks, and consequences refuses: all lab tests. 12/01 12:43 Order name: XRAY Chest Pa And Lat (2 Views); Complete Time: 14:16 rn 12/01 13:18 Order name: EKG - Nurse/Tech ss 12/01 14:52 Order name: IV Start rn EC:54 Rate is 71 beats/min. Rhythm is regular. QRS [place] is Normal. UT interval is normal. QRS rn interval is normal. QT interval is normal. No Q waves. T waves are Inverted in leads III, V3, V4, V5, V6. No ST changes noted. Clinical impression: NSR w/ Non-specific ST/T Changes. Reviewed by me. Administered Medications: 15:12 Drug: Ketorolac IM 30 mg IM once Route: IM; Site: right deltoid; kj2 Disposition Summary: 12/01/24 14:57 Discharge Ordered Notes: Location: Home rn Problem: new rn Symptoms: have improved rn Condition: Stable rn Diagnosis - Chest pain, unspecified rn Followup: rn - With: Private Physician - When: As needed - Reason: Recheck today's complaints, Re-evaluation by your physician Discharge Instructions: - Discharge Summary Sheet rn - Nonspecific Chest Pain, Adult rn - Pain Without a Known Cause rn - Pleurisy rn Forms: - Medication Reconciliation Form rn - Antibiotic international trade manager - Prescription Opioid Use rn - Patient Portal Instructions rn - Leadership Thank You Letter rn Prescriptions: - Prednisone 20 mg Oral Tablet - take 3 tablets ORAL route once daily for 5 days; 15 tablet; Refills: 0, Product rn Selection Permitted - Zithromax Z-Manuel 250 mg Oral Tablet - take 1 tablet ORAL route as directed for 5 days Day 1 - take two (2) tablets rn one time. Day 2, 3, 4 , 5 take one (1) tablet once daily.; 6 tablet; Refills: 0, Product Selection Permitted Signatures: Dispatcher [email or web address] EDUT King, Augustin, MD MD rn Darling, Gila, RN RN ss Darrell, Gisele, RN RN kj2
[2024-12-01 15:20] VITALS: BP 129/85; TEMP 98.2; O2SAT 98
--- NOTE | 2024-12-03 12:47 | EKG ---
Test Date: 2024-12-01 Test Time: 14:45:54 Time Analysis Clerk: KIM MEASUREMENT RESULTS: Intervals: Rate: 71 UT: 138 QRSD: 112 QT: 396 QTc: 430 [place]: P: 35 UT: 138 QRS: 87 T: -8 INTERPRETIVE STATEMENTS: Normal sinus rhythm ST elevation, consider lateral injury or acute infarct ACUTE [place] Abnormal ECG Compared to ECG 11/06/2021 23:33:00 ST (T wave) deviation now present Myocardial infarct finding now present T-wave abnormality no longer present Electronically Signed On 12-03-24 12:42:52 ELASTIC ASSEMBLER by Main Yang
== END 2024-12-01 15:12 | disposition home or self-care (01) ==
LOC: ER 12:40
DX: R07.9 Chest pain, unspecified (principal); R05.9 Cough, unspecified; F17.210 Nicotine dependence, cigarettes, uncomplicated
CPT/HCPCS: 71046; 93005; 96372; 99284